=== PATIENT | female | born 1955 | race Caucasian/White ===

== ENCOUNTER 2019-07-31 08:35 | Outpatient (CLI) | payer MEDICARE, MEDICAID, SELFPAY ==
--- NOTE | 2019-07-31 08:45 | USCV_ITS ---
Génesis Titus Age: 64 Gender: F : 1955 Exam Date: 07/31/2019 08:44 Ordering Phys: Nessa Diaz MD ([email or web address]) Technologist: Wilner Mcgee Exam Location: [facility] Indication: LV FUNCT BP: 124 / 75 HR: 75 Rhythm: Sinus Technical Quality: Adequate MEASUREMENTS (Male / Female) Normal Values 2D ECHO LV Diastolic Diameter PLAX 4.3 cm 4.2 - 5.9 / 3.9 - 5.3 cm LV Systolic Diameter PLAX 2.5 cm IVS Diastolic Thickness 1.3 cm 0.6 - 1.0 / 0.6 - 0.9 cm IVS Systolic Thickness 1.2 cm LVPW Diastolic Thickness 1.1 cm 0.6 - 1.0 / 0.6 - 0.9 cm LVPW Systolic Thickness 1.4 cm LVOT Diameter 2.1 cm LV Ejection Fraction 2D Teich 73.6 % LV Ejection Fraction MOD 2C 71.7 % LV Ejection Fraction 2C AL 72.2 % LA Diameter 3.1 cm LA Width 3.4 cm LA Height 4.9 cm RA Width 3.3 cm RA Height 4.3 cm M-MODE LV Diastolic Diameter MM 5.5 cm 4.2 - 5.9 / 3.9 - 5.3 cm LV Systolic Diameter MM 3.3 cm LV Ejection Fraction MM Teich 70.7 % IVS Diastolic Thickness MM 1.0 cm 0.6 - 1.0 / 0.6 - 0.9 cm IVS Systolic Thickness MM 1.9 cm LVPW Diastolic Thickness MM 1.2 cm 0.6 - 1.0 / 0.6 - 0.9 cm LVPW Systolic Thickness MM 2.3 cm RV Diastolic Diameter MM 1.4 cm Aortic Annulus Diameter 3.5 cm LA Ao Ratio MM 0.9 MV E Point Septal Separation 1.1 cm DOPPLER AV Peak Velocity 160.0 cm/s LVOT Peak Velocity 137.0 cm/s AV Area Cont Eq vti 2.7 cm squared AV Area Cont Eq pk 3.0 cm squared MV Area PHT 4.3 cm squared Mitral E to A Ratio 0.7 MV E' Velocity 7.0 cm/s Mitral E to MV E' Ratio 2.2 Mitral E to LV E' Lateral Ratio 10.2 Mitral E to LV E' Septal Ratio 1.3 TR Peak Velocity 149.0 cm/s TR Peak Gradient 8.8 mmHg TV Peak E Velocity 59.0 cm/s Right Atrial Pressure 3.0 mmHg Pulmonary Artery Systolic Pressu 11.9 mmHg PV Peak Velocity 106.0 cm/s FINDINGS Left Ventricle Normal left ventricular cavity size. Normal left ventricular systolic function. No regional wall motion abnormalities. Left ventricular ejection fraction is estimated at 65 %. Grade I/IV diastolic dysfunction (abnormal relaxation filling pattern), normal to mildly elevated filling pressures. Right Ventricle The right ventricle is normal in size and function. Right Atrium The right atrium is normal in size. Left Atrium The left atrium is normal in size. Mitral Valve Mildly thickened mitral valve. No mitral valve stenosis. Trace mitral valve regurgitation. Aortic Valve Moderate aortic valve calcification. No aortic valve stenosis. Trace aortic valve regurgitation. Tricuspid Valve Structurally normal tricuspid valve without significant stenosis or regurgitation. Pulmonary artery systolic pressure is normal. Pulmonic Valve Structurally normal pulmonic valve without significant stenosis. There is no pulmonic regurgitation. Pericardium Normal pericardium without effusion. Aorta Normal ascending aorta dimension. CONCLUSIONS 1-Normal left ventricular cavity size. Normal left ventricular systolic function. No regional wall motion abnormalities. Left ventricular ejection fraction is estimated at 65 %. Grade I/IV diastolic dysfunction (abnormal relaxation filling pattern), normal to mildly elevated filling pressures. 2-Mildly thickened mitral valve. No mitral valve stenosis. Trace mitral valve regurgitation. 3-Moderate aortic valve calcification. No aortic valve stenosis. Trace aortic valve regurgitation. 4-There is no pericardial effusion. 5-Pulmonary artery systolic pressure is within normal limits. 6-Right atrial pressure is around 5 mm of mercury. 7-There are no prior echocardiogram studies to compare. Nessa Diaz MD (Electronically Signed) Final Date: 02 August 2019 11:16 S
== END 2019-07-31 08:36 | disposition home or self-care (01) ==
LOC: RAD 08:39
PROVIDERS: PCP Family Medicine; Visit Provider Internal Medicine Cardiovascular Disease
DX: I08.0 Rheumatic disorders of both mitral and aortic valves (principal); R06.02 Shortness of breath
CPT/HCPCS: 93306

== ENCOUNTER 2019-08-03 06:59 | Outpatient (CLI) | payer MEDICARE, MEDICAID, SELFPAY ==
--- NOTE | 2019-08-03 07:27 | ECG_ITS ---
NAME OF STUDY: LEXISCAN SESTAMIBI STRESS TEST INDICATION: Chest Pain, NOTE: Please note that this is the electrocardiogram portion of the Lexiscan/Sestamibi stress test. The perfusion scan will be documented separately. DATA: Baseline heart rate was 83 beats per minute. Baseline blood pressure was 143/91 millimeters of mercury. Target heart rate was 155. Maximum heart rate achieved was 99. which was 63 % of the predicted target heart rate. Maximum blood pressure was 171/91 millimeters of mercury. The reason for ending the test was completion of the protocol. The patient did not experience any symptoms. ELECTROCARDIOGRAM: BASELINE: Sinus rhythm. Normal axis. Possible old anterior wall myocardial infarction. Interventricular conduction delay EXERCISE: After Lexiscan injection, mild inferolateral ST-T changes suggestive of ischemic noted. No arrhythmia noted. CONCLUSION: Please note due to baseline abnormality of the EKG specificity and sensitivity of the EKG portion of LexiScan MIBI stress test will be low 1. EKG is suggestive of ischemia 2. Lexiscan injection unremarkable. 3. Perfusion scan will be documented separately. Electronically Signed On 08-04-2019 19:02:47 [employer] ARCHITECT by Nessa Diaz M.D. [email or web address]
[2019-08-03 07:28] VITALS: BMI 30.4
--- NOTE | 2019-08-03 07:28 | NMCV_ITS ---
NM deysi perf SPECT r/s* [id number] Génesis Titus Age: 64 Gender: F : 1955 Exam Date: 08/03/2019 08:22 Ordering Phys: Nessa Diaz MD ([email or web address]) Technologist: KENYON Marcos Exam Location: [facility] Indications: SHORTNESS OF BREATH STRESS TEST [facility] IMAGE PROTOCOL Rest/Stress 1 Lexiscan Day Radiopharmaceutical Dose (mCi) Administration Site Administered by Rest: Tc-99m 10.7 IV KENYON Swift Sestamibi Stress:Tc-99m 32.8 IV KENYON Swift Sestamibi Rest: 03-Aug-2019 60 Discovery 630 Stress: 03-Aug-2019 30 Discovery 630 0.4mg Lexiscan. Images obtained in supine and prone position. SPECT RESULTS Technical Quality: Excellent Raw Data Analysis: Breast attenuation Image Corrections: No attenuation or motion correction applied Summed Stress Score: 0 Summed Rest Score: 0 Summed Difference Score: 0 PERFUSION FINDINGS SPECT images demonstrate homogeneous tracer distribution throughout the myocardium. FUNCTIONAL RESULTS (calculated via Gated SPECT) Stress Image LV EF (%): 73 Stress EDV (mL):74 TID: 0.75 Stress ESV (mL):20 Rest Image LV EF (%): 73 FUNCTIONAL FINDINGS: There is normal left ventricular systolic function. IMPRESSIONS Myocardial perfusion imaging is normal and low probability for obstructive coronary disease. EKG segment will be documented separately. Nessa Diaz MD (Electronically Signed) Final Date: 03 August 2019 18:13 S
--- NOTE | 2019-08-03 09:08 | PC.NURSE ---
Unable to meet target Heart rate Pt unable to meet target heart rate on treadmill for stress test. Changed to chemical stress test per DR Joe torrez.
[2019-08-03] MEDS: regadenoson 0.4 Mg/5 ml Syringe IVP (09:10)
[2019-08-03 09:12] VITALS: BP 171/81; PULSE 96
== END 2019-08-03 07:00 | disposition home or self-care (01) ==
PROVIDERS: Family Provider Family Medicine; PCP Family Medicine; Visit Provider Internal Medicine Cardiovascular Disease
DX: R06.02 Shortness of breath (principal); R07.9 Chest pain, unspecified
CPT/HCPCS: 78452; 93017; A9500; J2785

== ENCOUNTER 2020-06-24 20:00 | Outpatient (CLI) | payer MEDICARE, MEDICAID, SELFPAY | END 2020-06-24 20:01 | disposition home or self-care (01) | LOC: SLEEP 06-25 09:07 | PROVIDERS: Family Provider Family Medicine; PCP Family Medicine; Visit Provider Family Medicine | DX: G47.33 Obstructive sleep apnea (adult) (pediatric) (principal) | CPT/HCPCS: 95810 ==

== ENCOUNTER → 2020-08-06 10:39 | Outpatient (BNVA) | payer MEDICARE, MEDICAID, SELFPAY | PROVIDERS: Family Provider Family Medicine; PCP Family Medicine; Referring Provider Family Medicine; Visit Provider Anesthesiology Pain Medicine | DX: M79.18 Myalgia, other site (principal); M47.812 Spondylosis without myelopathy or radiculopathy, cervical region; M54.12 Radiculopathy, cervical region; M47.814 Spondylosis without myelopathy or radiculopathy, thoracic region | CPT/HCPCS: 20553; 99205; J1030; J3490 ==

== ENCOUNTER → 2020-09-04 11:20 | Outpatient (BNVA) | payer MEDICARE, MEDICAID, SELFPAY | PROVIDERS: Family Provider Family Medicine; PCP Family Medicine; Visit Provider Anesthesiology Pain Medicine | DX: M79.18 Myalgia, other site (principal); M47.812 Spondylosis without myelopathy or radiculopathy, cervical region; M54.12 Radiculopathy, cervical region; M47.814 Spondylosis without myelopathy or radiculopathy, thoracic region; F17.210 Nicotine dependence, cigarettes, uncomplicated | CPT/HCPCS: 20553; 99214; J1030; J3490 ==

== ENCOUNTER → 2020-09-16 13:51 | Outpatient (BNVA) | payer MEDICARE, MEDICAID, SELFPAY | PROVIDERS: Family Provider Family Medicine; PCP Family Medicine; Visit Provider Anesthesiology Pain Medicine | DX: M47.812 Spondylosis without myelopathy or radiculopathy, cervical region (principal) | CPT/HCPCS: 64490; 64491; 64492; J3490 ==

== ENCOUNTER → 2020-10-01 09:37 | Outpatient (BNVA) | payer MEDICARE, MEDICAID, SELFPAY | PROVIDERS: Family Provider Family Medicine; PCP Family Medicine; Visit Provider Anesthesiology Pain Medicine | DX: M47.812 Spondylosis without myelopathy or radiculopathy, cervical region (principal); M54.12 Radiculopathy, cervical region; M47.814 Spondylosis without myelopathy or radiculopathy, thoracic region; M62.830 Muscle spasm of back; F17.210 Nicotine dependence, cigarettes, uncomplicated | CPT/HCPCS: 99214 ==

== ENCOUNTER → 2020-10-22 10:03 | Outpatient (BNVA) | payer MEDICARE, MEDICAID, SELFPAY | PROVIDERS: Family Provider Family Medicine; PCP Family Medicine; Visit Provider Anesthesiology Pain Medicine | DX: M47.812 Spondylosis without myelopathy or radiculopathy, cervical region (principal); M54.12 Radiculopathy, cervical region; M47.814 Spondylosis without myelopathy or radiculopathy, thoracic region; M47.816 Spondylosis without myelopathy or radiculopathy, lumbar region; M62.830 Muscle spasm of back; F17.210 Nicotine dependence, cigarettes, uncomplicated | CPT/HCPCS: 99214 ==

== ENCOUNTER 2020-10-31 20:00 | Outpatient (CLI) | payer MEDICARE, MEDICAID, SELFPAY | END 2020-10-31 20:01 | disposition home or self-care (01) | LOC: SLEEP 11-01 05:37 | PROVIDERS: Family Provider Family Medicine; PCP Family Medicine; Visit Provider Nurse Practitioner Family | DX: G47.33 Obstructive sleep apnea (adult) (pediatric) (principal) | CPT/HCPCS: 95811 ==

== ENCOUNTER → 2020-11-12 14:43 | Outpatient (BNVA) | payer MEDICARE, MEDICAID, SELFPAY | PROVIDERS: Family Provider Family Medicine; PCP Family Medicine; Visit Provider Anesthesiology Pain Medicine | DX: M47.816 Spondylosis without myelopathy or radiculopathy, lumbar region (principal); M54.9 Dorsalgia, unspecified; F17.210 Nicotine dependence, cigarettes, uncomplicated | CPT/HCPCS: 64493; 64494; 64495; J3490 ==

== ENCOUNTER → 2020-12-11 10:38 | Outpatient (BNVA) | payer MEDICARE, MEDICAID, SELFPAY | PROVIDERS: Family Provider Family Medicine; PCP Family Medicine; Visit Provider Anesthesiology Pain Medicine | DX: G89.29 Other chronic pain (principal); M47.812 Spondylosis without myelopathy or radiculopathy, cervical region; M54.12 Radiculopathy, cervical region; M47.814 Spondylosis without myelopathy or radiculopathy, thoracic region; M47.816 Spondylosis without myelopathy or radiculopathy, lumbar region; M62.830 Muscle spasm of back | CPT/HCPCS: 99214 ==

== ENCOUNTER → 2020-12-18 14:16 | Outpatient (BNVA) | payer MEDICARE, MEDICAID, SELFPAY | PROVIDERS: Family Provider Family Medicine; PCP Family Medicine; Visit Provider Anesthesiology Pain Medicine | DX: M47.812 Spondylosis without myelopathy or radiculopathy, cervical region (principal) | CPT/HCPCS: 64490; 64491; 64492; J3490 ==

== ENCOUNTER → 2021-01-17 13:03 | Outpatient (BNVA) | payer MEDICARE, MEDICAID, SELFPAY | PROVIDERS: Family Provider Family Medicine; PCP Family Medicine; Visit Provider Surgery | DX: Z20.822 Contact with and (suspected) exposure to COVID-19 (principal); Z86.010 Personal history of colon polyps | CPT/HCPCS: 87635 ==

== ENCOUNTER → 2021-03-21 09:40 | Outpatient (BNVA) | payer MEDICARE, MEDICAID, SELFPAY | PROVIDERS: Family Provider Family Medicine; PCP Family Medicine; Visit Provider Anesthesiology Pain Medicine | DX: M47.812 Spondylosis without myelopathy or radiculopathy, cervical region (principal); M54.12 Radiculopathy, cervical region; M47.814 Spondylosis without myelopathy or radiculopathy, thoracic region; M47.816 Spondylosis without myelopathy or radiculopathy, lumbar region; M62.830 Muscle spasm of back | CPT/HCPCS: 99214 ==

== ENCOUNTER → 2021-04-03 14:35 | Outpatient (BNVA) | payer MEDICARE, MEDICAID, SELFPAY | PROVIDERS: Family Provider Family Medicine; PCP Family Medicine; Visit Provider Anesthesiology Pain Medicine | DX: M47.812 Spondylosis without myelopathy or radiculopathy, cervical region (principal) | CPT/HCPCS: 64490; 64491; 64492; J3490 ==

== ENCOUNTER → 2021-04-17 09:38 | Outpatient (BNVA) | payer MEDICARE, MEDICAID, SELFPAY | PROVIDERS: Family Provider Family Medicine; PCP Family Medicine; Visit Provider Anesthesiology Pain Medicine | DX: M47.812 Spondylosis without myelopathy or radiculopathy, cervical region (principal); M54.12 Radiculopathy, cervical region; M47.814 Spondylosis without myelopathy or radiculopathy, thoracic region; M47.816 Spondylosis without myelopathy or radiculopathy, lumbar region; M62.830 Muscle spasm of back; G47.33 Obstructive sleep apnea (adult) (pediatric); M48.02 Spinal stenosis, cervical region; F41.1 Generalized anxiety disorder | CPT/HCPCS: 99214 ==

== ENCOUNTER → 2021-05-02 15:16 | Outpatient (BNVA) | payer MEDICARE, MEDICAID, SELFPAY | PROVIDERS: Family Provider Family Medicine; PCP Family Medicine; Visit Provider Allergy & Immunology | DX: Z01.812 Encounter for preprocedural laboratory examination (principal); Z20.822 Contact with and (suspected) exposure to COVID-19 | CPT/HCPCS: 87635 ==

== ENCOUNTER 2021-05-07 06:35 | Day surgery (SDC) | payer MEDICARE, MEDICAID, SELFPAY ==
[2021-05-05 09:37] VITALS: BMI 30.4
--- NOTE | 2021-05-07 06:38 | W.PM.OPSFHP ---
Same Day Surgery H&P Indication for Procedure/HPI DATE OF PROCEDURE: May 07, 2021 CHIEF COMPLAINT/INDICATIONFOR SURGICAL PROCEDURE: History of colon polyp PREOP DIAGNOSIS: History of colon polyps PLANNED PROCEDRUE: Operation Date: 05/07/21 07:30 Proposed Procedures p Colonoscopy 59310 Z86.010(Not Applicable) - Isreal Macedo MD 11/21/2020 This is a pleasant 65 years old female patient had history of colon polyps and had a colonoscopy about 6 years ago. Patient was tested positive and Cologuard and was [place] surveillance [place]. Denies any bleeding per rectum or history of colon cancer or nonintentional weight loss. 05/07/2021 Patient comes today for surveillance colonoscopy ROS All systems have been reviewed negative except as per the above or per problem list Medications/Allergies* Home Medications Medication Instructions Recorded Confirmed Type budesonide-formoterol HFA 160 2 puff INHALATION BID 07/10/19 05/05/21 History mcg-4.5 mcg/actuation aerosol inhaler ipratropium 20 mcg-albuterol 100 1 puff INHALATION Q4H 07/10/19 05/05/21 History mcg/actuation mist for inhalation ibuprofen 800 mg tablet 800 mg PO Q8H PRN 05/14/20 05/05/21 History levothyroxine 50 mcg capsule 75 mcg PO DAILY cap 05/14/20 05/05/21 History tizanidine 4 mg capsule 4 mg PO BID PRN 05/14/20 05/05/21 History metformin 500 mg tablet 500 mg PO DAILY 08/06/20 05/05/21 History atorvastatin 20 mg tablet 20 mg PO DAILY tab 10/22/20 05/05/21 History valsartan 160 mg tablet 320 mg PO DAILY tab 02/12/21 05/05/21 History bupropion HCl [Wellbutrin] 100 mg PO TID 05/06/21 05/06/21 History Allergies/Adverse Reactions Allergy/AdvReac Type Severity Reaction Status Date / Time Sulfa (Sulfonamide Allergy Unknown Unknown Verified 05/07/21 06:59 Antibiotics) naproxen AdvReac Severe breaks out Verified 05/07/21 06:59 in hives, lips and mouth start swelling Pertinent History/Comorbid Conditions* Medical History (Updated 02/13/21 @ 19:22 by Nessa Diaz MD) Bradycardia COPD (chronic obstructive pulmonary disease) HTN (hypertension) Hyperlipidemia Hypothyroidism Sleep apnea Surgical History (Updated 01/21/21 @ 15:45 by ILA Avila) S/P cholecystectomy S/P dilatation and curettage S/P oophorectomy Family History (Updated 11/21/20 @ 15:47 by MELBA Balderas) Alcoholism Father Heart disease Father Mother Sister Brother Cancer Father Hypertension Father Mother Sister Brother Denies family history of Anesthesia complication Bleeding disorder Social History History of recent travel: No Pertinent Exam Findings alert, oriented x 3, regular rate & rhythm and procedure specific exam findings (Abdominal examination nontender nondistended soft) Recommendations Surgery/Procedure today (Colonoscopy with possible biopsy and possible polypectomy) Coding Level of Care Code Acute 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
[2021-05-07 06:54] VITALS: BP 114/75; PULSE 73; RESP 18; TEMP 36.2; O2SAT 95
[2021-05-07] MEDS: sodium chloride 0.9% 1,000 ML 30 ML IV (07:11)
--- NOTE | 2021-05-07 07:25 | ANES.PREANE2 ---
Pre-Anesthetic Assessment Pre-Anesthetic Assessment: Height/Weight: Height 1.68 m Weight 85.729 kg Temp Pulse Resp BP Pulse Ox 97.2 F L 73 18 114/75 95 05/07/21 06:54 05/07/21 06:54 05/07/21 06:54 05/07/21 06:54 05/07/21 06:54 Preop Diagnosis: Colon polyps Proposed Procedure: Operation Date: 05/07/21 07:30 Proposed Procedures p Colonoscopy 84953 Z86.010(Not Applicable) - Isreal Macedo MD Last intake: Intake Last Liquid Date 05/06/21 Last Liquid Time 22:00 Last Solid Date 05/05/21 Social: Social History: Tobacco Exam: Pre-Anes Outpt Exam: alert, oriented x 3, clear to auscultation bilaterally and regular rate & rhythm Airway: Submandibular: WNL Cervical ROM: WNL MP: 2 Dentition: False History/ROS: No significant history except as noted and No significant complaints Pulmonary: Pulmonary: COPD, Cough, HERRING, Sleep apnea and SOB CV/HEM: CV/HEM: HTN : : None reported Hepatic: Hepatic: None reported GI: GI: None reported Metabolic: Metabolic: Thyroid Musc/skel: Musc/skel: OA/DJD Neuropsych: Neuropsych: None reported Anesthetic Plan: ASA status: 3 Anesthesia: Anesthesia Evaluation and MAC Risk of > 500 ml blood loss (7ml/kg in children): No Meds/Allergies Current Medications: Current Medications Generic Name Dose Route Start Last Admin Trade Name Freq PRN Reason Stop Dose Admin Sodium Chloride 1,000 mls @ 30 ml s/hr 05/07/21 06:45 05/07/21 07:11 Sodium Chloride 0.9% IV 30 mls/hr .Q24H IRENE Administration PFSH Anesthesia PFSH: Medical History Bradycardia COPD (chronic obstructive pulmonary disease) HTN (hypertension) Hyperlipidemia Hypothyroidism Sleep apnea Surgical History S/P cholecystectomy S/P dilatation and curettage S/P oophorectomy Family History Father Alcoholism Cancer Heart disease Hypertension Mother Heart disease Hypertension Sister Heart disease Hypertension Brother Heart disease Hypertension Denies family history of Anesthesia complication Bleeding disorder Social History History of recent travel: No Data Anesthesia Cardiac Studies: Cardiac Event Monitor 01/21/21
[2021-05-07 07:47] VITALS: BP 146/102; PULSE 77; RESP 22; O2SAT 96
[2021-05-07 08:02] VITALS: BP 139/75; PULSE 92; RESP 22; O2SAT 95
--- NOTE | 2021-05-07 08:34 | FL_ITS ---
WS: [id number] Barium enema, 05/07/2021 Clinical Data: incomplete colonoscopy Comparison: None. Fluoroscopy time: 2.5 minutes. Findings: The preliminary film showed a moderate amount of air in the colon. There are calcified lymph nodes in the left side of the abdomen. Vascular calcification was present. There are clips in the right upper quadrant from a cholecystectomy. The barium was introduced in a retrograde fashion to fill the entire colon. There is no obstruction. There are no masses or polyps. There were small diverticula of the sigmoid region. The haustral patte rn was normal. The ileocecal valve was identified. The post evacuation film was unremarkable. FL/FL barium enema [id number] Impression: Scattered sigmoid diverticula.
--- NOTE | 2021-05-07 14:58 | ANE.PACU2 ---
Inpatient post-anesthesia follow up: Airway intact: Yes Vital signs: Temperature 97.2 F Pulse Rate 92 Respiratory Rate 22 Blood Pressure 139/75 Pulse Oximetry 95 Oxygen Delivery Me thod Room Air Oxygen Flow Rate Fraction of Inspir ed Oxygen Hydration adequate: Yes Nausea and vomiting: No Pain level: 1 Mental status: Baseline
== END 2021-05-07 12:00 | disposition home or self-care (01) ==
PROVIDERS: PCP Family Medicine; Visit Provider Surgery
PROC: 0DJD8ZZ Inspection of Lower Intestinal Tract, Via Natural or Artificial Opening Endoscopic (ICD-10-PCS; CPT 45330; 2021-05-07 07:30)
DX: Z12.11 Encounter for screening for malignant neoplasm of colon (principal); Z86.010 Personal history of colon polyps; J44.9 Chronic obstructive pulmonary disease, unspecified; I10 Essential (primary) hypertension; E78.5 Hyperlipidemia, unspecified; E03.9 Hypothyroidism, unspecified; G47.30 Sleep apnea, unspecified; Z82.49 Family history of ischemic heart disease and other diseases of the circulatory system
CPT/HCPCS: 45330; 74270; 96360; J2704; J7030

== ENCOUNTER → 2021-05-12 10:51 | Outpatient (BNVA) | payer MEDICARE, MEDICAID, SELFPAY | PROVIDERS: PCP Family Medicine; Visit Provider Anesthesiology Pain Medicine | DX: M47.812 Spondylosis without myelopathy or radiculopathy, cervical region (principal); M54.12 Radiculopathy, cervical region; M47.814 Spondylosis without myelopathy or radiculopathy, thoracic region; M47.816 Spondylosis without myelopathy or radiculopathy, lumbar region; M62.830 Muscle spasm of back; F17.200 Nicotine dependence, unspecified, uncomplicated | CPT/HCPCS: 99214 ==

== ENCOUNTER → 2021-06-09 14:03 | Outpatient (BNVA) | payer MEDICARE, MEDICAID, SELFPAY | PROVIDERS: PCP Family Medicine; Visit Provider Anesthesiology Pain Medicine | DX: M79.18 Myalgia, other site (principal); M47.812 Spondylosis without myelopathy or radiculopathy, cervical region; M54.12 Radiculopathy, cervical region; M47.814 Spondylosis without myelopathy or radiculopathy, thoracic region; M47.816 Spondylosis without myelopathy or radiculopathy, lumbar region; F17.210 Nicotine dependence, cigarettes, uncomplicated | CPT/HCPCS: 20553; 99214; J1030; J3490 ==

== ENCOUNTER → 2021-07-08 10:12 | Outpatient (BNVA) | payer MEDICARE, MEDICAID, SELFPAY | PROVIDERS: PCP Family Medicine; Visit Provider Anesthesiology Pain Medicine | DX: M47.812 Spondylosis without myelopathy or radiculopathy, cervical region (principal); M54.12 Radiculopathy, cervical region; M47.814 Spondylosis without myelopathy or radiculopathy, thoracic region; M47.816 Spondylosis without myelopathy or radiculopathy, lumbar region; M62.830 Muscle spasm of back; F17.210 Nicotine dependence, cigarettes, uncomplicated | CPT/HCPCS: 99213; 99214 ==

== ENCOUNTER 2021-07-15 12:06 | Outpatient (CLI) | payer MEDICARE, MEDICAID, SELFPAY ==
--- NOTE | 2021-07-15 12:16 | XR_ITS ---
WS: [id number] CHEST 2 VIEWS HISTORY: Cough and COPD. COMPARISON: None available. Lungs: Mild pulmonary hyperinflation with flattening of the diaphragms. No pneumonia. No pleural effu ale or pneumothorax. Cardiac size: Normal. Mediastinum/Aorta: Mild atherosclerosis aorta. Bones: Normal. Surgical clips in the RIGHT upper quadrant. XR/XR chest 2V* [id number] IMPRESSION: Mild emphysema. No pneumonia.
== END 2021-07-15 12:07 | disposition home or self-care (01) ==
PROVIDERS: PCP Family Medicine; Visit Provider Nurse Practitioner Family
DX: J44.9 Chronic obstructive pulmonary disease, unspecified (principal)
CPT/HCPCS: 71046

== ENCOUNTER 2021-09-01 14:07 | Outpatient (CLI) | payer MEDICARE, MEDICAID, SELFPAY ==
--- NOTE | 2021-09-01 14:15 | CT_ITS ---
WS: [id number] CT ANGIOGRAPHY OF THE ABDOMINAL AORTA WITH RUNOFF TO THE ANKLES HISTORY: Diabetes and arterial circulation abnormalities. TECHNIQUE: Arterial injection is performed during imaging to evaluate the aorta and runoff vessels to the ankles. MIP and volume rendering imaging has also been performed. All images are reviewed. All C T scans at [facility] use at least one of these dose optimization techniques: automated exposu re control; mA and/or kV adjustment per patient size (includes targeted exams where dose is matched t o clinical indication); or iterative reconstruction. Contrast: Omnipaque 350; 95 mL IV. DLP: 1716.48 mGy.cm COMPARISON: None available. Lung bases are clear. Heart is normal size. No significant hiatal hernia. Abdominal aorta: Scattered calcified plaque and intimal thickening throughout the abdominal aorta to the bifurcation. No aneurysm. Lumen is mildly narrowed with the smallest diameter of 11 mm distally. There is calcification at the origins of the celiac axis and SMA. No high-grade stenosis or occlusion . ALFONSO is patent RIGHT lower extremity arterial system: Focal stenosis in the proximal common iliac artery is 60%. The re is additional calcified plaque throughout the remaining common iliac artery through the internal a nd external iliac arteries. Small caliber SFA. Deep profunda is patent. There are multiple areas of s tenosis approaching 40-50% throughout the SFA. Popliteal artery is intact. Three-vessel runoff to the ankle. The vessels are apparent to the distal tibia. The enhancement is less robust distally probabl y due to phase of injection. LEFT lower extremity arterial system: Moderate calcified plaque and intimal thickening in the LEFT co mmon iliac artery extending into the external and internal iliac arteries. There is scattered plaque with stenoses around 50%. Plaque continues into the SFA. Deep profundas intact. There is additional p laque extends into the distal SFA and popliteal artery. Three-vessel runoff to the ankle is noted. Th e vessels are small caliber. Distal tibial runoff is poorly visualized due to the lack of robust enha ncement. This is probably secondary to timing of injection. Marked low attenuation throughout the liver. Heterogeneous liver with changes of hepatic steatosis an d hepatomegaly. Prior cholecystectomy. Variable enhancement throughout the spleen related to early ph ase injection. Normal size pancreas. Pancreatic duct is top normal size. Normal common bile duct. No adrenal mass. Kidneys are mildly atrophic bilaterally with focal areas of cortical thinning and prior infarcts. No solid mass or obstruction. No adenopathy or ascites. No free air. No GI tract obstructi on. The appendix is not identified. CT/CT angio abd aorta runof [id number] IMPRESSION: 1. Moderate atherosclerotic plaque within the abdominal aorta with no aneurysm . 2. Proximal RIGHT iliac artery stenosis 60%. 3. Additional multi focal areas of calcified plaque and intimal thickening chepe aterally throughout the iliac arteries and SFAs. Additional stenoses 50% or les s. 4. Three-vessel runoff to the distal tibias is noted. Beyond the distal tibia is the enhancement is less robust was is probably due to timing of the injectio n. Arteries are small caliber below the knee. 5. Prior cholecystectomy. 6. Hepatic steatosis and hepatomegaly.
[2021-09-01] MEDS: iohexol 300 mg/mL 100 mL Btl IV (15:44)
[2021-09-01 15:52] LABS: Blood Urea Nitrogen 14 mg/dL (8-23); Glomerular Filtration Rate 55.3 mL/min (90-130)
== END 2021-09-01 14:08 | disposition home or self-care (01) ==
LOC: RAD 14:09
PROVIDERS: PCP Family Medicine; Visit Provider Nurse Practitioner Family
DX: R09.89 Other specified symptoms and signs involving the circulatory and respiratory systems (principal); I70.0 Atherosclerosis of aorta; I77.1 Stricture of artery; Z90.49 Acquired absence of other specified parts of digestive tract; K76.0 Fatty (change of) liver, not elsewhere classified; R16.0 Hepatomegaly, not elsewhere classified
CPT/HCPCS: 75635; 82565; 84520

== ENCOUNTER 2021-09-11 14:14 | Outpatient (CLI) | payer MEDICARE, MEDICAID, SELFPAY ==
--- NOTE | 2021-09-11 14:19 | XR_ITS ---
WS: [email or web address] SCREENING DEXA SCAN [employer] CLINICAL INFORMATION: ASYMPTOMATIC MENOPAUSAL STATE COMPARISON: None. FINDINGS: The L1-L4 bone mineral density measures 0.998 g/cm2. This corresponds to a T score score of -1.5 and Z score of -0.7. Left femoral neck bone mineral density measures 0.868 g/cm2. This corresponds to a T score of -1.1 an d Z score of -0.3. Right femoral neck bone mineral density measures 0.820 g/cm2. This corresponds to a T score -1.5of an d Z score of -0.7. Mean femoral neck bone mineral density measures 0.844 g/cm2. This corresponds to a T score of -1.3 an d Z score of -0.5. XR/XR DEXA axial skeleton* [id number] IMPRESSION: Osteopenia Patient's FRAX calculated 10 year probability for major osteoporotic fracture i s 18.8 % and osteoporotic hip fracture is 5.1%.
== END 2021-09-11 14:15 | disposition home or self-care (01) ==
PROVIDERS: PCP Family Medicine; Visit Provider Family Medicine
DX: Z78.0 Asymptomatic menopausal state (principal); M85.80 Other specified disorders of bone density and structure, unspecified site
CPT/HCPCS: 77080

== ENCOUNTER → 2021-09-30 15:40 | Outpatient (BNVA) | payer MEDICARE, MEDICAID, SELFPAY | PROVIDERS: PCP Family Medicine; Visit Provider Internal Medicine | DX: I73.9 Peripheral vascular disease, unspecified (principal); I10 Essential (primary) hypertension; E78.2 Mixed hyperlipidemia | CPT/HCPCS: 99214 ==

== ENCOUNTER 2021-10-14 12:28 | Outpatient (CLI) | payer MEDICARE, MEDICAID, SELFPAY ==
[2021-10-14 12:52] LABS: Basophils # 0.1 10^3/uL (0.0-0.1); Basophils % 1.1 %; Eosinophils # 0.2 10^3/uL (0.0-0.8); Eosinophils % 3.3 %; Hematocrit 44.2 % (37.0-47.0); Hemoglobin 14.4 g/dL (11.5-15.3); Lymphocytes # 1.9 10^3/uL (0.8-4.8); Lymphocytes % 34.3 %; Mean Corpuscular HGB Conc 32.6 g/dL (30.0-36.0); Mean Corpuscular Volume 95.1 fl (81-99); Mean Platelet Volume 11.4 fL (7.4-10.4); Monocytes # 0.5 10^3/uL (0.2-0.9); Neutrophils # 2.76 10^3/uL (1.8-7.7); Neutrophils % 51.1 %; Nucleated Red Blood Cells % 0 %; Platelet Count 223 10^3/cmm (130-400); Red Blood Count 4.65 10^6/uL (4.1-5.3); Red Cell Distribution Width 13.1 % (12.1-15.1); White Blood Count 5.4 10^3/uL (4.0-10.0)
[2021-10-14 13:10] LABS: INR 0.96 (0.83-1.21); Prothrombin Time (Patient) 13.1 Seconds (12.0-15.1)
[2021-10-14 13:14] LABS: Anion Gap 14.4 (5-19); Blood Urea Nitrogen 15 mg/dL (8-23); Calcium 8.9 mg/dL (8.5-10.5); Carbon Dioxide 29 mmol/L (22-29); Chloride 101 mmol/L (98-107); Glomerular Filtration Rate 55.3 mL/min (90-130); Glucose 105 mg/dL (65-115); Osmolality Calculated 291 mOsm/kg (285-295); Potassium 4.4 mmol/L (3.5-5.1); Sodium 140 mmol/L (136-145)
== END 2021-10-14 12:29 | disposition home or self-care (01) ==
LOC: LAB 12:32
PROVIDERS: PCP Family Medicine; Visit Provider Internal Medicine
DX: Z01.812 Encounter for preprocedural laboratory examination (principal); I10 Essential (primary) hypertension; E78.5 Hyperlipidemia, unspecified
CPT/HCPCS: 80048; 85025; 85610

== ENCOUNTER 2021-10-16 06:00 | Outpatient (CLI) | payer MEDICARE, MEDICAID, SELFPAY ==
[2021-10-16] VITALS (13 sets, daily range): BP systolic 92–134; BP diastolic 54–92; PULSE 63–74; RESP 16–28; TEMP 37; O2SAT 92–96; BMI 31.3
--- NOTE | 2021-10-16 06:00 | XACV_ITS ---
Ht: 168 cm Wt: 88 kg BSA: 2.05 m2 Gender: Female : 1955 Exam Type: Invasive Peripheral Vascular Procedure(s): Procedure Description: Peripheral Cath Diagnostic Procedure Procedure Description: Abdominal aortic angiography Procedure Description: Lower extremities' angiography Exam Priority: Routine Abdominal Diagnostic Findings Patent distal aorta. Lower Extremity Diagnostic Findings Right common iliac artery: Has ostial 30% stenosis. There is significant calcification. We crossed the stenotic segment with UF catheter and measured arterial pressure pre and post stenosis. There was no significant pressure gradient noted. Right external iliac artery: Patent Right internal iliac artery: Patent Right common femoral artery: Patent Right profunda artery: Patent Right SFA: Patent Right popliteal artery: Patent Below the knee patient has good three-vessel runoff. Left common iliac artery: Patent Left external iliac artery: Patent Left internal iliac artery: Patent Left common femoral artery: Patent Left profunda artery: Patent Left SFA: Patent Left popliteal artery: Patent Below the knee patient has good three-vessel runoff to the foot. Indication: Severe bilateral claudication. Conclusions Mild to moderate ostial right common iliac artery stenosis. Recommendations Aggressive risk factor modification. Outpatient cardiology follow-up in 4 weeks. Hemodynamic Data Phase:Rest AO : 122.0 / 68.0 ( 91.0 ) @ 8:47:00 AM 139.0 / 66.0 ( 96.0 ) @ 8:53:00 AM 133.0 / 64.0 ( 93.0 ) @ 8:53:00 AM Access Site Site: Right Femoral artery Sheath Size: 6 Fr Hemost... Method: Manual Compression Hemost... Success: Successful Procedure Details Findings Procedure Consent Obtained. Admit Source: Out Patient. Pre-Procedure Time Out. Identified patient by full name and date of as verbalized by the patient/guarantor. Does the consent match the physician's order: Yes. Accurate & Complete Informed Consent: Yes. Inpatient/Outpatient History & Physical on Chart: Yes. If H&P is completed, is and addenduem needed: N/A; If yes, is the addendum complete: N/A. Visualize and Verify Site with Patient/Guarantor: N/A. Relevant Radiology Images available: N/A. Pre-op teaching completed and patient verbalized understanding. The risks, benefits, and alternatives of sedation and/or procedure were discussed by physician. The patient agrees to continue. Procedure started. 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 Correct patient, site and procedure confirmed by cath team. Current diagnosis: PVD. PERRLA. Strong, equal hand make ready worker bilaterally. Lungs clear x 5 lobes. IV Site on Arrival: 20 gauge in the right anticubital. IV Fluids: 0.9% NaCl at KVO. 0 mL infused prior to cath lab radiological technologist. Pre Procedural Pulses: bilateral dorsalis pedis was 3+. Pre Procedural Pulses: right posterior tibial was 2+. Pre Procedural Pulses: left posterior tibial was Doppled. Oxygen started at 2liters/min via nasal canula. right groin was prepped with chloroprep then draped in the usual sterile fashion. left groin was prepped with chloroprep then draped in the usual sterile fashion. Physician notified. Baseline sample Acquired. HR: 64 BPM. Physician arrived. Physician scrubbed in. Time out performed with cath team. Lidocaine 1% infiltrated to the left groin. Arterial access obtained with micropuncture set. Wire and needle removed, manual pressure held. Arterial access obtained with micropuncture set. Abdominal aortogram performed in GARCÍA @ 10 mL/sec for a total of 30 mL. A 5FrFr UF catheter in over wire. Glidewire inserted. Glidewire removed. Right superficial femoral selected and arteriogram with runoff performed @ 10 mL/sec for a total of 30 mL. Sheath injected in Left common femoral artery and runoff performed. A Left femoral angiogram was performed to determine safe placement of closure device. Medication's Wasted: Heparin = 1000 u. Total IV fluids: 48 mL. A Manual Compression was successful obtaining hemostatsis at the Right Femoral artery insertion site. Post-op diagnosis: Moderate ostial right common iliac disease. Post Procedure: Pulses reassessed and unchanged. PERRLA. Strong, equal hand make ready worker bilaterally. No VTE prophylaxis required. Complications: none. Estimated blood loss: 5mL-10mL. Responsiveness - Normal response to verbal stimuli; alert and oriented, PERRLA. Airway - Unaffected, no intervention required; spontaneous ventilation. Circulation: W/N/L, pulses unchanged. Nausea/Vomiting: No. Procedure completed. Patient transferred by bed to CPRU. Vital chart was stopped. Procedure Medications Start: 7:31 AM Stop: 7:31 AM Medication: Versed Amount: 1 mg Route: I.V. Start: 7:31 AM Stop: 7:31 AM Medication: Fentanyl Amount: 50 mcg Route: I.V. Start: 7:41 AM Stop: 7:41 AM Medication: Versed Amount: 1 mg Route: I.V. Start: 7:31 AM Stop: 7:31 AM Medication: 0.9% Saline Amount: 75 ml/hr Route: I.V. drip Start: 7:51 AM Stop: 7:51 AM Medication: Versed Amount: 1 mg Route: I.V. I, the attending physician, have reviewed and verified all procedure medications. Yes, all medications given per verbal order History/Risk Factors Hypertension: Yes Dyslipidemia: Yes Peripheral Arterial Disease (PAD): Yes Obesity: Yes Renal Disease: No Tobacco Use: Current/Recent(w/in 1 year) Prior 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 PCI: No CABG: No Valve Surgery: No Report Signatures Finalized by Yariel Payan MD on 10/30/2021 08:47 PM
[2021-10-16] MEDS: diphenhydrAMINE 50 mg Capsule PO (06:18)
--- NOTE | 2021-10-16 07:25 | W.PM.OPSUD ---
Surgery/Procedure H&P Update DATE OF PROCEDURE: October 16, 2021 DATE H&P PERFORMED: 09/30/21 H&P UPDATE INFORMATION: I have reviewed H&P completed within last 30 days, I have examined patient prior to procedure and No changes to prior documentation PREOP DIAGNOSIS: Severe lifestyle limiting claudication PRIMARY INDICATION FOR PROCEDURE: Severe lifestyle limiting claudication PLANNED PROCEDURE: Operation Date: 10/16/21 07:00 Proposed Procedures p Peripheral Diagnostic(Bilateral) - Yariel Payan M.D Possible percutaneous intervention PATIENT REASSESSED PRIOR TO SEDATION, WITH NO CHANGE NOTED: Yes PHYSICAL EXAM: alert, oriented x 3, clear to auscultation bilaterally and regular rate & rhythm AIRWAY EVAL/ANESTHESIA PLAN: ASA III, Monitored Anesthesia, Local Anesthesia, Risks, benefits & alternatives of sedation and/or procedure discussed and Patient agrees to continue as planned
--- NOTE | 2021-10-16 08:15 | SUR.PHASEI ---
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 PATIENT DROWSY, AWAKENS TO VOICE EASILY. A & O X3. LIBRARY DIRECTOR PLACED AND VITAL SIGNS OBTAINED. DRESSING TO LEFT GROIN SITE DRY AND INTACT. GROIN SOFT WITH NO HEMATOMA NOTED. POST SHEATH REMOVAL ACTIVITY INSTRUCTIONS GIVEN TO THE PATIENT WITH HER UNDERSTANDING VERBALIZED. NO OTHER CHANGES FROM PRE CATH ASSESSMENT.
--- NOTE | 2021-10-16 09:00 | SUR.PHASEI ---
DR DUKE AT BEDSIDE TO UPDATE THE PATIENT AND HER BROTHER THELMA ABOUT THE PROCEDURE FINDINGS. THELMA WILL BE GOING HOME TO TAKE CARE OF THE PATIENTS ANIMALS AND BE BACK AT THE HOSPITAL ABOUT 1400. NO OTHER CHANGES AT THIS TIME.
--- NOTE | 2021-10-16 12:00 | SUR.PHASEI ---
PATIENT TRANSFERRED VIA BED TO [facility]
--- NOTE | 2021-10-16 14:57 | PC.NURSE ---
dc'd pts piv and monitor. reviewed discharge order, follow up, activity level, medications with patient. no further questions at this time. Left hospital via wheelchair to private vehicle with brother in law.
== END 2021-10-16 14:40 | disposition home or self-care (01) ==
LOC: CCL 06:03 → CSU 09:51
PROVIDERS: PCP Family Medicine; Visit Provider Internal Medicine
DX: I70.202 Unspecified atherosclerosis of native arteries of extremities, left leg (principal); I70.211 Atherosclerosis of native arteries of extremities with intermittent claudication, right leg; E78.2 Mixed hyperlipidemia; I10 Essential (primary) hypertension; J44.9 Chronic obstructive pulmonary disease, unspecified; E03.9 Hypothyroidism, unspecified; G47.30 Sleep apnea, unspecified; F17.210 Nicotine dependence, cigarettes, uncomplicated
CPT/HCPCS: 36415; 75625; 75716; 96360; 96361; 99152; 99153; C1769; C1887; C1894; J1644; J2250; J3010; J3490; J7030; Q0163; Q9967

== ENCOUNTER → 2021-10-22 10:50 | Outpatient (BNVA) | payer MEDICARE, MEDICAID, SELFPAY | PROVIDERS: PCP Family Medicine; Visit Provider Nurse Practitioner Family | DX: Z09 Encounter for follow-up examination after completed treatment for conditions other than malignant neoplasm (principal); I10 Essential (primary) hypertension; F17.210 Nicotine dependence, cigarettes, uncomplicated | CPT/HCPCS: 36415; 80048; 99213; 99214 ==

== ENCOUNTER → 2021-10-29 15:08 | Outpatient (BNVA) | payer MEDICARE, MEDICAID, SELFPAY | PROVIDERS: PCP Family Medicine; Visit Provider Internal Medicine | DX: R16.0 Hepatomegaly, not elsewhere classified (principal); I73.9 Peripheral vascular disease, unspecified; B35.1 Tinea unguium; K56.699 Other intestinal obstruction unspecified as to partial versus complete obstruction; R00.1 Bradycardia, unspecified; L60.3 Nail dystrophy | CPT/HCPCS: 80053; 80061; 82105; 85025; 86705; 86706; 86709; 86803; 87340; 87522 ==

== ENCOUNTER → 2021-11-27 14:34 | Outpatient (BNVA) | payer MEDICARE, MEDICAID, SELFPAY | PROVIDERS: PCP Family Medicine; Visit Provider Internal Medicine | DX: R16.0 Hepatomegaly, not elsewhere classified (principal); R76.8 Other specified abnormal immunological findings in serum; B19.20 Unspecified viral hepatitis C without hepatic coma | CPT/HCPCS: 86705; 86706; 86709; 86803; 87340; 87522 ==

== ENCOUNTER → 2021-12-05 10:24 | Outpatient (BNVA) | payer MEDICARE, MEDICAID, SELFPAY | PROVIDERS: PCP Family Medicine; Visit Provider Internal Medicine | DX: I73.9 Peripheral vascular disease, unspecified (principal); E78.2 Mixed hyperlipidemia; I10 Essential (primary) hypertension; R07.9 Chest pain, unspecified; F17.210 Nicotine dependence, cigarettes, uncomplicated | CPT/HCPCS: 99214 ==

== ENCOUNTER 2021-12-05 11:35 | Outpatient (CLI) | payer MEDICARE, MEDICAID, SELFPAY ==
--- NOTE | 2021-12-05 11:47 | XR_ITS ---
WS: [id number] XR knee RT 3V* [id number] REASON FOR EXAM: R KNEE PAIN FINDINGS: No fracture or focal bone lesion. Mild/moderate narrowing of the medial knee joint space with subchondral sclerosis and small marginal osteophytes. Mild/moderate narrowing of the lateral knee joint space with subchondral sclerosis and small marginal osteophytes. Mild narrowing of the patellofemoral joint space with subchondral sclerosis and small marginal osteop hytes. Possible small suprapatellar knee joint effusion. XR/XR knee RT 3V* [id number] IMPRESSION: No fracture. Possible small knee joint effusion. Mild to moderate osteoarthritis. Kellgren-Eric Classification:
== END 2021-12-05 11:36 | disposition home or self-care (01) ==
LOC: RAD 11:39
PROVIDERS: PCP Family Medicine; Visit Provider Family Medicine
DX: M25.561 Pain in right knee (principal); M17.11 Unilateral primary osteoarthritis, right knee
CPT/HCPCS: 73562

== ENCOUNTER 2021-12-17 10:29 | Outpatient (CLI) | payer MEDICARE, MEDICAID, SELFPAY ==
--- NOTE | 2021-12-17 10:44 | XR_ITS ---
WS: [id number] Lateral views of cervical spine in flexion and extension positions. 12/17/2021 Clinical Data: CERVICALGIA Comparison: None. Findings: There is no limitation of motion on flexion or extension. Minimal 0.2 cm subluxation of C4 on C5 on f lexion occurs. There is minimal disc space narrowing at C4-C5 and C5-C6. There is minimal osteoarthri tic spurring anteriorly at C5 and C6. No prevertebral soft tissue swelling is present. No compression fractures are noted. XR/XR cervical spine fl/ex [id number] Impression: 1. Minimal 0.2 subluxation of C4 on C5 on flexion. 2. Minimal disc space narrowing at C4-C5 and C5-C6.
== END 2021-12-17 10:30 | disposition home or self-care (01) ==
LOC: RAD 10:31
PROVIDERS: PCP Family Medicine; Visit Provider Nurse Practitioner
DX: M54.2 Cervicalgia (principal); M50.322 Other cervical disc degeneration at C5-C6 level; M50.321 Other cervical disc degeneration at C4-C5 level
CPT/HCPCS: 72040

== ENCOUNTER 2022-01-01 09:28 | Outpatient (CLI) | payer MEDICARE, MEDICAID, SELFPAY ==
--- NOTE | 2022-01-01 09:15 | USCV_ITS ---
Génesis Titus Age: 66 Gender: F : 1955 Exam Date: 01/01/2022 10:13 Ordering Phys: Yariel Payan M.D ([email or web address]) Technologist: Rena Huff [place] [facility] [place]: Chest Pain BP: 142 / 82 HR: 60 Rhythm: Sinus Technical Quality: Adequate MEASUREMENTS (Male / Female) Normal Values 2D ECHO LV Diastolic Diameter PLAX 4.4 cm 4.2 - 5.9 / 3.9 - 5.3 cm LV Systolic Diameter PLAX 2.3 cm LV Chamber Size 3.6 cm IVS Diastolic Thickness 1.3 cm 0.6 - 1.0 / 0.6 - 0.9 cm IVS Systolic Thickness 1.6 cm LVPW Diastolic Thickness 1.3 cm 0.6 - 1.0 / 0.6 - 0.9 cm LVPW Systolic Thickness 1.7 cm RV Chamber Size 1.9 cm LVOT Diameter 2.0 cm LV Ejection Fraction 2D Teich 80.2 % LV Ejection Fraction MOD 2C 67.9 % LV Ejection Fraction 2C AL 67.3 % LA Diameter 2.9 cm LA Width 2.8 cm LA Height 3.0 cm RA Width 2.3 cm RA Height 2.5 cm Aorta at Sinotubular Diameter 3.0 cm IVC Diameter 1.4 cm M-MODE Aortic Annulus Diameter 1.7 cm LA Ao Ratio MM 1.1 MV E Point Septal Separation 0.4 cm DOPPLER AV Peak Velocity 114.0 cm/s LVOT Peak Velocity 97.0 cm/s AV Area Cont Eq vti 3.0 cm squared AV Area Cont Eq pk 2.8 cm squared MV Area PHT 2.3 cm squared Mitral E to A Ratio 0.8 MV E' Velocity 36.0 cm/s Mitral E to MV E' Ratio 7.5 Mitral E to LV E' Lateral Ratio 8.3 Mitral E to LV E' Septal Ratio 6.8 TR Peak Velocity 113.1 cm/s TR Peak Gradient 5.1 mmHg TR Mean Velocity 80.6 cm/s TR Mean Gradient 3.0 mmHg TR Velocity Time Integral 28.9 cm TV Peak E Velocity 47.0 cm/s Right Atrial Pressure 3.0 mmHg Pulmonary Artery Systolic Pressu 8.1 mmHg PV Peak Velocity 38.0 cm/s RV Acceleration Time 0.1 s RV Ejection Time 0.3 s RV AcT/ET 0.4 FINDINGS Left Ventricle Normal left ventricular size. LV systolic function is normal with EF of 55-60%. No regional wall motion abnormalities. Grade 1 diastolic dysfunction Right Ventricle The right ventricle is normal in size and function. Right Atrium The right atrium is normal in size. Left Atrium The left atrium is normal in size. Mitral Valve Thickened mitral valve without significant stenosis or prolapse. There is trace mitral regurgitation. Aortic Valve Thickened aortic valve without significant stenosis. There is no aortic regurgitation. Tricuspid Valve Grossly normal. No significant stenosis or regurgitation. Pulmonic Valve Not well-visualized Pericardium Normal pericardium without effusion. Aorta Normal ascending aorta dimension. IVC CONCLUSIONS LV systolic function is normal with EF of 55 to 60%. Grade 1 diastolic dysfunction. Trace mitral regurgitation. Compared to prior echocardiogram from 07/31/2019, no significant changes are seen. Yariel Payan MD (Electronically Signed) Final Date: 13 January 2022 18:28 S
== END 2022-01-01 09:29 | disposition home or self-care (01) ==
PROVIDERS: PCP Family Medicine; Visit Provider Internal Medicine
DX: I34.0 Nonrheumatic mitral (valve) insufficiency (principal); R07.9 Chest pain, unspecified
CPT/HCPCS: 93306

== ENCOUNTER 2022-01-09 07:26 | Outpatient (CLI) | payer MEDICARE, MEDICAID, SELFPAY ==
--- NOTE | 2022-01-09 | ECG_ITS ---
[facility] Test Date: 2022-01-09 Pat Name: Génesis Titus Department: Room: Gender: Female Audio Visual Coordinator: : 1955 Requested By: Yariel Payan Order Number: [id number] Shaun MD: Yariel Payan M.D. Interpretive Statements NAME OF STUDY: LEXISCAN SESTAMIBI STRESS TEST INDICATION: [htn/cp] Procedure: At the baseline, the blood pressure was 147/90 mmHg with a heart rate of 60 bpm. The electrocardiogram showed normal sinus rhythm, normal axis with normal ST and T's. The Lexiscan was infused over a period of 20 seconds. A total of 0.4 mg of Lexiscan was infused. The stress phase was continued for a total of 5 minutes. Heart rate was at the end of stress phase was 74 bpm and a blood pressure of 124/74 mmHg. The EKG at the peak infusion revealed since normal sinus rhythm with no significant ST-T wave changes. Sestamibi was injected 20 seconds after the Lexiscan infusion. Blood pressure at the end of recovery phase was 141/73 mmHg with a heart rate of 74 bpm. Conclusion: 1. Normal EKG response to Lexiscan infusion 2. No Lexiscan induced chest pain or cardiac arrhythmia. 3. Normal blood pressure and heart rate response. 4. Sestamibi/sestamibi perfusion scan pending; see separate report. Electronically Signed On 01-26-2022 0:08:37 CDT by Yariel Payan M.D. [email or web address]
[2022-01-09 07:54] VITALS: BMI 29.7
--- NOTE | 2022-01-09 07:56 | NMCV_ITS ---
NM deysi perf SPECT r/s* [id number] Génesis Titus Age: 66 Gender: F : 1955 Exam Date: 01/09/2022 08:40 Ordering Phys: Yariel Payan M.D ([email or web address]) Technologist: KENYON Swift Exam Location: [facility] Indications: CP, SOB STRESS TEST Please see separate stress [facility] for full findings IMAGE PROTOCOL Rest/Stress 1 Lexiscan Day Radiopharmaceutical Dose (mCi) Administration Site Administered by Rest: Tc-99m 10.7 IV KENYON Swift Sestamibi Stress:Tc-99m 32.8 IV KENYON Swift Sestamibi Rest: 09-Jan-2022 60 Discovery 630 Stress: 09-Jan-2022 30 Discovery 630 0.4mg Lexiscan. Images obtained in supine and prone position. SPECT RESULTS Technical Quality: Good Raw Data Analysis: Breast attenuation Image Corrections: Patient motion artifact - motion correction applied Summed Stress Score: 1 Summed Rest Score: 0 Summed Difference Score: 1 PERFUSION FINDINGS SPECT images demonstrate homogeneous tracer distribution throughout the myocardium. FUNCTIONAL RESULTS (calculated via Gated SPECT) Stress Image LV EF (%): 75 Stress EDV (mL):68 TID: 0.78 Stress ESV (mL):17 FUNCTIONAL FINDINGS: There is normal left ventricular systolic function. IMPRESSIONS 1. Normal myocardial perfusion imaging with no evidence of ischemia 2. LV systolic function is normal Yariel Payan MD (Electronically Signed) Final Date: 13 January 2022 17:34 S
[2022-01-09] MEDS: regadenoson 0.4 Mg/5 ml Syringe IVP (09:39)
[2022-01-09 09:50] VITALS: BP 141/73; PULSE 73
== END 2022-01-09 07:27 | disposition home or self-care (01) ==
LOC: CDL 07:27
PROVIDERS: PCP Family Medicine; Visit Provider Internal Medicine
DX: R07.9 Chest pain, unspecified (principal); R06.02 Shortness of breath
CPT/HCPCS: 78452; 93017; A9500; J2785

== ENCOUNTER → 2022-01-13 10:53 | Outpatient (BNVA) | payer MEDICARE, MEDICAID, SELFPAY | PROVIDERS: PCP Family Medicine; Visit Provider Podiatrist Foot & Ankle Surgery | DX: L60.3 Nail dystrophy (principal) | CPT/HCPCS: 99213 ==

== ENCOUNTER 2022-01-20 15:02 | Outpatient (CLI) | payer MEDICARE, MEDICAID, SELFPAY ==
--- NOTE | 2022-01-20 15:00 | US_ITS ---
WS: [email or web address] ULTRASOUND THYROID TECHNIQUE: Ultrasound of the thyroid. CLINICAL INFORMATION: found on a c spine study 2 years ago at 16mm COMPARISON: None. FINDINGS: Thyroid: Right and left thyroid lobes are normal in size and echotexture. Solid RIGHT thyroid nodule measuring 1.2 x 1.3 x 1.5 cm. No suspicious left-sided nodules. Right thyroid lobe: 3.6 cm x 1.1 cm x 1.6 cm Left thyroid lobe: 2.0 cm x 0.7 cm x 0.9 cm. Isthmus: 0.4 mm. Cervical lymphadenopathy: A few slightly prominent cervical lymph nodes, no lymphadenopathy. US/US thyroid [id number] IMPRESSION: Solid RIGHT thyroid nodule measuring 1.2 x 1.3 x 1.5 cm. This can be further ev aluated with FNA.
== END 2022-01-20 15:03 | disposition home or self-care (01) ==
PROVIDERS: PCP Family Medicine; Visit Provider Internal Medicine
DX: E04.1 Nontoxic single thyroid nodule (principal)
CPT/HCPCS: 76536

== ENCOUNTER 2022-01-29 | Outpatient (CLI) | payer MEDICARE, MEDICAID, SELFPAY | END 2022-01-29 23:00 | disposition home or self-care (01) | LOC: SLEEP 04-07 01:25 | PROVIDERS: PCP Family Medicine; Visit Provider Anesthesiology Pain Medicine | DX: L60.3 Nail dystrophy (principal); B35.3 Tinea pedis; L60.0 Ingrowing nail | CPT/HCPCS: 11750; A6219; A6446 ==

== ENCOUNTER → 2022-02-16 09:30 | Outpatient (BNVA) | payer MEDICARE, MEDICAID, SELFPAY | PROVIDERS: PCP Family Medicine; Visit Provider Podiatrist Foot & Ankle Surgery | DX: L60.0 Ingrowing nail (principal); B35.3 Tinea pedis; L60.3 Nail dystrophy | CPT/HCPCS: 99213; 99214 ==

== ENCOUNTER → 2022-02-26 11:30 | Outpatient (BNVA) | payer MEDICARE, MEDICAID, SELFPAY | PROVIDERS: PCP Family Medicine; Visit Provider Podiatrist Foot & Ankle Surgery | DX: L60.0 Ingrowing nail (principal); L60.3 Nail dystrophy; B35.3 Tinea pedis | CPT/HCPCS: 99213 ==

== ENCOUNTER → 2022-02-28 15:37 | Outpatient (BNVA) | payer MEDICARE, MEDICAID, SELFPAY | PROVIDERS: PCP Family Medicine; Visit Provider Nurse Practitioner | DX: R50.9 Fever, unspecified (principal) | CPT/HCPCS: 87400; 87426 ==

== ENCOUNTER 2022-03-17 09:30 | Outpatient (CLI) | payer MEDICARE, MEDICAID, SELFPAY ==
--- NOTE | 2022-03-17 10:04 | XRR_ITS ---
PROCEDURE INFORMATION: Exam: XR Chest Exam date and time: 03/17/2022 10:19 AM Age: 66 years old Clinical indication: Prior surgery; Surgery type: Gb, hyster, bladder repair; Patient HX: Chronic cough, copd, laryngitis throat pain for 1 year; Additional info: Chronic laryngitis, pain in throat TECHNIQUE: Imaging protocol: Radiologic exam of the chest. Views: 2 views. PA and Lateral COMPARISON: CR XR chest 2V* [id number] 07/15/2021 12:21 PM FINDINGS: Lungs: There are normal lung volumes without interstitial or airspace opacities. Pleural spaces: There are no pleural effusions or pneumothorax. Heart/Mediastinum: The heart size is normal. The pulmonary vasculature is normal. There is a mildly tortuous thoracic aorta. The trachea is in the midline. Bones/joints: No acute abnormalities. Surgical clips are seen in the right upper quadrant of the abdomen, likely related to prior cholecystectomy. XR/XR chest 2V* [id number] IMPRESSION: No chest radiographic evidence of acute cardiopulmonary disease.
[2022-03-17 10:33] LABS: Blood Urea Nitrogen 12 mg/dL (8-23); Calcium 9.5 mg/dL (8.5-10.5); Carbon Dioxide 27 mmol/L (22-29); Chloride 102 mmol/L (98-107); Glomerular Filtration Rate 62.5 mL/min (90-130); Glucose 105 mg/dL (65-115); Osmolality Calculated 288 mOsm/kg (285-295); Sodium 139 mmol/L (136-145); Thyroid Stimulating Hormone 1.11 uIU/mL (0.27-4.20)
== END 2022-03-17 09:31 | disposition home or self-care (01) ==
LOC: LAB 09:40
PROVIDERS: PCP Family Medicine; Visit Provider Specialist
DX: R07.0 Pain in throat (principal); J37.0 Chronic laryngitis
CPT/HCPCS: 36415; 71046; 80048; 84439; 84443

== ENCOUNTER → 2022-03-20 13:12 | Outpatient (BNVA) | payer MEDICARE, MEDICAID, SELFPAY | PROVIDERS: PCP Family Medicine; Visit Provider Podiatrist Foot & Ankle Surgery | DX: L60.3 Nail dystrophy (principal); L60.0 Ingrowing nail; B35.3 Tinea pedis | CPT/HCPCS: 99213 ==

== ENCOUNTER 2022-03-24 12:22 | Outpatient (CLI) | payer MEDICARE, MEDICAID, SELFPAY ==
--- NOTE | 2022-03-24 13:00 | US_ITS ---
WS: [email or web address] ULTRASOUND-GUIDED RIGHT THYROID NODULE FNA HISTORY: Solitary thyroid nodule Procedure, risks, and complications were explained to the patient. Consent has been obtained. Prior imaging studies are reviewed. The skin is cleansed with ChloraPrep and anesthetized with 1% buffered lidocaine. FNA performed with 25 gauge needles. communications technologist is present to fix slides. US/US biopsy/FNA thyroid [id number] IMPRESSION: Uncomplicated FNA of a superior RIGHT thyroid nodule. Final pathology results p ending.
== END 2022-03-24 12:23 | disposition home or self-care (01) ==
LOC: RAD 12:23
PROVIDERS: PCP Family Medicine; Visit Provider Internal Medicine
DX: E04.1 Nontoxic single thyroid nodule (principal)
CPT/HCPCS: 10005; 88108

== ENCOUNTER 2022-04-02 08:47 | Outpatient (CLI) | payer MEDICARE, MEDICAID, SELFPAY | END 2022-04-02 08:48 | disposition home or self-care (01) | LOC: RT 08:53 | PROVIDERS: PCP Family Medicine; Visit Provider Specialist | DX: J37.0 Chronic laryngitis (principal); R07.0 Pain in throat | CPT/HCPCS: 94060; 94726; 94729; J7611 ==

== ENCOUNTER 2022-05-08 09:00 | Outpatient (CLI) | payer MEDICARE, MEDICAID, SELFPAY ==
--- NOTE | 2022-05-08 09:09 | FL_ITS ---
WS: [email or web address] FL barium swallow [id number] REASON FOR EXAM: CHRONIC LARYNGITIS/PAIN IN THROAT FLUOROSCOPY TIME: 1min [id number] # OF SPOT FILMS: 8 FINDINGS: Oral ingestion of barium was performed in the upright and prone GARCÍA positions. Fluoroscopy and multip le films were used to evaluate the GI tract from the oropharynx to the stomach. The upper esophagus was unremarkable. The mid and distal esophagus demonstrated fairly consistent moderate tertiary contractions with reten tion of barium in a mildly dilated esophagus proximal to the tertiary contractions. Additional swallo wing cleared the esophagus. There was a small sliding hiatal hernia with no significant narrowing of the distal esophagus. No sig nificant reflux was identified. FL/FL barium swallow [id number] IMPRESSION: Esophageal dysmotility as above with no other significant finding.
== END 2022-05-08 09:01 | disposition home or self-care (01) ==
LOC: RAD 09:02
PROVIDERS: PCP Family Medicine; Visit Provider Specialist
DX: J37.0 Chronic laryngitis (principal); R07.0 Pain in throat
CPT/HCPCS: 74220

== ENCOUNTER → 2022-06-18 14:40 | Outpatient (BNVA) | payer MEDICARE, MEDICAID, SELFPAY | PROVIDERS: PCP Family Medicine; Visit Provider Internal Medicine | DX: I10 Essential (primary) hypertension (principal); E78.2 Mixed hyperlipidemia; I73.9 Peripheral vascular disease, unspecified; R07.9 Chest pain, unspecified; F17.210 Nicotine dependence, cigarettes, uncomplicated | CPT/HCPCS: 99214 ==

== ENCOUNTER 2022-07-03 12:38 | Outpatient (CLI) | payer MEDICARE, MEDICAID, SELFPAY ==
--- NOTE | 2022-07-03 12:48 | MM_ITS ---
WS: [email or web address] BILATERAL 3D TOMOSYNTHESIS DIGITAL DIAGNOSTIC MAMMOGRAPHY WITH CAD CLINICAL INFORMATION: RT. BREAST MASS HISTORY: RIGHT breast lump. LEFT breast soreness. COMPARISON: Outside films have been requested. No films currently available. TECHNIQUE: Bilateral CC, MLO, and ML views. FINDINGS: Movement of the palpable marker RIGHT breast between the CC/ML and MLO imaging. Recommend R IGHT diagnostic mammography with placement of palpable marker. Scattered fibroglandular densities bilaterally. Palpable marker RIGHT breast. There is a 1.6 x 1.4 cm ovoid lobulated lesion lower outer RIGHT breast near the 7- 8:00 position. Re commend ultrasound RIGHT breast for further evaluation of the lobulated lesion. On some views the pal pable marker overlies this lesion Dense asymmetric tissue upper outer LEFT breast.A few incidental punctate calcifications. Punctate cl ustered calcifications LEFT breast. Vascular calcification. MM/[place] [id number] IMPRESSION: BI-RADS: 0-Incomplete: Need additional imaging evaluation FOLLOW UP: Need Additional Imaging Recommend RIGHT breast diagnostic mammography with palpable marker placement. Also, following mammography, recommend Ultrasound of the palpable area RIGHT br east as well as the above-described 1.6 x 1.4 cm ovoid lobulated lesion .
== END 2022-07-03 12:39 | disposition home or self-care (01) ==
LOC: RAD 12:38
PROVIDERS: PCP Family Medicine; Visit Provider Family Medicine
DX: N63.13 Unspecified lump in the right breast, lower outer quadrant (principal); R92.1 Mammographic calcification found on diagnostic imaging of breast
CPT/HCPCS: 77062; G0279

== ENCOUNTER → 2022-07-22 10:11 | Outpatient (BNVA) | payer MEDICARE, MEDICAID, SELFPAY | PROVIDERS: PCP Family Medicine; Visit Provider Podiatrist Foot & Ankle Surgery | DX: L60.3 Nail dystrophy (principal); L60.0 Ingrowing nail; B35.3 Tinea pedis | CPT/HCPCS: 99213 ==

== ENCOUNTER 2022-08-21 13:44 | Outpatient (CLI) | payer MEDICARE, MEDICAID, SELFPAY ==
--- NOTE | 2022-08-21 13:53 | MM_ITS ---
WS: [email or web address] RIGHT 3D TOMOSYNTHESIS DIGITAL MAMMOGRAPHY WITH CAD CLINICAL INFORMATION: ABNORMAL MAMMO HISTORY: Palpable abnormality RIGHT breast. Additional views. COMPARISON: July 03, 2022 TECHNIQUE: 3 views of the right breast were obtained. FINDINGS: Scattered fibroglandular densities of the right breast. Palpable marker central RIGHT breast. No unde rlying parenchymal abnormalities. Ultrasound is pending. Again seen is the lobulated 14 mm lesion lower outer RIGHT breast near the 7-8:00 position. This is u nchanged. Ultrasound is pending. ULTRASOUND BREAST RIGHT TECHNIQUE: Ultrasound right breast focused area of concern. CLINICAL INFORMATION: ABNORMAL MAMMO FINDINGS: Ultrasound RIGHT breast at the 7:00 position 2 cm from the nipple demonstrates a solid appearing lobu lated lesion corresponding to the mammographic findings. This measures approximately 1.9 x 1.3 x 0.5 CM. This is indeterminate and recommend further evaluation with ultrasound-guided biopsy. No suspicious parenchymal abnormalities in the area of palpable concern at the 12:00 position. Tiny i ncidental cyst in this area measuring 3 mm. Additional tiny cyst at the 6:00 position measuring 4 mm with a tiny septation. These cysts have a benign appearance. MM/[place] [id number] IMPRESSION: BI-RADS: 4-Suspicious Finding-Biopsy Should Be Considered FOLLOW UP: US Guided Biopsy Recommended Recommend ultrasound-guided biopsy of the solid RIGHT breast lesion at the 7:00 position.
== END 2022-08-21 13:45 | disposition home or self-care (01) ==
LOC: RAD 13:47
PROVIDERS: PCP Family Medicine; Visit Provider Family Medicine
DX: R92.8 Other abnormal and inconclusive findings on diagnostic imaging of breast (principal); N63.13 Unspecified lump in the right breast, lower outer quadrant
CPT/HCPCS: 76642

== ENCOUNTER 2022-09-11 11:50 | Outpatient (CLI) | payer MEDICARE, MEDICAID, SELFPAY ==
--- NOTE | 2022-09-11 11:59 | US_ITS ---
WS: [email or web address] ULTRASOUND-GUIDED RIGHT BREAST BIOPSY HISTORY: UNSPECIFIED LUMP IN RT BREAST COMPARISON: 08/21/2022 Procedure, risks and complications are explained to the patient. Medications are reviewed. Consent is obtained. The mass in the RIGHT breast is localized with ultrasound. Mass localizes to 7:00, 2 cm from the nipp le. Skin is cleansed with ChloraPrep and anesthetized with 1% buffered lidocaine. Small dermatome is made. Under sterile conditions mass is biopsied with a 14-gauge Achieve needle. Multiple core biopsie s are performed. Material placed in formalin and sent to pathology for review. No complications encou ntered. Breast tissue marker ([facility] ultrasound enhanced ribbon): Single. Clip is at the very edge of the mass or adjacent to the mass. Patient left the radiology suite with no complications. Patient is instructed to return to [facility] concerns. US/[place] [id number] IMPRESSION: 1. Uncomplicated core needle biopsy RIGHT breast mass at 7:00. PATHOLOGY: Benign breast tissue with stromal sclerosis and fibroadenomatoid kristian nges. No malignancy or atypia. RECOMMENDATION: Diagnostic RIGHT mammogram and possible ultrasound 6 months.
== END 2022-09-11 11:51 | disposition home or self-care (01) ==
LOC: RAD 11:54
PROVIDERS: PCP Family Medicine; Visit Provider Family Medicine
DX: N63.13 Unspecified lump in the right breast, lower outer quadrant (principal)
CPT/HCPCS: 19083; 88305

== ENCOUNTER → 2022-09-22 15:17 | Outpatient (BNVA) | payer MEDICARE, MEDICAID, SELFPAY | PROVIDERS: PCP Family Medicine; Visit Provider Nurse Practitioner Family | DX: R07.9 Chest pain, unspecified (principal); F17.210 Nicotine dependence, cigarettes, uncomplicated | CPT/HCPCS: 99214 ==

== ENCOUNTER → 2022-09-28 14:12 | Outpatient (BNVA) | payer MEDICARE, MEDICAID, SELFPAY | PROVIDERS: PCP Family Medicine; Visit Provider Family Medicine | DX: I10 Essential (primary) hypertension (principal); E78.5 Hyperlipidemia, unspecified; E11.9 Type 2 diabetes mellitus without complications | CPT/HCPCS: 80053; 80061; 83036 ==

== ENCOUNTER → 2022-10-01 14:38 | Outpatient (BNVA) | payer MEDICARE, MEDICAID, SELFPAY | PROVIDERS: PCP Family Medicine; Visit Provider Family Medicine | DX: E11.9 Type 2 diabetes mellitus without complications (principal); E78.5 Hyperlipidemia, unspecified; I10 Essential (primary) hypertension | CPT/HCPCS: 83036 ==

== ENCOUNTER 2022-10-05 06:43 | Outpatient (CLI) | payer MEDICARE, MEDICAID, SELFPAY ==
--- NOTE | 2022-10-05 | ECG_ITS ---
[facility] Test Date: 2022-10-05 Pat Name: Génesis Titus Department: Room: Gender: Female Per Diem Nurse: : 1955 Requested By: Sharon Bowden Order Number: [id number] Dunn MD: Yariel Payan M.D. Interpretive Statements NAME OF STUDY: LEXISCAN SESTAMIBI STRESS TEST INDICATION: [NECK AND CHEST PAIN ON EXERTION] Procedure: At the baseline, the blood pressure was 140/83 mmHg with a heart rate of 79 bpm. The electrocardiogram showed normal sinus rhythm, normal axis with normal ST and T's. The Lexiscan was infused over a period of 20 seconds. A total of 0.4 mg of Lexiscan was infused. The stress phase was continued for a total of 5 minutes. Heart rate was at the end of stress phase was 91 bpm and a blood pressure of 141/80 mmHg. The EKG at the peak infusion revealed normal sinus rhythm with no significant ST-T wave changes. Sestamibi was injected 20 seconds after the Lexiscan infusion. Blood pressure at the end of recovery phase was 132/80 mmHg with a heart rate of 92 bpm. Conclusion: 1. Normal EKG response to Lexiscan infusion 2. No Lexiscan induced chest pain or cardiac arrhythmia. 3. Normal blood pressure and heart rate response. 4. Sestamibi/sestamibi perfusion scan pending; see separate report. Electronically Signed On 10-24-2022 20:51:16 CDT by Yariel Payan M.D. [email or web address]
[2022-10-05 06:55] VITALS: BMI 28.4
--- NOTE | 2022-10-05 06:57 | NMCV_ITS ---
NM deysi perf SPECT r/s* [id number] Génesis Titus Age: 67 Gender: F : 1955 Exam Date: 10/05/2022 08:05 Ordering Phys: Sharon Bowden Technologist: KENYON Marcos Exam Location: [facility] Indications: CHEST PAIN STRESS TEST Please see separate stress test report in [facility] for full findings IMAGE PROTOCOL Rest/Stress 1 Lexiscan Day Radiopharmaceutical Dose (mCi) Administration Site Administered by Rest: Tc-99m 10.8 IV KENYON Swift Sestamibi Stress:Tc-99m 32.6 IV KENYON Swift Sestamibi Rest: 05-Oct-2022 60 Discovery 630 Stress: 05-Oct-2022 30 Discovery 630 0.4mg Lexiscan. Images obtained in supine and prone position. SPECT RESULTS Technical Quality: Excellent Raw Data Analysis: Normal Image Corrections: No attenuation or motion correction applied Summed Stress Score: 2 Summed Rest Score: 1 Summed Difference Score: 2 PERFUSION FINDINGS SPECT images demonstrate homogeneous tracer distribution throughout the myocardium. FUNCTIONAL RESULTS (calculated via Gated SPECT) Stress Image LV EF (%): 85 Stress EDV (mL):66 TID: 0.81 Stress ESV (mL):10 FUNCTIONAL FINDINGS: There is normal left ventricular systolic function. IMPRESSIONS 1. Normal myocardial perfusion imaging with no evidence of ischemia 2. LV systolic function is normal Yariel Payan MD (Electronically Signed) Final Date: 07 Oct 2022 16:45 S
--- NOTE | 2022-10-05 09:23 | SUR.PREOP ---
INTRA STRESS NOTE Patient unable to tolerate the physical demand of the treadmill. Maximal effort made but only reached 62%. Protocol aborted and changed to lexiscan per original order.
[2022-10-05] MEDS: regadenoson 0.4 Mg/5 ml Syringe IVP (09:31)
[2022-10-05 09:43] VITALS: BP 132/80; PULSE 82
== END 2022-10-05 06:44 | disposition home or self-care (01) ==
LOC: CDL 06:46
PROVIDERS: PCP Family Medicine; Visit Provider Nurse Practitioner Family
DX: R07.89 Other chest pain (principal); M54.2 Cervicalgia
CPT/HCPCS: 36415; 78452; 93017; 96374; A9500; J2785

== ENCOUNTER → 2022-12-21 13:42 | Outpatient (BNVA) | payer MEDICARE, MEDICAID, SELFPAY | PROVIDERS: PCP Family Medicine; Visit Provider Family Medicine | DX: E11.9 Type 2 diabetes mellitus without complications (principal); E89.0 Postprocedural hypothyroidism; L98.9 Disorder of the skin and subcutaneous tissue, unspecified | CPT/HCPCS: 83036; 84443; 88304 ==

== ENCOUNTER → 2022-12-28 14:35 | Outpatient (BNVA) | payer MEDICARE, MEDICAID, SELFPAY | PROVIDERS: PCP Family Medicine; Visit Provider Podiatrist Foot & Ankle Surgery | DX: L60.3 Nail dystrophy (principal); E11.42 Type 2 diabetes mellitus with diabetic polyneuropathy | CPT/HCPCS: 99213 ==

== ENCOUNTER → 2023-01-07 15:27 | Outpatient (BNVA) | payer MEDICARE, MEDICAID, SELFPAY | PROVIDERS: PCP Family Medicine; Visit Provider Podiatrist Foot & Ankle Surgery | DX: L60.3 Nail dystrophy (principal); E11.42 Type 2 diabetes mellitus with diabetic polyneuropathy | CPT/HCPCS: 11750 ==

== ENCOUNTER → 2023-01-21 11:22 | Outpatient (BNVA) | payer MEDICARE, MEDICAID, SELFPAY | PROVIDERS: PCP Family Medicine; Visit Provider Podiatrist Foot & Ankle Surgery | DX: L60.3 Nail dystrophy (principal); E11.42 Type 2 diabetes mellitus with diabetic polyneuropathy | CPT/HCPCS: 99213 ==

== ENCOUNTER 2023-03-15 00:20 | Observation (INO) | payer MEDICARE, MEDICAID, SELFPAY ==
[2023-03-14 23:37] VITALS: BMI 24.3
--- OUTSIDE RECORDS SUMMARY | 2023-03-14 23:37 | XMS_ITS | Patient Health Record ---
Author Name Unknown Organization [facility] Address [address] [place], [place] [id number] Care Team Providers Care Fruit Farmer Name Role Phone Jack CARNEY, Leila Primary Care Provider Unava julio Martino MD, Brent Unavailable [phone] Jb LOG SORTER, Anjali Unavailable Unavailable Nikolay LOG SORTER, Malathi Unavailable [phone] ALLERGIES Allergen (clinical drug ingredient) Drug/Non Drug Allergy documented on EMR Reaction Allergy Type Onset Date Status sulfa (uncoded) Unknown Allergy Acti ve fluoxetine PROzac homicical thoughts Drug Allergy Active naproxen hives Drug Allergy Active RESULTS Component Value Reference Range Notes Urine tox screen / MS if ind icated Reviewed date:02/23/2023 02:53:48 PM Interpretation:Consistent Performing Lab: Notes/Report: Consistent Urine tox screen / MS if ind icated Reviewed date:06/24/2022 01:03:20 PM Interpretation: Performing Lab: Notes/Report: REASON FOR REFERRAL No Information MEDICATIONS Medication SIG (Take, Route, Frequency, Duration) Notes Start Date End Date Status EPINEPHrine 0.3 mg as directed intramuscularly once Active valsartan 320 mg 1 tab orally once a day Active Farxiga 5 mg 1 tab(s) orally once a day for 30 day(s) Active Gentle Laxative 5 mg 1 tab(s) orally once a day Active acetaminophen-hydrocodone 325 mg-5 mg 1/2 - 1 tab orally Q4-6H prn pain (max 2/day; hold within 4H of planned sleep) Active ibuprofen 800 mg 1 tab po orally Q8H prn pain; take with food Active levothyroxine 100 mcg (0.1 mg) 1 tab orally once a day Acti ve Mucinex 600 mg 1 tab orally every 1 2 hours, as needed Active nitroglycerin 0.4 mg 1 tab sublingually as needed / directed Active gabapentin 300 mg 1 cap orally Q12H fo r 30 day(s) Active albuterol 90 mcg/inh 2 puffs inhaled linda ry 4 hours, as needed Active cyclobenzaprine 10 mg 1 tab orally Q12H prn spasm for 30 day(s) Active albuterol 2.5 mg/3 mL (0.083%) 3 mL by nebulizer 3 times a day Active buPROPion 150 mg/24 hours 1 tab orally e very 24 hours Active CoQ10 100 mg 1 cap orally once a day Active Ryde-3 Active Ozempic (0.25 mg or 0.5 mg dose) Active doxycycline hyclate 100 mg 1 cap orally 2 times a day Active rosuvastatin 40 mg 1 tab orally once a day Active SOCIAL HISTORY Tobacco Use: Social History Observation Description Date Details (start date - stop date) Current Smoker NA - NA Sex Assigned At : Social History Observation Description Sex Assigned At Unknown alcohol Question Answer Notes Did you have a drink containing alcohol in the p ast year? No Points 0 Interpretation Negative Tobacco use: Question Answer Notes : current smoker Are you interested in quitting? Ready to quit How many cigarettes a day do you smoke? 31 or mo re How often do you smoke cigarettes? every day How soon after you wake up do you smoke your fir st cigarette? within 5 min When did you start smoking? 1971 PROBLEMS Problem Type ICD Code Onset Dates Problem Status W/U Status Risk SNOMED Code Notes Problem custodial (current) use of opiate analgesic (Z79.891) Active confirmed High risk drug monitoring status (495468318) Problem Obstructive sleep apnea (adult) (pediatric) (G47.33) Active confirmed Obstructive sle ep apnea syndrome (33891985) Problem Other chronic pain (G89.29) Active confirmed Chronic pain (63480783) Problem Spondylolisthe sis, cervical region (M43.12) Active confirmed Acquired spondylolisthesis (252027225) Problem Spondylosis without myelopathy or radiculopathy, cervical region (M47.812) Active confirmed Cervical spondy losis without myelopathy (754649057) Problem Spinal stenosis, cervical region (M48.02) Active confirmed Spinal stenosis in cervical region (18115465) Problem Cervicalgia (M54.2) Active confirmed Cervicalgia (18788306) Problem Other usp (current) drug therapy (Z79.899) Active confirmed Long-term curre nt use of drug therapy (780788996) Problem Myalgia of auxiliary muscles, head and neck (M79.12) Active confirmed Myalgia (01742813) Problem Headache, unspecified (R51.9) Active confirmed Headache (28971684) Encounters Encounter Location Date Provider Diagnosis [facility] [address] [place], [place] [id number] 04/02/2022 Brent Martino Cervicalgia M54.2 ; Spinal stenosis, cervical region M48.02 ; Myalgia of auxiliary muscles, head and neck M79.12 ; Headache, unspecified R51.9 ; Spondylosis without myelopathy or radiculopathy, cervical region M47.812 ; Spondylolisthesis, cervical region M43.12 ; Obstructive sleep apnea (adult) (pediatric) G47.33 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 Z79.891 [facility] [address] [place] [id number] 04/08/2022 Brent Martino [facility], [address] [id number] 05/05/2022 Brent Martino Cervicalgia M54.2 ; Myalgia of auxiliary muscles, head and neck M79.12 ; Headache, unspecified R51.9 ; Spinal stenosis, cervical region M48.02 ; Spondylosis without myelopathy or radiculopathy, cervical region M47.812 ; Spondylolisthesis, cervical region M43.12 ; Obstructive sleep apnea (adult) (pediatric) G47.33 and custodial (current) use of opiate analgesic Z79.891 [facility] [address] [place], [place] [id number] 06/24/2022 Brent Martino Myalgia of auxiliary muscles, head and neck M79.12 ; Headache, unspecified R51.9 ; Cervicalgia M54.2 ; Spinal stenosis, cervical region M48.02 ; Spondylosis without myelopathy or radiculopathy, cervical region M47.812 ; Spondylolisthesis, cervical region M43.12 ; Obstructive sleep apnea (adult) (pediatric) G47.33 and custodial (current) use of opiate analgesic Z79.[address] [facility] [address] [id number] 10/20/2022 Brent Martino Cervicalgia M54.2 ; Other chronic pain G89.29 ; Myalgia of auxiliary muscles, head and neck M79.12 and Headache, unspecified R51.[address] [id number] 01/12/2023 Brent Martino Myalgia of auxiliary muscles, head and neck M79.12 ; Headache, unspecified R51.9 ; Other chronic pain G89.29 and Cervicalgia M54.[address] [facility] [address] [id number] 02/23/2023 Malathi Greens Other chronic pain G89.29 ; Cervicalgia M54.2 ; Myalgia of auxiliary muscles, head and neck M79.12 and custodial (current) use of opiate analgesic Z79.891 ASSESSMENTS Encounter Date Diagnosis Assessment Notes Treatment Notes Treatment Clinical Notes 04/02/2022 Spinal stenosis, cervical region (ICD-10 - M48.02) Had previously discussed MART with patient. Patient was not interested in this treatment option. If patient were to desire additional fluoroscope - guided minimally invasive interventional spine treatment, would recommend patient return to [facility] pain clinic or other facility offering the treatment (patient with history of such treatment via [facility] pain clinic). Could consider surgical referral if needed / desired by patient: patient has defered on this treatment option. Would be happy to initiate a referral if desired by patient 04/02/2022 Cervicalgia (ICD-10 - M54.2) Do not anticipate offering patient any fluoroscope - guided minimally invasive interventional spine treatment via this facility. Patient had a prior experience with this treatment via another provider without success. On-going low dose opioid trial: good benefit with minimal use thus far. 05/05/2022 Cervicalgia (ICD-10 - M54.2) Do not anticipate offering patient any fluoroscope - guided minimally invasive interventional spine treatment via this facility (a prior scope of practice change by this provider). Patient has reported of a prior experience with this treatment via another provider without success. On-going low dose opioid trial: good benefit thus far. 05/05/2022 Myalgia of auxiliary muscles, head and neck (ICD-10 - M79.12) Prior TPIs with history of benefit in regards to headache syndrome, below, as well as the upper neck pain. The lower muscle groups have not seemed to benefit much from the prior TPIs 06/24/2022 Myalgia of auxiliary muscles, head and neck (ICD-10 - M79.12) Prior TPIs with history of benefit. Also, patient has reported benefit in regards to headache syndrome, below, as well as the improvements in upper neck pain. The lower muscle groups did not seem to benefit much from prior TPIs. Plan TPIs at today's visit 06/24/2022 Headache, unspecified (ICD-10 - R51.9) Initial TPIs at 12/23/21 visit targeting bilateral upper neck with near immediate headache resolution. Maintained resolution of headaches from the initial TPIs noted for three weeks as per prior patient report. The headaches then returned. The same TPIs again performed at 01/27/22 visit, resulting in maintained headache resolution for ~ 3 1/2 months per patient report 10/20/2022 Other chronic pain (ICD-10 - G89.29) Patient reports significant improvement in her pain since last visit. Minimal opioid use noted. Plan to renew gabapentin 10/20/2022 Cervicalgia (ICD-10 - M54.2) 01/12/2023 Myalgia of auxiliary muscles, head and neck (ICD-10 - M79.12) Patient reports significant symptom improvement following prior TPIs. The benefits have now waned. Plan TPIs at today's visit 01/12/2023 Headache, unspecified (ICD-10 - R51.9) Patient reported significant improvement in headache symptoms following TPIs at a prior visit - 4 months of headache resolution was noted. The headaches have started again 02/23/2023 Other chronic pain (ICD-10 - G89.29) Patient reports minimal use of opioid; symptom improvement noted with gabapentin. Plan to continue 02/23/2023 Cervicalgia (ICD-10 - M54.2) Chronic cervical spine pain 02/23/2023 Myalgia of auxiliary muscles, head and neck (ICD-10 - M79.12) Patient reports significant symptom improvement following prior TPIs. Patient reports benefit with use of cyclobenzaprine for her spasms. Plan to continue 06/24/2022 Cervicalgia (ICD-10 - M54.2) Chronic axial cervical spine pain. Prior conservative treatment by patient as noted, below. Prior minimally invasive interventional spine treatment via another provider with history of no efficacy as noted, below. Prior TPIs by this provider with history of benefit for upper neck pain and headaches. Do not anticipate offering patient any fluoroscope - guided minimally invasive interventional spine treatment via this facility (prior scope of practice change by this provider). Would look to refer patient if patient were to desired additional such treatment. Prior neurosurgical evaluation has been reported by patient, however, it was just for low back pain at that time. Could consider another surgical referral, for cervical spine pain, as needed / desired by patient. Oral opioid medication use with history of benefit. Plan to continue medication management 01/12/2023 Other chronic pain (ICD-10 - G89.29) Patient reports increased neck pain. Minimal opioid use noted. Patient does not need anymore gabapentin at today's visit because patient found some prior bottles of the drug as prescribed via another provider. She reports that she has been taking gabapentin twice daily 10/20/2022 Myalgia of auxiliary muscles, head and neck (ICD-10 - M79.12) Patient reports significant symptom improvement following TPIs at last office visit 05/05/2022 Headache, unspecified (ICD-10 - R51.9) Initial TPIs at 12/23/21 visit targeting bilateral upper neck with near immediate headache resolution. Maintained resolution of headaches from the initial TPIs noted for three weeks as per prior patient report. The headaches then returned. The same TPIs again performed at 01/27/22 visit, resulting in maintained headache resolution as of 05/05/22 04/02/2022 Myalgia of auxiliary muscles, head and neck (ICD-10 - M79.12) TPIs with history of benefit in regards to headache syndrome, below, as well as neck pain. Varying lengths of benefits (versus no benefit) have been noted post prior TPI sessions 04/02/2022 Headache, unspecified (ICD-10 - R51.9) Initial TPIs at 12/23/21 visit targeting bilateral upper neck with near immediate headache resolution. Maintained resolution of headaches from the initial TPIs noted for three weeks as per prior patient report. The headaches then returned. The same TPIs again performed at 01/27/22 visit, resulting in maintained headache resolution as of 02/19/22 session 05/05/2022 Spinal stenosis, cervical region (ICD-10 - M48.02) Had previously discussed MART with patient. Patient was not interested in this treatment option. If patient were to desire additional fluoroscope - guided minimally invasive interventional spine treatment, would recommend patient return to [facility] pain clinic or other facility offering the treatment (patient with history of such treatment via [facility] pain clinic). Could consider surgical referral if needed / desired by patient: patient has defered on this treatment option. Would be happy to initiate a referral if desired by patient 10/20/2022 Headache, unspecified (ICD-10 - R51.9) Patient reports significant improvement in headache following TPIs at last office visit 06/24/2022 Spinal stenosis, cervical region (ICD-10 - M48.02) Had previously discussed MART with patient. Patient was not interested in this treatment option. If patient were to desire additional fluoroscope - guided minimally invasive interventional spine treatment, would recommend patient return to [facility] pain clinic or other facility offering the treatment (patient with history of such treatment via [facility] pain clinic). Could consider surgical referral if needed / desired by patient: patient has defered on this treatment option. Would be happy to initiate a referral if desired by patient 01/12/2023 Cervicalgia (ICD-10 - M54.2) 02/23/2023 custodial (current) use of opiate analgesic (ICD-10 - Z79.891) 2022 opioid (OUD) risk tool score = 3. This places the patient in the high risk category, warranting more frequent screening. Plan urine toxicology screen today to monitor for presence of any unprescribed or illicit drugs as well as prescribed hydrocodone 06/24/2022 Spondylosis without myelopathy or radiculopathy, cervical region (ICD-10 - M47.812) Patient has reported of cervical blocks via another provider. No efficacy was reported by patient following the RFA procedure 05/05/2022 Spondylosis without myelopathy or radiculopathy, cervical region (ICD-10 - M47.812) Patient has reported of cervical blocks via another provider. No efficacy was reported by patient 04/02/2022 Spondylosis without myelopathy or radiculopathy, cervical region (ICD-10 - M47.812) Patient has reported of cervical blocks via another provider. No efficacy was reported by patient 04/02/2022 Spondylolisthesis, cervical region (ICD-10 - M43.12) Minimal (0.2 cm) subluxation of C4 on C5 on flexion as per 12/17/21 flexion - extension radiology report 05/05/2022 Spondylolisthesis, cervical region (ICD-10 - M43.12) Minimal (0.2 cm) subluxation of C4 on C5 on flexion as per 12/17/21 flexion - extension radiology report 06/24/2022 Spondylolisthesis, cervical region (ICD-10 - M43.12) Minimal (0.2 cm) subluxation of C4 on C5 on flexion as per 12/17/21 flexion - extension radiology report 06/24/2022 Obstructive sleep apnea (adult) (pediatric) (ICD-10 - G47.33) Prior [facility] sleep study report has been reviewed. The report revealed severe REM related sleep apnea. Patient with history of inability to tolerate CPAP device use. Had recommended patient be evaluated for treatment by an ENT doctor (as patient may have been a candidate for the Inspire device). Referral to Dr. Pichardo completed: patient reported that her sleep study numbers were a couple of points off in order to be eligible for the Inspire device. Plan for an updated sleep study was denied by patient's insurer. Peer to peer review of the denial was completed on 01/29/22 at 1340 and the insurer's phlebotomy services representative was unable to kristyn the request for a repeat sleep study. Plan to restrict opioid usage in relation to sleep: patient has verbalized understanding to hold short-acting opioids within four hours of planned sleep. Patient has been counseled on the risks of sleep apnea, with or without opioid and / or other sedative usage, and the patient verbalized understanding and acceptance of the increased risk (worsened sleep apnea, respiratory depression, ) with opioid and / or sedative substance usage. Patient has been counseled that synergistic risk occurs with concomitant opioid and sedative usage. Patient has been counseled to hold opioid and / or sedative substances prior to planned sleep or dangerous activities and patient verbalized understanding that noncompliance would be at patient's increased risk 05/05/2022 Obstructive sleep apnea (adult) (pediatric) (ICD-10 - G47.33) Prior [facility] sleep study report has been reviewed. The report revealed severe REM related sleep apnea. Patient with history of inability to tolerate CPAP device use. Had recommended patient be evaluated for treatment by an ENT doctor (as patient may have been a candidate for the Inspire device). Referral to Dr. Pichardo completed: patient reported that her sleep study numbers were a couple of points off in order to be eligible for the Inspire device. Plan for an updated sleep study was denied by patient's insurer. Peer to peer review of the denial was completed on 01/29/22 at 1340 and the insurer's phlebotomy services representative was unable to kristyn the request for a repeat sleep study. Plan to restrict opioid usage in relation to sleep: patient has verbalized understanding to hold short-acting opioids within four hours of planned sleep. Patient has been counseled on the risks of sleep apnea, with or without opioid and / or other sedative usage, and the patient verbalized understanding and acceptance of the increased risk (worsened sleep apnea, respiratory depression, ) with opioid and / or sedative substance usage. Patient has been counseled that synergistic risk occurs with concomitant opioid and sedative usage. Patient has been counseled to hold opioid and / or sedative substances prior to planned sleep or dangerous activities and patient verbalized understanding that noncompliance would be at patient's increased risk 04/02/2022 Obstructive sleep apnea (adult) (pediatric) (ICD-10 - G47.33) Prior [facility] sleep study report has been reviewed. The report revealed severe REM related sleep apnea. Patient with history of inability to tolerate CPAP device use. Had recommended patient be evaluated for treatment by an ENT doctor (as patient may have been a candidate for the Inspire device). Referral to Dr. Pichardo completed: patient reported that her sleep study numbers were a couple of points off in order to be eligible for the Inspire device. Plan for an updated sleep study was denied by patient's insurer. Peer to peer review of the denial was completed on 01/29/22 at 1340 and the insurer's phlebotomy services representative was unable to kristyn the request for a repeat sleep study. Plan to restrict opioid usage in relation to sleep: patient has verbalized understanding to hold short-acting opioids within four hours of planned sleep. Patient has been counseled on the risks of sleep apnea, with or without opioid and / or other sedative usage, and the patient verbalized understanding and acceptance of the increased risk (worsened sleep apnea, respiratory depression, ) with opioid and / or sedative substance usage. Patient has been counseled that synergistic risk occurs with concomitant opioid and sedative usage. Patient has been counseled to hold opioid and / or sedative substances prior to planned sleep or dangerous activities and patient verbalized understanding that noncompliance would be at patient's increased risk 04/02/2022 custodial (current) use of opiate analgesic (ICD-10 - Z79.891) Patient has a total daily MED of <10. This places the patient in the [facility] low risk category for total daily opioid usage (not to be confused with the separate potential significant risk in regards to diagnosed sleep apnea, above). Patient has received the Opioid Analgesic REMS Patient Counseling Guide. Patient has had opportunity to read the Guide and ask questions pertaining to the Guide. Patient has been advised on 12/23/21 that due to the [employer] concerns and actions, any suspected patient misuse, abuse, or diversion of controlled substances (i.e. opioids/narcotics/ramo n killers) WILL result in dissolution of treatment from this clinic. Patients adhering to the concepts contained within the patient's Treatment Agreement will be protected from such termination of care. Patient was given a copy of the Treatment Agreement, signed by patient on 12/16/21. Patient signed an opioid consent form on 12/23/21. Patient has refused offer of a Narcan nasal spray prescription. Opioid Risk Tool score 3 - low risk 05/05/2022 custodial (current) use of opiate analgesic (ICD-10 - Z79.891) Patient has a total daily MED of <10. This places the patient in the [facility] low risk category for total daily opioid usage (not to be confused with the separate potential significant risk in regards to diagnosed sleep apnea, above). Patient has received the Opioid Analgesic REMS Patient Counseling Guide. Patient has had opportunity to read the Guide and ask questions pertaining to the Guide. Patient has been advised on 12/23/21 that due to the [employer] concerns and actions, any suspected patient misuse, abuse, or diversion of controlled substances (i.e. opioids/narcotics/ramo n killers) WILL result in dissolution of treatment from this clinic. Patients adhering to the concepts contained within the patient's Treatment Agreement will be protected from such termination of care. Patient was given a copy of the Treatment Agreement, signed by patient on 12/16/21. Patient signed an opioid consent form on 12/23/21. Patient has refused offer of a Narcan nasal spray prescription. Opioid Risk Tool score 3 - low risk 06/24/2022 custodial (current) use of opiate analgesic (ICD-10 - Z79.891) Patient has a total daily MED of <10. This places the patient in the [facility] low risk category for total daily opioid usage (not to be confused with the separate potential significant risk in regards to diagnosed sleep apnea, above). Patient has received the Opioid Analgesic REMS Patient Counseling Guide. Patient has had opportunity to read the Guide and ask questions pertaining to the Guide. Patient has been advised on 12/23/21 that due to the [facility] Government concerns and actions, any suspected patient misuse, abuse, or diversion of controlled substances (i.e. opioids/narcotics/ramo n killers) WILL result in dissolution of treatment from this clinic. Patients adhering to the concepts contained within the patient's Treatment Agreement will be protected from such termination of care. Patient was given a copy of the Treatment Agreement, signed by patient on 12/16/21. Patient signed an opioid consent form on 12/23/21. Patient has refused offer of a Narcan nasal spray prescription. Opioid Risk Tool score 3 - low risk. Urine Tox screen today; random screens per protocol 04/02/2022 Other 10/20/2022 Other 02/23/2023 Other 06/24/2022 Other Have authorized patient to take 1 gabapentin every A.M. and 2 at bedtime in hope of improving sleep (and patient often forgets to take mid - day medications) 05/05/2022 Other 01/12/2023 Other Consider decrea se of gabapentin to twice daily dosing at next prescription visit (patient reports that twice a day is the most doses she can remember to take in a day) PLAN OF TREATMENT Next Appt Details Provider Name:Brent Felix son, 08/18/2023 01:10:00 PM, [address], [place], [id number], Insurance Providers Payer Name Payer Address Payer Phone Subscriber Number Group Number Insured Name Patient Relationship to Insured Coverage Start Date Coverage End Date [employer] [address] [place] [address] [id number] 0 Tacho JodieGénesis Self - patient is the insured [place] [address] [place] [address] [id number] Jodie Titusley Self - patient is the insured MEDICAL (GENERAL) HISTORY Medical History History ICD Code Chronic pain Neck pain Cervical spondylosis and spinal stenosis Headaches Low back pain Lyme disease Hypothyroidism Vitamin D deficiency Hyperlipidemia Mixed anxiety and depressive disorder Tobacco dependence syndrome Restless legs Hypertensive disorder Chronic obstructive pulmonary disease Prediabetes Fatty liver Coronary artery diease (history of NTG R x and angioplasty) Tobacco use, COPD Obesity, mild Sleep apnea ADHD Surgical History Surgery Date(Month/Year) Dilation and curettage Oophorectomy Cholecystectomy, performed in [facility] [place], 1970 Bladder procedure, 1990 Hysterectomy, performed in [place], [place], 200 3 Angioplasty, performed at [facility] by Dr. Caio garcia, 10/2021 Thyroidectomy, partial, performed at [facility] by Dr. Patricia Pichardo, 10/11/22 Removal of cataracts, bilateral, perform ed at [facility] by Dr. Gunn, 01/2023
[2023-03-14 23:46] VITALS: BP 161/87; PULSE 65; RESP 17; TEMP 36.8; O2SAT 95
[2023-03-15] VITALS (11 sets, daily range): BP systolic 115–140; BP diastolic 68–85; PULSE 64–83; RESP 16–20; TEMP 36.6–36.9; O2SAT 90–97
--- NOTE | 2023-03-15 00:22 | USCV_ITS ---
Génesis Titus Age: 67 Gender: F : 1955 Exam Date: 03/15/2023 06:26 Ordering Phys: Evangelista Antonio MD Technologist: Wilner Mcgee [place] [facility] [place]: cva BP: 121 / 71 HR: 83 Rhythm: Sinus Technical Quality: Poor because of body habitus MEASUREMENTS (Male / Female) Normal Values 2D ECHO LV Diastolic Diameter PLAX 3.9 cm 4.2 - 5.9 / 3.9 - 5.3 cm LV Systolic Diameter PLAX 2.3 cm IVS Diastolic Thickness 1.2 cm 0.6 - 1.0 / 0.6 - 0.9 cm IVS Systolic Thickness 1.7 cm LVPW Diastolic Thickness 1.2 cm 0.6 - 1.0 / 0.6 - 0.9 cm LVPW Systolic Thickness 1.5 cm LVOT Diameter 2.1 cm LV Ejection Fraction 2D Teich 71.1 % LV Ejection Fraction MOD 2C 72.6 % LV Ejection Fraction 2C AL 71.9 % LA Diameter 3.3 cm LA Width 3.9 cm IVC Diameter 1.5 cm M-MODE Aortic Annulus Diameter 3.2 cm LA Ao Ratio MM 1.1 DOPPLER AV Peak Velocity 127.0 cm/s LVOT Peak Velocity 96.0 cm/s AV Area Cont Eq vti 2.8 cm squared AV Area Cont Eq pk 2.6 cm squared MV Area PHT 2.7 cm squared Mitral E to A Ratio 0.7 MV E' Velocity 30.5 cm/s Mitral E to MV E' Ratio 7.9 Mitral E to LV E' Lateral Ratio 7.5 Mitral E to LV E' Septal Ratio 8.2 TR Peak Velocity 119.0 cm/s TR Peak Gradient 5.7 mmHg TV Peak E Velocity 80.0 cm/s Right Atrial Pressure 3.0 mmHg Pulmonary Artery Systolic Pressu 8.7 mmHg FINDINGS Left Ventricle Technically limited quality echocardiogram because of poor ultrasonic windows. LV systolic function is normal with EF of 60 to 65%. No regional wall motion abnormalities are seen. Grade 1 diastolic dysfunction. Right Ventricle Normal in size and function Right Atrium Not well visualized Left Atrium Normal in size Mitral Valve Grossly normal Aortic Valve Not well-visualized Tricuspid Valve Not well-visualized Pulmonic Valve Not well-visualized Pericardium Normal Aorta Normal in size IVC Not well visualized CONCLUSIONS Technically limited quality echocardiogram because of poor ultrasonic windows. LV systolic function is normal with EF of 60 to 65%. No regional wall motion abnormalities are seen. Grade 1 diastolic dysfunction. Valve structures are not well-visualized Compared to prior echocardiogram from 2021, no significant changes are seen Yariel Payan MD (Electronically Signed) Final Date: 15 March 2023 19:31 S
--- NOTE | 2023-03-15 00:23 | ECG_ITS ---
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 Measurements Intervals [place] Rate: 64 P: 57 PA: 151 QRS: 3 QRSD: 97 T: 60 QT: 378 QTc: 391 Interpretive Statements SINUS RHYTHM NONSPECIFIC T-WAVE ABNORMALITY No previous ECG available for comparison Electronically Signed On 03-15-2023 8:24:06 CDT by Yariel Payan M.D. [id number]
--- NOTE | 2023-03-15 00:25 | P.HP_ITS ---
Providers/Chief Complaint Admitting Physician: Evangelista Antonio MD Primary Care Provider: Mercy Garcia MD Chief Complaint: possible CVA History of Present Illness Génesis Titus is a 67 year old female with a past medical history of bradycardia, COPD, hypertension, hyperlipidemia, sleep apnea, who presents to [facility] for a transfer from [facility] concerns for CVA. Patient tells me that yesterday, she had episodes of visual hallucinations, she visualized in the afternoon that there was spiders coming out of her faucet, there was a striped color fish in the toilet, her visual hallucinations were transient, she really did not have any other significant neurologic symptoms. She tells me that this morning she woke up, and when she got out of bed, she was very unsteady on her feet, and felt like she was drunk, no facial droop no slurring of her words, no focal weakness, but she felt very unsteady, so she went back to bed, she had to feed her dogs so she got up again, later on, and went out to feed her dogs when her brother saw her, he thought she was drunk but in fact she was not, he also noticed that she was slurring her words, no facial droop reported, however she delayed coming to the emergency room, and eventually her brother was able to convince her to come to the emergency room at the emergency room, her CT of the head showed old left occipital lobe infarct, 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 She also reports about a week history of feeling nauseous, no abdominal pain, no diarrhea, but she has had intermittent episodes of nausea, she is not exactly sure why Review of Systems Const: Denies: fever(s) Eyes: Denies: change in vision ENMT: Denies: throat pain Card: Denies: chest pain Resp: Denies: dyspnea GI: Denies: abdominal pain : Denies: flank pain Musc: Denies: neck pain Skin/Breast: Denies: rash Neuro: Reports: lack of coordination, difficulty walking and dizziness; Denies: headache(s), numbness in extremities, weakness in extremities or confusion Psych: Denies: anxiety Endo: Denies: polyuria [place]/Lymph: Denies: easy bruising Medications/Allergies Home Medications Medication Instructions Recorded Confirmed Last Taken Type cyclobenzaprine 10 mg tablet 10 mg PO TID PRN muscle spasm #60 06/09/21 03/12/23 10/15/21 Rx tabs rosuvastatin 40 mg tablet 40 mg PO QPM 07/08/21 03/12/23 10/15/21 History valsartan 320 mg tablet 320 mg PO DAILY 07/08/21 03/12/23 10/15/21 History bupropion HCl 100 mg tablet 300 mg PO DAILY 09/30/21 03/12/23 10/15/21 History gabapentin 300 mg capsule 300 mg PO TID pain 10/15/21 03/12/23 10/15/21 History levothyroxine 100 mcg capsule 100 mcg PO DAILY 10/15/21 03/12/23 10/15/21 History alendronate 70 mg tablet (Fosamax) 70 mg PO .once a week #12 tabs 09/28/22 03/12/23 Unknown Rx ropinirole 0.25 mg tablet 0.25 mg PO DAILY 09/28/22 03/12/23 Unknown History docusate sodium 100 mg capsule 100 mg PO BID #60 caps 10/26/22 03/12/23 Unknown Rx polyethylene glycol 3350 17 gram 17 g PO BID #100 ea 10/26/22 03/12/23 Unknown Rx oral powder packet (Miralax) albuterol sulfate 90 mcg/actuation 2 puff inhalation Q6H PRN 11/16/22 03/12/23 Unknown Rx aerosol inhaler shortness of breath or wheezing #8.5 grams epinephrine 0.3 mg/0.3 mL 0.3 mg (0.3 mL) IM Q4H PRN 12/21/22 03/12/23 Unknown Rx injection, auto-injector (EpiPen anaphylaxis #2 ea 2-Isacc) dapagliflozin propanediol 5 mg tab PO 01/07/23 03/12/23 Unknown History tablet (Farxiga) mupirocin 2 % topical ointment 1 applic topical BID 2 weeks #22 01/07/23 03/12/23 Unknown Rx grams semaglutide 0.25 mg or 0.5 mg (2 ml SUBCUT 01/07/23 03/12/23 Unknown History mg/3 mL) subcutaneous pen injector (Ozempic) cpap supplies #1 ea 01/15/23 03/12/23 Unknown Rx lactulose 10 gram/15 mL oral 10 g (15 mL) PO DAILY PRN 02/04/23 03/12/23 Unknown Rx solution constipation #473 mL omeprazole 40 mg capsule,delayed 40 mg PO DAILY #14 caps 03/12/23 03/12/23 Unknown Rx release ondansetron 4 mg disintegrating 4 mg PO Q8H PRN nausea and 03/12/23 03/12/23 Unknown Rx tablet vomiting #10 tabs Allergies Allergy/AdvReac Type Severity Reaction Status Date / Time Sulfa (Sulfonamide Allergy Unknown hives, Verified 01/21/23 11:35 Antibiotics) lips swelling naproxen AdvReac Severe breaks out Verified 03/12/23 12:44 in hives, lips and mouth start swelling PFSH Acute PFSH: Medical History Bradycardia Constipation COPD (chronic obstructive pulmonary disease) Diabetes mellitus High risk for hip fracture HTN (hypertension) Hyperlipidemia Hypothyroidism Hypothyroidism, postsurgical Osteopenia Sleep apnea Surgical History History of cholecystectomy History of dilatation and curettage History of total hysterectomy with bilateral salpingo-oophorectomy (BSO) benign pathology Family History Father Alcoholism Cancer lung Heart disease Hypertension Mother Hypertension Sister Heart disease Hypertension Brother Heart disease Hypertension CAD (coronary artery disease) Diabetes Denies family history of Anesthesia complication Bleeding disorder Social History Smoking and tobacco status: current every day smoker cigarettes Packs smoked per day: 1 Years cigarettes smoked: 54 Quit status (tobacco): has tried quititng Alcohol intake: never Substance/Drug Use: former Date of last use: 35 years ago, cocaine, no hx iv drugs Adopted: Yes Household members: family Marital status: Number of children: 3 Number of grandchildren: 5 Current occupational status: retired 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 Agree to transfusion: Yes Vitals/I&O/Wt Last Vital Signs Temp 98.3 F 03/14/23 23:46 Pulse 65 03/14/23 23:46 Resp 17 03/14/23 23:46 BP 161/87 03/14/23 23:46 Pulse Ox 95 03/14/23 23:46 O2 Del Method Room Air 03/14/23 23:37 Weight last 48 hrs Weight 68.266 kg Physical Exam Const: COMMON NORMALS: no acute distress and patient oriented x3 HENMT: COMMON NORMALS: normocephalic HEAD & SCALP: normocephalic Eye: COMMON NORMALS: Equal, round and reactive pupils present and EOMs intact bilaterally Neck/C-Spine: COMMON NORMALS: full ROM and no lymphadenopathy Lymph: LYMPHATIC: no lymphadenopathy noted Resp: COMMON NORMALS: normal respiratory effort, No retractions, No use of accessory muscles and clear to auscultation bilaterally AUSCULTATION: clear to auscultation bilaterally Cardio: COMMON NORMALS: regular rate, regular rhythm, S1 normal heart sound present and S2 normal heart sound present RATE: regular rate RHYTHM: regular rhythm HEART SOUNDS: S1 normal heart sound present and S2 normal heart sound present GI: COMMON NORMALS: Normal to inspection, nondistended, normoactive bowel sounds present, Soft to palpation and non-tender : COMMON NORMALS: Yes no CVA tenderness Extremity: COMMON NORMALS: no pedal edema Neuro: COMMON NORMALS: patient oriented x3, CN's II-XII intact bilaterally, moves all extremities and no focal motor deficits OTHER: Lwkl-le-larj abnormal bilaterally Psych: COMMON NORMALS: mental status grossly normal A&P Assessment and plan (1) Acute CVA (cerebrovascular accident): (2) Diabetes mellitus: (3) Hyperlipidemia: Qualifiers: Hyperlipidemia type: moderate mixed hyperlipidemia not requiring statin therapy Qualified Code(s): E78.2 - Mixed hyperlipidemia (4) HTN (hypertension): Qualifiers: Hypertension type: essential hypertension Qualified Code(s): I10 - Essential (primary) hypertension (5) Anterior communicating artery aneurysm: Plan Acute CVA -NIH stroke scale 1, out of tPA window -Slurred speech has resolved, continues to have unsteadiness on her speech, abnormal [id number]-pgms -CT of the head shows left occipital lobe infarct, chronic -Has anterior communicating our aneurysm, measuring 4 mm, will need to follow-up with neurosurgery -[facility] -Neurochecks, aspiration precautions, NIH stroke scale, speech therapy eval, dysphagia bedside swallow eval, PT OT -Has received aspirin, Plavix, Crestor at [facility] -Continue aspirin, Plavix -Allow for permissive hypertension -IV fluids -Cardiac echo -We will consider MRI based on clinical progress -Full code -Lovenox for DVT prophylaxis Attestations Medical Necessity Statement*: Patient requires hospitalization, outpatient with observation, for acute CVA Diagnoses Acute CVA (cerebrovascular accident) I63.9 Diabetes mellitus E11.9 Hyperlipidemia E78.2 Hyperlipidemia type: moderate mixed hyperlipidemia not requiring statin therapy HTN (hypertension) I10 Hypertension type: essential hypertension Anterior communicating artery aneurysm I67.1
[2023-03-15 01:14] LABS: Troponin(5th) Baseline 8 ng/L (0-10)
[2023-03-15] MEDS: pantoprazole 40 mg SDV IVP (01:34)
[2023-03-15] MEDS: enoxaparin 40 mg/0.4 mL Syringe SUBCUT (01:34)
[2023-03-15] MEDS: sodium chloride 0.9% 1,000 ML 75 ML IV ×2 (01:34→14:44)
[2023-03-15 03:00] LABS: Estmated Average Glucose 111; Hemoglobin A1C 5.5 % (4.0-6.0)
[2023-03-15 03:08] LABS: Troponin 5 2HR 8.16 ng/L (0-10); Troponin 5 2HR Delta 0.16 ABS# (0-10)
[2023-03-15 03:12] LABS: Chol HDL Ratio 2.76 mg/dL (0.0-4.40); Cholesterol 124 mg/dL (0-200); HDL Cholesterol 45 mg/dL (60-100); LDL Cholesterol Calculated 57 mg/dL (50-129); LDL HDL Ratio 1.27 RATIO (0.00-3.22); Thyroid Stimulating Hormone 0.49 uIU/mL (0.27-4.20); Triglycerides 108 mg/dL (0-150)
--- NOTE | 2023-03-15 04:23 | ECG_ITS ---
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 Measurements Intervals [place] Rate: 63 P: 64 CT: 123 QRS: 5 QRSD: 100 T: 39 QT: 424 QTc: 437 Interpretive Statements SINUS RHYTHM Compared to ECG 03/15/2023 01:10:34 T-wave abnormality no longer present Electronically Signed On 03-15-2023 10:00:41 CDT by Camryn Byrne M.D. [email or web address] [email or web address] hospitalAileron Therapeutics/store/[id number]
[2023-03-15 06:50] LABS: Glucose Point of Care 91 mg/dL (70-110)
[2023-03-15 07:09] LABS: Troponin 5 6HR 9 ng/L (0-10); Troponin 5 6HR Delta 1 ng/L (0-12)
--- NOTE | 2023-03-15 07:23 | ECG_ITS ---
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 Measurements Intervals [place] Rate: 64 P: 71 LA: 153 QRS: 24 QRSD: 96 T: 57 QT: 422 QTc: 439 Interpretive Statements SINUS RHYTHM Compared to ECG 03/15/2023 04:50:37 No significant changes Electronically Signed On 03-15-2023 8:24:31 CDT by Yariel Payan M.D. [email or web address] [email or web address] systemHeavenly Foodsmer[facility].[employer]/store/[id number]
[2023-03-15] MEDS: aspirin 81 mg EC Tablet PO (08:38)
[2023-03-15] MEDS: clopidogrel 75 mg Tablet PO (08:38)
[2023-03-15] MEDS: ropinirole 0.25 mg Tablet PO (08:38)
[2023-03-15] MEDS: buPROPion SR (12 HR) 100 mg Tablet 200 MG PO (08:39)
[2023-03-15] MEDS: levothyroxine 100 mcg Tablet PO (08:39)
--- NOTE | 2023-03-15 10:40 | MR_ITS ---
WS: [id number] MRI HEAD WITHOUT CONTRAST TECHNIQUE: Sagittal T1, T2 axial, T2 axial FLAIR, axial and coronal T1 images, axial susceptibility w eighted imaging, axial diffusion weighted images, and coronal T2 images were obtained. CLINICAL INFORMATION: poss cva COMPARISON: None. FINDINGS: No evidence of restricted diffusion to suggest acute ischemia. Ventricular system and basal cisterns are patent. Advanced small vessel changes with moderate parenchymal volume loss.Chronic inf arct in the parasagittal LEFT posterior temporal lobe with encephalomalacia and gliosis. Normal posterior fossa. Normal vascular flow voids at the skull base. No extra-axial fluid collectio ns. No evidence of mass or mass effect. Paranasal sinuses are well aerated. Normal posterior nasopharynx and parapharyngeal fat. Mucosal thickening in the LEFT greater than RIGH T mastoid air cells. No hemosiderin on the susceptibility weighted images. IMPRESSION: 1. No evidence of restricted diffusion to suggest acute ischemia. 2. Advanced small vessel changes. Moderate parenchymal volume loss. 3. Chronic infarct in the parasagittal LEFT posterior temporal lobe with encephalomalacia and gliosi s. 4. Mild mucosal thickening in the LEFT mastoid air cells. 5. No hemosiderin on the susceptibility weighted images.
[2023-03-15 11:08] LABS: Glucose Point of Care 120 mg/dL (70-110)
[2023-03-15 16:44] LABS: Glucose Point of Care 132 mg/dL (70-110)
[2023-03-15] MEDS: buPROPion SR (12 HR) 100 mg Tablet PO (17:37)
--- NOTE | 2023-03-15 19:44 | P.PN_ITS ---
Subjective Subjective: she is still feeling somewhat dizzy, somewhat nauseated. Feels that the objects in the room are moving. Vitals/I&O/Wt Last Vital Signs Temp 98.2 F 03/15/23 15:47 Pulse 66 03/15/23 19:40 Resp 18 03/15/23 19:40 BP 128/76 03/15/23 15:47 Pulse Ox 93 03/15/23 19:40 O2 Del Method Room Air 03/15/23 19:40 FiO2 21 03/15/23 01:14 03/15/23 03/15/23 03/15/23 06:59 14:59 22:59 Intake Total 1407.5 / 1407.5 240 / 1647.5 Balance 1407.5 / 1407.5 240 / 1647.5 Weight last 48 hrs Weight 68.266 kg Physical Exam Const: COMMON NORMALS: patient oriented x3 and alert GENERAL APPEARANCE: cooperative ORIENTATION/CONSCIOUSNESS: Yes awake HENMT: COMMON NORMALS: oropharynx normal Neck/C-Spine: COMMON NORMALS: no JVD Resp: COMMON NORMALS: normal respiratory effort and clear to auscultation bilaterally AUSCULTATION: clear to auscultation bilaterally Cardio: COMMON NORMALS: no JVD, regular rhythm, S1 normal heart sound present, S2 normal heart sound present and No murmurs present (Cardio) RHYTHM: regular rhythm HEART SOUNDS: S1 normal heart sound present and S2 normal heart sound present GI: COMMON NORMALS: Normal to inspection, nondistended, normoactive bowel sounds present, Soft to palpation and non-tender PALPATION: Yes Soft to pal pation Extremity: COMMON NORMALS: no joint enlargement and no pedal edema Neuro: COMMON NORMALS: patient oriented x3 and moves all extremities SENSORIUM/ORIENTATION: Yes alert OTHER: She is awake, alert, following directions. I do not appreciate facial droop. Visual méndez full to confrontation. No visual extinction No difficulty with FNF. No upper or lower extremity drift. Sensation symmetrical, no sensory extinction. Skin: COMMON NORMALS: no rashes or lesions noted GENERAL SKIN EXAM: no rashes or lesions noted A&P Assessment and plan (1) Acute CVA (cerebrovascular accident): (2) Diabetes mellitus: (3) Hyperlipidemia: Qualifiers: Hyperlipidemia type: moderate mixed hyperlipidemia not requiring statin therapy Qualified Code(s): E78.2 - Mixed hyperlipidemia (4) HTN (hypertension): Qualifiers: Hypertension type: essential hypertension Qualified Code(s): I10 - Essential (primary) hypertension (5) Anterior communicating artery aneurysm: Plan Acute CVA Possible CVA, noted to chronic CVA, concern for possible posterior circulation recurrent CVA with persistent mild vertigo, nausea, but overall did well on neurological exam. Discussed with her assessment by MRI. Requested. Reviewed echocardiogram result. Noted normal EF, no RWMA. Grade 1 diastolic dysfunction. Reviewed PT, OT documentation. Noted recommendation for home exercise program. Discussed with case management. Continue gentle IV hydration for now, noted soft blood pressure. reviewed A1c. Noted 5.5. Reviewed cholesterol profile. Continue aspirin, statin. Currently also on Plavix. -Full code -Lovenox for DVT prophylaxis Attestations Medical Necessity Statement*: Continue hospitalization for assessment management following suspected CVA. Diagnoses Acute CVA (cerebrovascular accident) I63.9 Diabetes mellitus E11.9 Hyperlipidemia E78.2 Hyperlipidemia type: moderate mixed hyperlipidemia not requiring statin therapy HTN (hypertension) I10 Hypertension type: essential hypertension Anterior communicating artery aneurysm I67.1
[2023-03-15] MEDS: atorvastatin 40 mg Tablet PO (20:12)
[2023-03-15] MEDS: acetaminophen 325 mg Tablet 650 MG PO (20:12)
[2023-03-15 20:53] LABS: Glucose Point of Care 161 mg/dL (70-110)
[2023-03-15] MEDS: nicotine 21 mg Patch 1 PATCH TRANSDERMA (23:07)
[2023-03-16] VITALS (7 sets, daily range): BP systolic 133–147; BP diastolic 82–83; PULSE 63–76; RESP 16–20; TEMP 36.1–36.7; O2SAT 93–94
[2023-03-16] MEDS: enoxaparin 40 mg/0.4 mL Syringe SUBCUT (00:14)
[2023-03-16] MEDS: pantoprazole 40 mg SDV IVP (01:07)
[2023-03-16] MEDS: sodium chloride 0.9% 1,000 ML 75 ML IV (03:47)
[2023-03-16 05:30] LABS: Basophils % 0.8 %; Eosinophils # 0.2 10^3/uL (0.0-0.8); Eosinophils % 3.1 %; Hematocrit 42.3 % (36-47); Lymphocytes # 1.7 10^3/uL (0.8-4.8); Lymphocytes % 34.1 %; Mean Corpuscular HGB Conc 31.9 g/dL (30-55); Mean Corpuscular Hemoglobin 30.5 pg (27-33); Mean Corpuscular Volume 95.5 fl (85-98); Mean Platelet Volume 10.9 fL (7.4-10.4); Monocytes # 0.4 10^3/uL (0.2-0.9); Monocytes % 7.3 %; Neutrophils # 2.77 10^3/uL (1.8-7.7); Neutrophils % 54.5 %; Nucleated Red Blood Cells % 0 %; Platelet Count 195 10^3/cmm (157-399); Red Blood Count 4.43 10^6/uL (3.85-5.65); Red Cell Distribution Width 12.6 % (12.1-15.1); White Blood Count 5.08 10^3/uL (3.29-11.43)
[2023-03-16 05:53] LABS: Blood Urea Nitrogen 13 mg/dL (8-23); Calcium 8.9 mg/dL (8.5-10.5); Carbon Dioxide 28 mmol/L (22-29); Chloride 108 mmol/L (98-107); Glomerular Filtration Rate 49.4 mL/min (90-130); Glucose 92 mg/dL (65-115); Osmolality Calculated 294 mOsm/kg (285-295); Sodium 142 mmol/L (136-145)
[2023-03-16 06:25] LABS: Glucose Point of Care 95 mg/dL (70-110)
--- NOTE | 2023-03-16 09:29 | PC.CHAP ---
Pastoral Care Encounter/Spiritual Assessment Type of Contact [] Declined psychology physician visit [] Patient/Family/Request visit [] Outpatient visit [] Follow-up visit [] Physician referral [] Code/Alert [x] Routine visit [] Staff referral [] Actively dying [] Patient sleeping [] Family support [] [] Out of room [] Palliative care [] [] Receiving care in room [] Pre-surgical visit [] Trauma [] Long length of stay [] ICU visit [] Other: Relational/Emotional Strength [x] Patient feels connected with others/family/visitors/staff [] Distress [] Loneliness/isolation [] Abandonment Spirituality of Patient [x] Person of Amy [] Attends Roman Catholic of their Amy [x] Believes in Prayer [] Reads Bible or Restorationism materials [] There are Spiritual issues to be addressed 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 [x] Prayer [x] Active listening [] Non-anxious presence [x] Spiritual/emotional support [] Crisis/trauma care [] Spiritual counseling [] Bereavement support [] Provided bereavement packet [] Provided Bible/devotional materials [] Provided toy/stuffed animal, coloring book to patient or family member [] Provided Communion [] Anointing/[place] [] Salvation [x] Completed spiritual assessment [] Other: Impact on Illness or Injury [] Angry [] Fearful [] Anxious [] Often cries [] Exhaustion [] Unable to work [] Unable to attend anabaptism [] Unable to walk/stand [] Unable to read [] Unable to drive [] Unable to eat/drink [] Unable to sleep [] Unable to be with family [] Patient intubated [] Other: Summary Time spent with patient 5 min
[2023-03-16] MEDS: aspirin 81 mg EC Tablet PO (09:55)
[2023-03-16] MEDS: buPROPion SR (12 HR) 100 mg Tablet 200 MG PO (09:55)
[2023-03-16] MEDS: clopidogrel 75 mg Tablet PO (09:55)
[2023-03-16] MEDS: nicotine 21 mg Patch 1 PATCH TRANSDERMA (09:56)
[2023-03-16] MEDS: levothyroxine 100 mcg Tablet PO (09:56)
[2023-03-16] MEDS: ropinirole 0.25 mg Tablet PO (09:57)
[2023-03-16 11:10] LABS: Glucose Point of Care 101 mg/dL (70-110)
--- NOTE | 2023-03-16 11:24 | PM.DCS ---
Discharge Providers Date of Admission: 03/15/23 00:20 Date of Discharge: March 16, 2023 Attending Provider at Admission: Evangelista Antonio MD Attending Provider at Discharge: Eddie Polk Primary Care Provider: Mercy Garcia MD Diagnoses at Discharge Discharge Diagnosis (1) Acute CVA (cerebrovascular accident): Status: Acute (2) Diabetes mellitus: Status: Chronic (3) Hyperlipidemia: Status: Chronic Qualifiers: Hyperlipidemia type: moderate mixed hyperlipidemia not requiring statin therapy Qualified Code(s): E78.2 - Mixed hyperlipidemia (4) HTN (hypertension): Status: Chronic Qualifiers: Hypertension type: essential hypertension Qualified Code(s): I10 - Essential (primary) hypertension (5) Anterior communicating artery aneurysm: Status: Acute Reason for Visit Reason for Visit: possible CVA Hospital Course Hospital Course Pleasant 67-year-old lady presented to outside facility with slurred speech, steady gait, abnormal [id number] on exam, but also was having symptoms of hallucinations. With concern for CVA was transferred here. She was not a candidate for tPA. At outside facility and incidentally noted to have 4 mm anterior communicating artery aneurysm. She was admitted for additional assessment management, started on aspirin, statin. A1c noted 5.5. As she had some persistent symptoms of vertigo MRI of the brain was obtained, this showed advanced small vessel changes, moderate parenchymal volume loss. Chronic infarct in the parasagittal left posterior temporal lobe with encephalomalacia and gliosis. Mild mucosal thickening in the left mastoid air cells. No hemosiderin on susceptibility weighted images. No atrial fibrillation noted on EKG. Echocardiogram with normal ejection fraction, grade 1 diastolic dysfunction. Blood pressures with some fluctuation between 100 teens up into higher 140s. Her symptoms today are resolved. She was assessed by PT, OT, and found to do well with home exercise program. Continue to optimize cardiovascular risk factors. She is also referred for follow-up with neurology. She does feel like she may have too many medications, she tried to stop gabapentin, but started feeling unwell, please help her with de-escalating some of the medications. Discussed with her at some medications may risk withdrawal and have to be Gradually. She understands to follow-up with primary provider to discuss medications before discontinuation. Physical Exam Narrative: Accompanied by her brother. Const: COMMON NORMALS: patient oriented x3 and alert GENERAL APPEARANCE: cooperative ORIENTATION/CONSCIOUSNESS: Yes awake HENMT: COMMON NORMALS: oropharynx normal Neck/C-Spine: COMMON NORMALS: no JVD Resp: COMMON NORMALS: normal respiratory effort and clear to auscultation bilaterally AUSCULTATION: clear to auscultation bilaterally Cardio: COMMON NORMALS: no JVD, regular rhythm, S1 normal heart sound present, S2 normal heart sound present and No murmurs present (Cardio) RHYTHM: regular rhythm HEART SOUNDS: S1 normal heart sound present and S2 normal heart sound present GI: COMMON NORMALS: Normal to inspection, nondistended, normoactive bowel sounds present, Soft to palpation and non-tender PALPATION: Yes Soft to palpation Extremity: COMMON NORMALS: no joint enlargement and no pedal edema Neuro: COMMON NORMALS: patient oriented x3 and moves all extremities SENSORIUM/ORIENTATION: Yes alert OTHER: She is awake, alert, following directions. I do not appreciate facial droop. Visual méndez full to confrontation. No visual extinction No difficulty with FNF. No upper or lower extremity drift. Sensation symmetrical, no sensory extinction. Skin: COMMON NORMALS: no rashes or lesions noted GENERAL SKIN EXAM: no rashes or lesions noted Discharge Data Studies Completed and Pending Completed Studies During Hospitalization Category Date Time Status MR head wo con* [id number] Routine MRI 03/15/23 10:40 Completed CV. echo complete* [id number] Routine Ultrasound 03/15/23 00:22 Completed Laboratory Results WBC 5.08 10^3/uL (3.29-11.43) 03/16/23 05:04 RBC 4.43 10^6/uL (3.85-5.65) 03/16/23 05:04 Hgb 13.50 g/dL (11.27-16.99) 03/16/23 05:04 Hct 42.3 % (36-47) 03/16/23 05:04 MCV 95.5 fl (85-98) 03/16/23 05:04 MCH 30.5 pg (27-33) 03/16/23 05:04 MCHC 31.9 g/dL (30-55) 03/16/23 05:04 RDW 12.6 % (12.1-15.1) 03/16/23 05:04 Plt Count 195 10^3/cmm (157-399) 03/16/23 05:04 MPV 10.9 fL (7.4-10.4) H 03/16/23 05:04 Neut % (Auto) 54.5 % 03/16/23 05:04 Lymph % (Auto) 34.1 % 03/16/23 05:04 [place] % (Auto) 7.3 % 03/16/23 05:04 Eos % (Auto) 3.1 % 03/16/23 05:04 Baso % (Auto) 0.8 % 03/16/23 05:04 Neut # (Auto) 2.77 10^3/uL (1.8-7.7) 03/16/23 05:04 Lymph # (Auto) 1.7 10^3/uL (0.8-4.8) 03/16/23 05:04 [place] # (Auto) 0.4 10^3/uL (0.2-0.9) 03/16/23 05:04 Eos # (Auto) 0.2 10^3/uL (0.0-0.8) 03/16/23 05:04 Baso # (Auto) 0.0 10^3/uL (0.0-0.1) 03/16/23 05:04 Nucleated RBC % (auto) 0 % 03/16/23 05:04 Nucleated RBCs # 0.0 /100WBC 03/16/23 05:04 Sodium 142 mmol/L (136-145) 03/16/23 05:04 Potassium 4.0 mmol/L (3.5-5.1) 03/16/23 05:04 Chloride 108 mmol/L (98-107) H 03/16/23 05:04 Carbon Dioxide 28 mmol/L (22-29) 03/16/23 05:04 Anion Gap 10.0 (5-19) 03/16/23 05:04 BUN 13 mg/dL (8-23) 03/16/23 05:04 Creatinine 1.1 mg/dL (0.5-0.9) H 03/16/23 05:04 GFR Calculation 49.4 mL/min (90-130) L 03/16/23 05:04 Glucose 92 mg/dL (65-115) 03/16/23 05:04 POC Glucose 101 mg/dL (70-110) 03/16/23 11:07 Estimat Average Glucose 111 03/15/23 02:20 Hemoglobin A1c 5.5 % (4.0-6.0) 03/15/23 02:20 Calculated Osmolality 294 mOsm/kg (285-295) 03/16/23 05:04 Calcium 8.9 mg/dL (8.5-10.5) 03/16/23 05:04 Troponin T Baseline 8 ng/L (0-10) 03/15/23 00:40 Troponin T 120 Minute 8.16 ng/L (0-10) 03/15/23 02:20 Delta Troponin T 0.16 ABS# (0-10) 03/15/23 02:20 Troponin T Hi Sens 6Hr 9 ng/L (0-10) 03/15/23 06:28 Troponin T Hi Sens 6Hr Delta 1 ng/L (0-12) 03/15/23 06:28 Triglycerides 108 mg/dL (0-150) 03/15/23 02:20 Cholesterol 124 mg/dL (0-200) 03/15/23 02:20 LDL Cholesterol, Calc 57 mg/dL (50-129) 03/15/23 02:20 HDL Cholesterol 45 mg/dL (60-100) L 03/15/23 02:20 LDL/HDL Ratio 1.27 RATIO (0.00-3.22) 03/15/23 02:20 Cholesterol/HDL Ratio 2.76 mg/dL (0.0-4.40) 03/15/23 02:20 TSH 0.49 uIU/mL (0.27-4.20) 03/15/23 02:20 Vitals Last Vital Signs Temp 97.3 F L 03/16/23 08:00 Pulse 67 03/16/23 08:00 Resp 16 03/16/23 08:00 BP 135/82 03/16/23 08:00 Pulse Ox 94 03/16/23 08:00 O2 Del Method Room Air 03/16/23 08:00 FiO2 21 03/15/23 01:14 Discharge Plan Discharge Patient Disposition: Home Condition: Stable Prescriptions: New aspirin 81 mg Tablet,Delayed Release (Dr/Ec) 81 mg PO DAILY Qty: 90 0RF Continued cyclobenzaprine 10 mg tablet 10 mg PO TID PRN (Reason: muscle spasm) Qty: 60 0RF gabapentin 300 mg capsule 300 mg PO TID rosuvastatin 40 mg tablet 40 mg PO QPM valsartan 320 mg tablet 320 mg PO QAM epinephrine [EpiPen 2-Isacc] 0.3 mg/0.3 mL auto-injector 0.3 mg IM Q4H PRN (Reason: anaphylaxis) Qty: 2 0RF albuterol sulfate 90 mcg/actuation HFA aerosol inhaler 2 puff inhalation Q6H PRN (Reason: shortness of breath or wheezing) Qty: 8.5 0RF levothyroxine 100 mcg capsule 100 mcg PO QAM ropinirole 0.25 mg tablet 0.25 mg PO DAILY PRN (Reason: restless legs) Ozempic 0.25 mg or 0.5 mg (2 mg/3 mL) pen injector 0.25 mg SUBCUT Q7D omeprazole 40 mg capsule,delayed release(DR/EC) 40 mg PO DAILY Qty: 14 0RF ondansetron 4 mg tablet,disintegrating 4 mg PO Q8H PRN (Reason: nausea and vomiting) Qty: 10 0RF (DME) cpap supplies See Rx Instructions .Route .MEDSUPPLY Qty: 1 0RF Rx Instructions: As directed bupropion HCl 150 mg tablet sustained-release 12 hr See Rx Instructions .ROUTE .COMPLEX Rx Instructions: Take 2 tablets in the morning and 1 tablet in the evening Discharge Orders: Discharge Order (Routine); Ordered 03/16/23 Ordered By: Eddie Polk Other Ambulatory Orders: DME: Walker (Order) Location: None Selected Ordered By: Eddie Polk Referrals: [facility] PROVID[facility] [Provider Group] - 7-10 days (Prior CVA We have notified your physician's clinic of the need for a follow-up appointment to be scheduled. If you have not heard from them within the next 2 business days, please call them directly. You may also reach out to our finance and administration manager at [phone] and she can assist you.) Karen [Outside] (Call Karen to order your CPAP Supplies) Mercy Garcia MD [Primary Care Provider] - 4-7 days (We have notified your physician's clinic of the need for a follow-up appointment to be scheduled. If you have not heard from them within the next 2 business days, please call them directly. You may also reach out to our finance and administration manager at [phone] and she can assist you.) Discharge Diet: Cardiac and Diabetic Discharge Activity: As per PT/OT instructions Patient Instructions: Aspirin (By mouth), Atorvastatin (By mouth), Ischemic Stroke (GEN), Prevent Cardiovascular Disease (GEN), Stroke Stoplight Activity Restrictions/Additional Instructions: Monitor blood pressure 2-3 times daily and write down values or bring your blood pressure cuff for follow up appointment. Target blood pressure 120/80. Follow up with your primary provider and neurology regarding prior stroke and the incidentally found 4mm anterior communicating artery brain aneurysm as per imaging at the other hospital. Continue to optimize cardiovascular risk factors. Seek medical attention immediately in case of any worsening or new concerning symptoms as discussed. Discharge Attestations Time Spent in Discharge Care*: greater than 30 min Quality Metrics Clinical Quality Measures [ Cerebrovascular Accident { Contraindication to Antithrombotic: None; antithrombotic prescribed; Contraindication to Anticoagulation: Overlap treatment not indicated; Contraindication to Statin: None; Statin prescribed;}] Coding Level of Care Code 71749 Total time (in minutes) for Discharge: 45 Diagnoses Acute CVA (cerebrovascular accident) I63.9 Diabetes mellitus E11.9 Hyperlipidemia E78.2 Hyperlipidemia type: moderate mixed hyperlipidemia not requiring statin therapy HTN (hypertension) I10 Hypertension type: essential hypertension Anterior communicating artery aneurysm I67.1
--- NOTE | 2023-03-16 12:29 | PC.NURSE ---
Discussed discharge instructions, new medications, follow up appointments and instructed per Dr. Polk not to fill the Lipitor. He could not cancel from discharge and patient already taking one. Verbalized understanding.
--- NOTE | 2023-03-16 12:35 | PC.OT ---
OT TREATMENT ATTEMPTED. PATIENT REPORTS SHE IS BEING D/C TODAY. STATES SHE HAS NO CONCERNS ABOUT ADLs AT HOME.
== END 2023-03-16 13:31 | disposition home or self-care (01) ==
PROVIDERS: Admitting Provider Family Medicine; PCP Family Medicine; Visit Provider Internal Medicine
DX: I63.9 Cerebral infarction, unspecified (principal); R29.701 NIHSS score 1; E11.9 Type 2 diabetes mellitus without complications; E78.2 Mixed hyperlipidemia; I10 Essential (primary) hypertension; I67.1 Cerebral aneurysm, nonruptured; J44.9 Chronic obstructive pulmonary disease, unspecified; G47.30 Sleep apnea, unspecified; E03.9 Hypothyroidism, unspecified; F17.210 Nicotine dependence, cigarettes, uncomplicated
CPT/HCPCS: 36415; 36416; 70551; 80048; 80061; 82962; 83036; 84443; 84484; 85025; 92523; 92610; 93005; 93306; 94664; 96372; 97110; 97161; 97165; 97530; C9113; G0378; G0379; J1650; J7030

== ENCOUNTER 2023-03-23 10:11 | Outpatient (CLI) | payer MEDICARE, MEDICAID, SELFPAY ==
--- NOTE | 2023-03-23 10:19 | MM_ITS ---
WS: [id number] DIAGNOSTIC RIGHT DIGITAL TOMOSYNTHESIS MAMMOGRAPHY WITH CAD. HISTORY: POST BX FU COMPARISON: 08/21/2022, 07/03/2022 Technique: CC, MLO and ML views. Spot compression RIGHT CC and MLO. Breast composition: There are scattered areas of fibroglandular density. Lobulated soft tissue mass i n the anterior RIGHT breast near 7:00 is reidentified. There is a biopsy clip in the central mass. Ma ss measures 12 x 11 mm with no increase in size. IMPRESSION: MM/[place] [id number] BI-RADS: 3-Probably Benign FOLLOW UP: 6 Month Follow-up Patient to return to annual screening mammography. Screening mammogram should b e in June 2023.
== END 2023-03-23 10:12 | disposition home or self-care (01) ==
LOC: RAD 10:11
PROVIDERS: PCP Family Medicine; Visit Provider Family Medicine
DX: R92.8 Other abnormal and inconclusive findings on diagnostic imaging of breast (principal); N63.13 Unspecified lump in the right breast, lower outer quadrant; Z98.890 Other specified postprocedural states
CPT/HCPCS: 77061; G0279

== ENCOUNTER 2023-03-26 14:43 | Outpatient (CLI) | payer MEDICARE, MEDICAID, SELFPAY ==
--- NOTE | 2023-03-26 14:51 | MR_ITS ---
WS: [id number] MRI BRAIN WITHOUT CONTRAST HISTORY: OTHER ABNORMALITIES OF GAIT MOBILITY COMPARISON: 03/15/2023 TECHNIQUE: Diffusion imaging, multiplanar T1, T2 and FLAIR imaging obtained. Diffusion imaging is normal. No acute infarct. Advanced small vessel ischemic changes with moderate parenchymal volume loss is reidentified. The ext ent of the white matter disease is more advanced than expected for patient of this age. There is a ch ronic appearing infarct in the LEFT parasagittal LEFT posterior temporal lobe with encephalomalacia a nd surrounding gliosis. Very similar to the prior study. Mild prominence of the ventricles and extra-axial spaces due to atrophy. No inferior displacement of cerebellar tonsils. The sella turcica and pituitary gland are unremarkabl e. Dural venous sinuses and [place] demonstrate no abnormality on this unenhanced studies. Paranasal sinuses: Clear. Mastoid air cells: Small amount of fluid in the LEFT mastoid air cells. Calvarium and scalp: Intact. IMPRESSION: 1. No acute infarct. 2. Advanced small vessel disease with moderate volume loss. Small vessel disease is much more advanc ed than expected for patient of this age. 3. Chronic infarct in the LEFT parasagittal posterior temporal lobe with encephalomalacia and gliosi s is reidentified. 4. No ventriculomegaly.
--- NOTE | 2023-03-26 14:58 | MR_ITS ---
WS: [id number] MRA ANGIOGRAPHY [place] HISTORY: BALANCE PROBLEM COMPARISON: None available. TECHNIQUE: 3-D MR angiography is performed of the pilot [place] of [place]. All images are reviewed including source images. Distal vertebral and basilar arteries are intact with no significant stenosis or plaque. Posterior ce rebral arteries are normal course and caliber. Dominant LEFT posterior communicating artery. The RIGH T posterior communicating artery is not identified. Normal sized posterior cerebral arteries. Intracranial carotid arteries patent. There is a very lobulated appearance of the intracranial caroti d arteries but this is probably due to tortuosity and elongation. Very minimal atherosclerotic plaque . No stenosis and no aneurysm. Hypoplastic but patent RIGHT A1 segment. Dominant LEFT A1 segment. The re is an anterior communicating artery aneurysm suspected to the RIGHT of midline measuring 4.6 mm. A 2 segments are normal. Normal appearance of the middle cerebral arteries. IMPRESSION: 1. Suspected RIGHT anterior communicating artery aneurysm at 4.6 mm. Recommend follow-up CT angiogram of the [place] to confirm. 2. No additional aneurysms. There is mild tortuosity and elongation of the intracranial carotid arter ies. Additional evaluation by CT angiogram can also be performed to exclude additional aneurysms. 3. Hypoplastic but patent RIGHT A1 segment. 4. Hypoplastic or absent RIGHT posterior communicating artery.
== END 2023-03-26 14:44 | disposition home or self-care (01) ==
LOC: RAD 14:44
PROVIDERS: PCP Family Medicine; Visit Provider Family Medicine
DX: R26.89 Other abnormalities of gait and mobility (principal)
CPT/HCPCS: 70544; 70551

== ENCOUNTER → 2023-03-30 14:34 | Outpatient (BNVA) | payer MEDICARE, MEDICAID, SELFPAY | PROVIDERS: PCP Family Medicine; Visit Provider Psychiatry & Neurology Neurology | DX: I63.9 Cerebral infarction, unspecified (principal); I10 Essential (primary) hypertension; Z09 Encounter for follow-up examination after completed treatment for conditions other than malignant neoplasm | CPT/HCPCS: 36415; 83090; 85210; 85300; 85303; 85306; 85613; 85730; 86146; 86147; 99203 ==

== ENCOUNTER → 2023-04-06 13:23 | Outpatient (BNVA) | payer MEDICARE, MEDICAID, SELFPAY | PROVIDERS: PCP Family Medicine; Visit Provider Family Medicine | DX: M85.80 Other specified disorders of bone density and structure, unspecified site (principal); R79.89 Other specified abnormal findings of blood chemistry | CPT/HCPCS: 82306 ==

== ENCOUNTER → 2023-04-13 08:31 | Outpatient (BNVA) | payer MEDICARE, MEDICAID, SELFPAY | PROVIDERS: PCP Family Medicine; Referring Provider Family Medicine; Visit Provider Surgery | DX: R11.2 Nausea with vomiting, unspecified (principal); K59.09 Other constipation | CPT/HCPCS: 99214 ==

== ENCOUNTER 2023-04-14 13:00 | Outpatient (CLI) | payer MEDICARE, MEDICAID, SELFPAY ==
--- NOTE | 2023-04-14 13:09 | CT_ITS ---
WS: [id number] LDCT LUNG CANCER SCREENING HISTORY: HX OF TOBACCO USE/NICOTINE DEPENDENCE, CIGARETTES TECHNIQUE: Axial imaging performed from the apices to 1 cm below the costophrenic angles. Coronal and sagittal reformats are submitted with axial MIP series. All CT scans at [facility] use at least one of these dose optimization techniques: automated exposure control; mA and/or kV adjustment per patient size (includes targeted exams where dose is matched to clinical indication); or iterativ e reconstruction. DLP: 75.41 mGy.cm DIvol: Mean CTDIvol: 1.60 (mGy) COMPARISON: None available. Diagnostic quality: Satisfactory Lungs: No pulmonary mass or nodule. No pneumonia. No endobronchial lesions. Heart: Normal size heart with no pericardial effusion.. Other findings: Mild atherosclerosis aorta. Normal sized pulmonary artery. There is significant calci fication in the coronary arteries. Heavy calcification in all 3 main coronary arteries. Prior cholecy stectomy. IMPRESSION: CT/CT lung screening [id number] LUNG-RADS: 1S-Negative with Significant Findings FOLLOW UP: 12 Month: Continue annual screening with LDCT OTHER FINDINGS (S MODIFIER): Extensive coronary artery calcifications. Consider evaluation by cardiology if this has not been performed recently.
== END 2023-04-14 13:01 | disposition home or self-care (01) ==
PROVIDERS: PCP Family Medicine; Visit Provider Family Medicine
DX: Z12.2 Encounter for screening for malignant neoplasm of respiratory organs (principal); Z87.891 Personal history of nicotine dependence
CPT/HCPCS: 71271

== ENCOUNTER → 2023-04-21 13:32 | Outpatient (BNVA) | payer MEDICARE, MEDICAID, SELFPAY | PROVIDERS: PCP Family Medicine; Visit Provider Psychiatry & Neurology Neurology | DX: I63.9 Cerebral infarction, unspecified (principal); F17.210 Nicotine dependence, cigarettes, uncomplicated; I10 Essential (primary) hypertension | CPT/HCPCS: 99212 ==

== ENCOUNTER 2023-04-25 11:14 | Emergency (ER) | payer MEDICARE, MEDICAID, SELFPAY ==
[2023-04-25 11:48] VITALS: BP 141/93; PULSE 83; RESP 16; TEMP 36.8; O2SAT 99; BMI 26.3
[2023-04-25 11:55] VITALS: BP 141/93; PULSE 77; O2SAT 97
--- NOTE | 2023-04-25 12:10 | XRR_ITS ---
PROCEDURE INFORMATION: Exam: XR Right Shoulder Exam date and time: 04/25/2023 12:18 PM Age: 67 years old Clinical indication: Injury or trauma; Fall; Blunt trauma (contusions or hematomas); Shoulder; Right; Additional info: Shoulder pain TECHNIQUE: Imaging protocol: Radiologic exam of the right shoulder. Views: 2 or more views. COMPARISON: CT lung screening [id number] 04/14/2023 1:17 PM FINDINGS: Bones/joints: No fracture or dislocation. Mild degenerative changes. Soft tissues: No acute findings. Soft tissue calcifications adjacent to the humeral head. XR/XR shoulder RT min 2V* [id number] IMPRESSION: Mild osteoarthritic degenerative changes without acute findings. Findings of calcific tendinosis.
--- NOTE | 2023-04-25 12:10 | W.ED.EXTPRO ---
HPI - Extremity Problem General: Chief complaint: Extremity Injury, Upper Stated complaint: Fell, hurt right shoulder Time Seen by Provider: 04/25/23 11:17 History of Present Illness: 67-year-old female presents to the emergency department with complaints of right shoulder pain. She states she tripped over her dog 2 days ago while at her house and fell on her right outstretched arm. She denies loss of consciousness. She states that since that time the shoulder has become more painful and tender to touch to the anterior portion and superior lateral portion. She has increased pain with Abduction. She denies numbness or tingling to the extremity. She denies decrease in muscle strength. She states her current pain if she is not moving is a 1 out of 10 but if she attempts to move or touches the shoulder it becomes a 8 out of 10. Review of Systems General: Reports: 10 or more systems reviewed and unremarkable except in HPI and below Musc: Reports: extremity pain and joint pain PFSH ED PFSH: Medical History Bradycardia Constipation COPD (chronic obstructive pulmonary disease) Diabetes mellitus High risk for hip fracture HTN (hypertension) Hyperlipidemia Hypothyroidism Hypothyroidism, postsurgical Osteopenia Sleep apnea Surgical History History of cholecystectomy History of dilatation and curettage History of total hysterectomy with bilateral salpingo-oophorectomy (BSO) benign pathology Family History Father Alcoholism Cancer lung Heart disease Hypertension Mother Hypertension Sister Heart disease Hypertension Brother Heart disease Hypertension CAD (coronary artery disease) Diabetes Denies family history of Anesthesia complication Bleeding disorder Social History Smoking and tobacco/nicotine status: current every day tobacco/nicotine user cigarettes Packs smoked per day: 1 Years cigarettes smoked: 54 Quit status (tobacco/nicotine): has tried quititng Alcohol intake: never Substance/Drug Use: former Date of last use: 35 years ago, cocaine, no hx iv drugs Adopted: Yes Household members: family Marital status: Number of children: 3 Number of grandchildren: 5 Current occupational status: retired 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 Vital signs reviewed as documented. HENMT: Normocephalic, atraumatic. External ears with normal appearance without drainage. Nose without drainage, normal appearance. Mucus membranes moist. Neck is supple, No jugular venous distension, trachea is midline, no appreciable carotid bruits. No lymphadenopathy. No meningeal signs. Flexion, extension and lateral rotation is without pain. Eyes: Pupils are equal, round, reactive to light and accommodation. No scleral icterus. Extra-ocular movement are intact. Thorax is symmetrical and with equal rise and fall with respirations. Resp: Lungs are clear to auscultation. No wheezes, rales, crackles or ronchi at present. Cardio: Regular rate and rhythm. Positive S1, S2. No appreciable murmurs, rubs or gallops. GI: Abdominal exam reveals normal bowel sounds to all quadrants. No organomegaly. No obvious palpable masses noted. No hepatomegally appreciated. Soft, nontender to palpation. Extremity: Extremities are non-edematous and both femoral and pedal pulses are 2+ and equal bilaterally. Pain with abduction and abduction of the right upper extremity. Tender to palpation to the superior lateral and anterior aspect of the right humerus. The remainder of the extremities she moves well, sensation in all extremities. Neuro: Alert and oriented x4, person, place, time and situation. Cranial nerves II through XII are grossly intact, there is no focal neurological deficits that I can appreciate at present. Motor strength in the upper and lower extremities are equal and bilateral 5/5. Psych: Cooperative, calm, normal thought process, appropriate judgment. Skin: No lesions, rashes. No gross abnormalities noted. Back: Symmetrical, no obvious deformity, No CVA tenderness Course Vital Signs: Vital signs: Vital Signs Temperature 98.2 F 04/25/23 11:48 Pulse Rate 83 04/25/23 12:27 Respiratory Rate 16 04/25/23 11:48 Blood Pressure 137/92 04/25/23 12:27 Pulse Oximetry 96 04/25/23 12:27 Oxygen Delivery Me thod Room Air 04/25/23 12:27 MDM - Extremity (Nontraumatic) Medical Decision Making Physical exam completed and documented, I will obtain a radiograph examination of the right shoulder I suspect most likely she is injured her rotator cuff or has a labrum tear. We will evaluate for bony abnormality. I will provide her with pain medication at the time of discharge and have her follow-up with her primary care physician or orthopedic physician. We will provide her a sling to improve her comfort and provide her discharge instructions as well as pain medication prescription. Medical Records I reviewed the patient's medical records. Lab Data Radiology Impressions Shoulder X-Ray 04/25/23 12:10 IMPRESSION: Mild osteoarthritic degenerative changes without acute findings. Findings of calcific tendinosis. All radiology interpretation(s) finalized by discharge Discharge Plan Discharge Patient Disposition: Home Clinical Impression: Muscle strain of right shoulder, Accidental fall, Acute pain of right shoulder, Osteoarthritis of acromioclavicular joint Condition: Stable Prescriptions: New tramadol 50 mg tablet 50 mg PO Q12H PRN (Reason: pain) Qty: 14 0RF No Action epinephrine [EpiPen 2-Isacc] 0.3 mg/0.3 mL auto-injector 0.3 mg IM Q4H PRN (Reason: anaphylaxis) Qty: 2 0RF bupropion HCl 150 mg tablet sustained-release 12 hr 150 mg PO DAILY Qty: 90 0RF levothyroxine 100 mcg capsule 100 mcg PO QAM Qty: 90 0RF ondansetron 4 mg tablet,disintegrating 4 mg PO Q8H PRN (Reason: nausea and vomiting) Qty: 10 0RF valsartan 320 mg tablet 160 mg PO QAM rosuvastatin 40 mg tablet 40 mg PO QPM Qty: 90 0RF albuterol sulfate 90 mcg/actuation HFA aerosol inhaler 2 puff inhalation Q6H PRN (Reason: shortness of breath or wheezing) Qty: 8.5 11RF RSVPreF3 antigen-AS01E (PF) 120 mcg/0.5 mL suspension for reconstitution 120 mcg IM ONCE Qty: 1 0RF ropinirole 0.25 mg tablet 0.25 mg PO DAILY PRN (Reason: restless legs) Ozempic 0.25 mg or 0.5 mg (2 mg/3 mL) pen injector 0.25 mg SUBCUT Q7D Hold Instructions: Doctor's Order (DME) cpap supplies See Rx Instructions .Route .MEDSUPPLY Qty: 1 0RF Rx Instructions: As directed nicotine 21 mg/24 hr patch 24 hour 1 patch transdermal DAILY Qty: 28 0RF aspirin 81 mg Tablet,Delayed Release (Dr/Ec) 81 mg PO DAILY Qty: 90 0RF Discharge Orders: Discharge ED (Routine); Ordered 04/25/23 Ordered By: Bj Oscar Referrals: Mercy Garcia MD [Primary Care Provider] - Discharge Diet: Advance as tolerated Discharge Activity: Resume usual activity Patient Instructions: Opioid Safety, Pain Management Activity Restrictions/Additional Instructions: Activity Restrictions/Additional Instructions: Thank you for choosing [facility] for your healthcare needs today. Please realize that you were seen in the Emergency Department and that we are providing you with an emergency medical screening exam and this may not be complete and all inclusive of all the testing and or medical work-up that you may need to determine your ailment or severity of your illness. It is very important that you follow-up as instructed with your Primary care provider or Specialist for additional evaluation and to discuss your medical treatment plan. You may return to the Emergency Department should you have concerns or if your condition changes or worsens in any way. Coding Level of Care Code ED Carton Inspector for Anibal Guzman
[2023-04-25 12:27] VITALS: BP 137/92; PULSE 83; O2SAT 96
[2023-04-25 13:34] VITALS: BP 134/90; PULSE 84; RESP 17; O2SAT 97
== END 2023-04-25 13:35 | disposition home or self-care (01) ==
PROVIDERS: Emergency Provider Internal Medicine; PCP Family Medicine
DX: S46.911A Strain of unspecified muscle, fascia and tendon at shoulder and upper arm level, right arm, initial encounter (principal); M19.011 Primary osteoarthritis, right shoulder; Z79.82 Long term (current) use of aspirin; F17.210 Nicotine dependence, cigarettes, uncomplicated; J44.9 Chronic obstructive pulmonary disease, unspecified; E11.9 Type 2 diabetes mellitus without complications; I10 Essential (primary) hypertension; E78.5 Hyperlipidemia, unspecified; W01.0XXA Fall on same level from slipping, tripping and stumbling without subsequent striking against object, initial encounter
CPT/HCPCS: 73030; 99283

== ENCOUNTER 2023-05-14 09:28 | Day surgery (SDC) | payer MEDICARE, MEDICAID, SELFPAY ==
[2023-05-14 09:50] VITALS: BP 147/102; PULSE 71; RESP 18; TEMP 36.9; O2SAT 91
[2023-05-14] MEDS: sodium chloride 0.9% 1,000 ML 30 ML IV (10:10)
[2023-05-14 10:13] LABS: Glucose Point of Care 120 mg/dL (70-110)
--- NOTE | 2023-05-14 10:18 | ANES.PREANE2 ---
Pre-Anesthetic Assessment Height/Weight: Height 1.68 m Weight 73.936 kg Temp Pulse Resp BP Pulse Ox O2 Del Method 98.4 F 71 18 147/102 91 Room Air 05/14/23 09:50 05/14/23 09:50 05/14/23 09:50 05/14/23 09:50 05/14/23 09:50 05/14/23 09:50 Preop Diagnosis: N&V Operation Date: 05/14/23 10:30 Proposed Procedures p 11163 colon G0121 screen colon A risk R11.2,K59.09,Z12.11 EGD 35471(Not Applicable) - Kelton Strong DO s EGD(Not Applicable) - Kelton Strong DO Familial anesthetic complications: none Was Beta Yanick taken within 24 hours: N/A Was Clonidine taken within 24 hours: N/A Last intake: Intake Last Liquid Date 05/13/23 Last Liquid Time 22:30 Last Solid Date 05/12/23 Last Solid Time 18:00 Social Tobacco and No alcohol 1 pack(s) per day 54 pack years Exam alert, oriented x 3, clear to auscultation bilaterally and regular rate & rhythm Airway Submandibular: within normal limits Cervical ROM: within normal limits Mallampati: Class I Dentition: false Pulmonary Chronic Obstructive Pulmonary Disease, Cough and Sleep Apnea CV/HEM Hypertension None reported Hepatic None reported GI None reported Metabolic Diabetes Mellitus (II), Hyperlipidemia and Thyroid Disease Musc/skel Lower Back Pain and Osteoarthritis/DJD Neuropsych Anxiety, Depression and Transient Ischemic Attack Anesthetic Plan ASA status: 3 Anesthesia: MAC Risk of > 500 ml blood loss (7ml/kg in children): No Medications/Allergies Home Medications Medication Instructions Recorded Confirmed Last Taken Type ropinirole 0.25 mg tablet 0.25 mg PO DAILY PRN restless legs 09/28/22 05/12/23 05/12/23 History epinephrine 0.3 mg/0.3 mL 0.3 mg (0.3 mL) IM Q4H PRN 12/21/22 05/12/23 05/12/23 Rx injection, auto-injector (EpiPen anaphylaxis #2 ea 2-Isacc) semaglutide 0.25 mg or 0.5 mg (2 0.25 mg SUBCUT Q7D 01/07/23 05/12/23 05/12/23 History mg/3 mL) subcutaneous pen injector (Ozempic) cpap supplies #1 ea 01/15/23 05/12/23 05/12/23 Rx aspirin 81 mg tablet,delayed 81 mg PO DAILY #90 tabs 03/16/23 05/12/23 05/12/23 Rx release nicotine 21 mg/24 hr daily 1 patch transdermal DAILY #28 ea 03/19/23 05/12/23 05/12/23 Rx transdermal patch albuterol sulfate 90 mcg/actuation 2 puff inhalation Q6H PRN 04/06/23 05/12/23 05/12/23 Rx aerosol inhaler shortness of breath or wheezing #8.5 grams bupropion HCl 150 mg tablet,12 hr 150 mg PO DAILY #90 tabs 04/06/23 05/12/23 05/12/23 Rx sustained-release levothyroxine 100 mcg capsule 100 mcg PO QAM #90 caps 04/06/23 05/12/23 05/12/23 Rx ondansetron 4 mg disintegrating 4 mg PO Q8H PRN nausea and 04/06/23 05/12/23 05/12/23 Rx tablet vomiting #10 tabs rosuvastatin 40 mg tablet 40 mg PO QPM #90 tabs 04/06/23 05/12/23 05/12/23 Rx valsartan 320 mg tablet 160 mg PO QAM 04/06/23 05/12/23 05/12/23 History tramadol 50 mg tablet 50 mg PO Q12H PRN pain #14 tabs 04/25/23 05/12/23 05/12/23 Rx Allergies Allergy/AdvReac Type Severity Reaction Status Date / Time Sulfa (Sulfonamide Allergy Unknown hives, Verified 04/25/23 11:53 Antibiotics) lips swelling naproxen AdvReac Severe breaks out Verified 04/25/23 11:53 in hives, lips and mouth start swelling Current Medications Generic Name Dose Route Start Last Admin Trade Name Freq PRN Reason Stop Dose Admin Sodium Chloride 1,000 mls @ 30 mls/hr 05/14/23 09:45 05/14/23 10:10 Sodium Chloride 0.9% IV 05/15/23 09:44 30 mls/hr .Q24H IRENE Administration PFSH Anesthesia Medical History Bradycardia Constipation COPD (chronic obstructive pulmonary disease) Diabetes mellitus High risk for hip fracture HTN (hypertension) Hyperlipidemia Hypothyroidism Hypothyroidism, postsurgical Osteopenia Sleep apnea Surgical History History of cholecystectomy History of dilatation and curettage History of total hysterectomy with bilateral salpingo-oophorectomy (BSO) benign pathology Family History Father Alcoholism Cancer lung Heart disease Hypertension Mother Hypertension Sister Heart disease Hypertension Brother Heart disease Hypertension CAD (coronary artery disease) Diabetes Denies family history of Anesthesia complication Bleeding disorder Social History Smoking and tobacco/nicotine status: current every day tobacco/nicotine user cigarettes Packs smoked per day: 1 Years cigarettes smoked: 54 Quit status (tobacco/nicotine): has tried quititng Alcohol intake: never Substance/Drug Use: former Date of last use: 35 years ago, cocaine, no hx iv drugs Adopted: Yes Household members: family Marital status: Number of children: 3 Number of grandchildren: 5 Current occupational status: 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
--- NOTE | 2023-05-14 11:05 | PM.HP ---
Providers/Chief Complaint Primary Care Provider: Mercy Garcia MD Chief Complaint: R11.2, K59.09, Z12.11 History of Present Illness Génesis Titus is a 67 year old female Review of Systems General: Reports: 10 or more systems reviewed and unremarkable except in HPI and below Medications/Allergies Home Medications Medication Instructions Recorded Confirmed Last Taken Type ropinirole 0.25 mg tablet 0.25 mg PO DAILY PRN restless legs 09/28/22 05/12/23 05/12/23 History epinephrine 0.3 mg/0.3 mL 0.3 mg (0.3 mL) IM Q4H PRN 12/21/22 05/12/23 05/12/23 Rx injection, auto-injector (EpiPen anaphylaxis #2 ea 2-Isacc) semaglutide 0.25 mg or 0.5 mg (2 0.25 mg SUBCUT Q7D 01/07/23 05/12/23 05/12/23 History mg/3 mL) subcutaneous pen injector (Ozempic) cpap supplies #1 ea 01/15/23 05/12/23 05/12/23 Rx aspirin 81 mg tablet,delayed 81 mg PO DAILY #90 tabs 03/16/23 05/12/23 05/12/23 Rx release nicotine 21 mg/24 hr daily 1 patch transdermal DAILY #28 ea 03/19/23 05/12/23 05/12/23 Rx transdermal patch albuterol sulfate 90 mcg/actuation 2 puff inhalation Q6H PRN 04/06/23 05/12/23 05/12/23 Rx aerosol inhaler shortness of breath or wheezing #8.5 grams bupropion HCl 150 mg tablet,12 hr 150 mg PO DAILY #90 tabs 04/06/23 05/12/23 05/12/23 Rx sustained-release levothyroxine 100 mcg capsule 100 mcg PO QAM #90 caps 04/06/23 05/12/23 05/12/23 Rx ondansetron 4 mg disintegrating 4 mg PO Q8H PRN nausea and 04/06/23 05/12/23 05/12/23 Rx tablet vomiting #10 tabs rosuvastatin 40 mg tablet 40 mg PO QPM #90 tabs 04/06/23 05/12/23 05/12/23 Rx valsartan 320 mg tablet 160 mg PO QAM 04/06/23 05/12/23 05/12/23 History tramadol 50 mg tablet 50 mg PO Q12H PRN pain #14 tabs 04/25/23 05/12/23 05/12/23 Rx Allergies Allergy/AdvReac Type Severity Reaction Status Date / Time Sulfa (Sulfonamide Allergy Unknown hives, Verified 04/25/23 11:53 Antibiotics) lips swelling naproxen AdvReac Severe breaks out Verified 04/25/23 11:53 in hives, lips and mouth start swelling PFSH Acute PFSH: Medical History Bradycardia Constipation COPD (chronic obstructive pulmonary disease) Diabetes mellitus High risk for hip fracture HTN (hypertension) Hyperlipidemia Hypothyroidism Hypothyroidism, postsurgical Osteopenia Sleep apnea Surgical History History of cholecystectomy History of dilatation and curettage History of total hysterectomy with bilateral salpingo-oophorectomy (BSO) benign pathology Family History Father Alcoholism Cancer lung Heart disease Hypertension Mother Hypertension Sister Heart disease Hypertension Brother Heart disease Hypertension CAD (coronary artery disease) Diabetes Denies family history of Anesthesia complication Bleeding disorder Social History Smoking and tobacco/nicotine status: current every day tobacco/nicotine user cigarettes Packs smoked per day: 1 Years cigarettes smoked: 54 Quit status (tobacco/nicotine): has tried quititng Alcohol intake: never Substance/Drug Use: former Date of last use: 35 years ago, cocaine, no hx iv drugs Adopted: Yes Household members: family Marital status: Number of children: 3 Number of grandchildren: 5 Current occupational status: retired 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
[2023-05-14 12:00] VITALS: BP 147/102; PULSE 61; RESP 18; TEMP 36.9; O2SAT 97
[2023-05-14 12:14] VITALS: BP 128/98; PULSE 63; RESP 18; O2SAT 96
[2023-05-14 12:29] VITALS: BP 125/77; PULSE 62; RESP 18; O2SAT 99
--- NOTE | 2023-05-14 14:48 | ANE.PACU2 ---
Inpatient post-anesthesia follow up: Airway intact: Yes Vital signs: Temperature 98.4 F Pulse Rate 62 Respiratory Rate 18 Blood Pressure 125/77 Pulse Oximetry 99 Oxygen Delivery Me thod Room Air Oxygen Flow Rate 3 Fraction of Inspir ed Oxygen Hydration adequate: Yes Nausea and vomiting: No Pain level: 2 Mental status: Baseline
== END 2023-05-14 12:40 | disposition home or self-care (01) ==
PROVIDERS: PCP Family Medicine; Visit Provider Surgery
PROC: 0DJD8ZZ Inspection of Lower Intestinal Tract, Via Natural or Artificial Opening Endoscopic (ICD-10-PCS; CPT 45378; principal; 2023-05-14 10:30)
PROC: 0DJ08ZZ Inspection of Upper Intestinal Tract, Via Natural or Artificial Opening Endoscopic (ICD-10-PCS; CPT 43235; 2023-05-14 10:30)
DX: K59.09 Other constipation (principal); R11.2 Nausea with vomiting, unspecified; D12.5 Benign neoplasm of sigmoid colon; K29.50 Unspecified chronic gastritis without bleeding; K57.30 Diverticulosis of large intestine without perforation or abscess without bleeding; J44.9 Chronic obstructive pulmonary disease, unspecified; E78.5 Hyperlipidemia, unspecified; Z86.73 Personal history of transient ischemic attack (TIA), and cerebral infarction without residual deficits; E11.9 Type 2 diabetes mellitus without complications; E03.9 Hypothyroidism, unspecified; G47.30 Sleep apnea, unspecified; F17.210 Nicotine dependence, cigarettes, uncomplicated
CPT/HCPCS: 36416; 43239; 45385; 82962; 88305; 88342; J2704; J7030

== ENCOUNTER → 2023-06-08 10:27 | Outpatient (BNVA) | payer MEDICARE, MEDICAID, SELFPAY | PROVIDERS: PCP Family Medicine; Visit Provider Surgery | DX: Z09 Encounter for follow-up examination after completed treatment for conditions other than malignant neoplasm (principal) | CPT/HCPCS: 99213 ==

== ENCOUNTER 2023-07-12 15:57 | Outpatient (CLI) | payer MEDICARE, MEDICAID, SELFPAY ==
--- NOTE | 2023-07-12 16:00 | USR_ITS ---
PROCEDURE INFORMATION: Exam: US Duplex Left Lower Extremity Veins, Limited Exam date and time: 07/12/2023 4:31 PM Age: 68 years old Clinical indication: Pain; Leg, lower; Left; Additional info: Acute left calf pain TECHNIQUE: Imaging protocol: Real-time duplex ultrasound of the left extremity with 2-D varela scale, color Doppler flow and spectral waveform analysis including responses to compression and other maneuvers (when performed) with image documentation. Limited exam focused on the left lower extremity veins. COMPARISON: No relevant prior studies available. FINDINGS: Left deep veins: Unremarkable. The common femoral, femoral, proximal profunda femoral and popliteal veins as well as the visualized deep veins of the lower leg are patent without thrombus. There is segmental dilation of a peroneal vein. Normal Doppler waveforms. Normal compressibility and/or augmentation response. Superficial veins: Unremarkable. Saphenofemoral junction is patent without thrombus. Soft tissues: Unremarkable. US/CV venous duplex [facility] [id number] IMPRESSION: No evidence of deep vein thrombosis.
== END 2023-07-12 15:58 | disposition home or self-care (01) ==
LOC: RAD 15:57
PROVIDERS: PCP Family Medicine; Visit Provider Family Medicine
DX: M79.662 Pain in left lower leg (principal)
CPT/HCPCS: 93971

== ENCOUNTER 2023-08-11 13:09 | Outpatient (CLI) | payer MEDICARE, MEDICAID, SELFPAY ==
--- NOTE | 2023-08-11 13:16 | XRR_ITS ---
PROCEDURE INFORMATION: Exam: XR Left Tibia and Fibula Exam date and time: 08/11/2023 1:25 PM Age: 68 years old Clinical indication: Pain; Lower leg; Left; Additional info: Left leg pain TECHNIQUE: Imaging protocol: Radiologic exam of the left tibia and fibula. Views: 2 views. COMPARISON: [place] [id number] 07/12/2023 4:31 PM FINDINGS: Bones/joints: Knee alignment is normal. The tibia and fibula are intact. Ankle alignment is normal. No knee or ankle joint effusion. Soft tissues: Visible soft tissues are unremarkable. Vasculature: Vascular calcification is present. XR/XR tibia fibula LT 2V [id number] IMPRESSION: No acute findings.
--- NOTE | 2023-08-11 13:16 | XRR_ITS ---
PROCEDURE INFORMATION: Exam: XR Left Femur Exam date and time: 08/11/2023 1:25 PM Age: 68 years old Clinical indication: Pain; Thigh; Left; Additional info: Left leg pain TECHNIQUE: Imaging protocol: Radiologic exam of the left femur. Views: 2 views. COMPARISON: [place] [id number] 07/12/2023 4:31 PM FINDINGS: Bones/joints: Femoroacetabular alignment is normal. Joint space is preserved. The visible portion of the pelvis is intact. The femur is intact. The knee is unremarkable. The visible portions of the proximal tibia and fibula are intact. No acute fracture. No knee effusion. Soft tissues: Visible soft tissues are unremarkable. Vasculature: Vascular calcification is present. XR/XR femur LT min 2V* [id number] IMPRESSION: No acute findings.
== END 2023-08-11 13:10 | disposition home or self-care (01) ==
LOC: RAD 13:12
PROVIDERS: PCP Family Medicine; Visit Provider Family Medicine
DX: M79.605 Pain in left leg (principal)
CPT/HCPCS: 73552; 73590

== ENCOUNTER → 2023-08-16 13:03 | Outpatient (BNVA) | payer MEDICARE, MEDICAID, SELFPAY | PROVIDERS: PCP Family Medicine; Visit Provider Family Medicine | DX: M79.605 Pain in left leg (principal); L60.3 Nail dystrophy; E78.2 Mixed hyperlipidemia; I10 Essential (primary) hypertension; Z79.899 Other long term (current) drug therapy | CPT/HCPCS: 80053; 82306; 82607; 83735; 84443; 85025 ==

== ENCOUNTER 2023-09-08 13:10 | Outpatient (CLI) | payer MEDICARE, MEDICAID, SELFPAY ==
--- NOTE | 2023-09-08 13:30 | MM_ITS ---
WS: [id number] BILATERAL 3D TOMOSYNTHESIS DIGITAL SCREENING MAMMOGRAPHY WITH CAD CLINICAL INFORMATION: breast cancer screening HISTORY: Screening mammogram. No current complaints. COMPARISON: 2022 TECHNIQUE: Bilateral CC and MLO views. FINDINGS: Scattered fibroglandular densities bilaterally. No suspicious focal mass, asymmetry, calcifications, or architectural distortion. No evidence of malignancy. Stable lobulated soft tissue nodule anterior RIGHT breast with biopsy clip. This is stable in appearance. Incidental punctate calcifications. Vasc ular calcifications. Stable cluster calcifications LEFT breast. IMPRESSION: MM/[place] [id number] BI-RADS: 2-Benign FOLLOW UP: 1 Year Follow-up Recommend return to annual screening mammography.
== END 2023-09-08 13:11 | disposition home or self-care (01) ==
LOC: RAD 13:10
PROVIDERS: PCP Family Medicine; Visit Provider Family Medicine
DX: Z12.31 Encounter for screening mammogram for malignant neoplasm of breast (principal)
CPT/HCPCS: 77063; 77067

== ENCOUNTER → 2023-10-21 08:28 | Outpatient (BNVA) | payer MEDICARE, MEDICAID, SELFPAY | PROVIDERS: PCP Family Medicine; Visit Provider Podiatrist Foot & Ankle Surgery | DX: L60.0 Ingrowing nail (principal); L60.3 Nail dystrophy; E11.42 Type 2 diabetes mellitus with diabetic polyneuropathy | CPT/HCPCS: 11750 ==

== ENCOUNTER → 2023-10-26 15:38 | Outpatient (BNVA) | payer MEDICARE, MEDICAID, SELFPAY | PROVIDERS: PCP Family Medicine; Visit Provider Internal Medicine | DX: E78.2 Mixed hyperlipidemia (principal); I73.9 Peripheral vascular disease, unspecified; I10 Essential (primary) hypertension; R07.9 Chest pain, unspecified; F17.210 Nicotine dependence, cigarettes, uncomplicated | CPT/HCPCS: 99214 ==

== ENCOUNTER → 2023-11-04 10:25 | Outpatient (BNVA) | payer MEDICARE, MEDICAID, SELFPAY | PROVIDERS: PCP Family Medicine; Visit Provider Podiatrist Foot & Ankle Surgery | DX: L60.0 Ingrowing nail (principal); Z98.890 Other specified postprocedural states | CPT/HCPCS: 99213 ==

== ENCOUNTER 2023-11-10 13:05 | Outpatient (CLI) | payer MEDICARE, MEDICAID, SELFPAY ==
--- NOTE | 2023-11-10 13:00 | USCV_ITS ---
Génesis Titus Age: 68 Gender: F : 1955 Exam Date: 11/10/2023 13:11 Ordering Phys: Yariel Payan M.D ([email or web address]) Technologist: Exam Location: [facility] [place] Indication: pad ulcer on toe Risk Factors: Previous Vascular Surgery: RIGHT LEFT BP: 120.0 / 65.00 BP: 125.0/ 70.00 0 0 Waveform Velocity (cm/s) Velocity (cm/s) Waveform Triphasic 117.0 Iliac Prox 117.0 Triphasic Triphasic 90.0 Iliac Mid 111.0 Triphasic Triphasic 74.0 Iliac Distal 99.0 Triphasic Triphasic 74.0 POWDERED SUGAR SUPERVISOR 95.0 Triphasic Triphasic 49.0 SFA Prox 77.0 Triphasic Triphasic 80.0 SFA Mid 54.0 Triphasic Triphasic 60.0 SFA Dist 68.0 Triphasic Triphasic 51.0 POP 52.0 Triphasic Monophasic 67.0 BRANCH ACCOUNT MANAGER 61.0 Monophasic Monophasic 62.0 DPA 95.0 Monophasic 0.9 LILLI 1.0 FINDINGS Mild to moderate diffuse plaques in the iliac, femoral and popliteal arteries on the right side. Monophasic and continuous Doppler waveforms in the infrapopliteal vessels on the right side. Mild to moderate diffuse plaque in the iliac, femoral and popliteal arteries on the left side. Monophasic and continuous waveforms in the infrapopliteal vessels Resting LILLI 1.0 on the left and 0.9 on the left CONCLUSIONS 1. Minimally diminished resting LILLI on the right side, suggesting mild peripheral artery disease. 2. Normal resting LILLI on the left side, suggesting no significant arterial obstruction. 3. Abnormal arterial Doppler waveforms in the infrapopliteal vessels, suggesting collateral filling of these results. Clinical correlation recommended. Consider a CTA with runoff to better evaluate the peripheral arteries. Dr Millicent Garg MD [facility] (Electronically Signed) Final Date: 11 November 2023 12:18 S
== END 2023-11-10 13:06 | disposition home or self-care (01) ==
LOC: RAD 13:05
PROVIDERS: PCP Family Medicine; Visit Provider Internal Medicine
DX: I73.9 Peripheral vascular disease, unspecified (principal); R93.6 Abnormal findings on diagnostic imaging of limbs
CPT/HCPCS: 93925

== ENCOUNTER → 2023-11-11 09:28 | Outpatient (BNVA) | payer MEDICARE, MEDICAID, SELFPAY | PROVIDERS: PCP Family Medicine; Visit Provider Podiatrist Foot & Ankle Surgery | DX: Z98.890 Other specified postprocedural states (principal) | CPT/HCPCS: 99213 ==

== ENCOUNTER → 2023-11-23 14:19 | Outpatient (BNVA) | payer MEDICARE, MEDICAID, SELFPAY | PROVIDERS: PCP Family Medicine; Visit Provider Nurse Practitioner Family | DX: L57.0 Actinic keratosis (principal); B07.8 Other viral warts; D17.1 Benign lipomatous neoplasm of skin and subcutaneous tissue of trunk; L82.1 Other seborrheic keratosis; S90.922A Unspecified superficial injury of left foot, initial encounter; X58.XXXA Exposure to other specified factors, initial encounter; D22.5 Melanocytic nevi of trunk; L81.4 Other melanin hyperpigmentation; Z85.820 Personal history of malignant melanoma of skin | CPT/HCPCS: 17000; 17110; 99203 ==

== ENCOUNTER → 2023-11-24 10:00 | Outpatient (BNVA) | payer MEDICARE, MEDICAID, SELFPAY | PROVIDERS: PCP Family Medicine; Visit Provider Podiatrist Foot & Ankle Surgery | DX: Z98.890 Other specified postprocedural states (principal) | CPT/HCPCS: 99213 ==

== ENCOUNTER → 2023-11-30 10:30 | Outpatient (BNVA) | payer MEDICARE, MEDICAID, SELFPAY | PROVIDERS: PCP Family Medicine; Visit Provider Podiatrist Foot & Ankle Surgery | DX: Z98.890 Other specified postprocedural states (principal); L97.522 Non-pressure chronic ulcer of other part of left foot with fat layer exposed | CPT/HCPCS: 99213 ==

== ENCOUNTER → 2023-12-08 10:18 | Outpatient (BNVA) | payer MEDICARE, MEDICAID, SELFPAY | PROVIDERS: PCP Family Medicine; Visit Provider Podiatrist Foot & Ankle Surgery | DX: M79.672 Pain in left foot (principal); Z98.890 Other specified postprocedural states | CPT/HCPCS: 73630 ==

== ENCOUNTER → 2023-12-14 09:45 | Outpatient (BNVA) | payer MEDICARE, MEDICAID, SELFPAY | PROVIDERS: PCP Family Medicine; Visit Provider Podiatrist Foot & Ankle Surgery | DX: L97.522 Non-pressure chronic ulcer of other part of left foot with fat layer exposed (principal); Z98.890 Other specified postprocedural states | CPT/HCPCS: 99213 ==

== ENCOUNTER → 2023-12-15 13:27 | Outpatient (BNVA) | payer MEDICARE, MEDICAID, SELFPAY | PROVIDERS: PCP Family Medicine; Visit Provider Dermatology | DX: D48.5 Neoplasm of uncertain behavior of skin (principal) | CPT/HCPCS: 11406; 12034 ==

== ENCOUNTER → 2023-12-29 10:29 | Outpatient (BNVA) | payer MEDICARE, MEDICAID, SELFPAY | PROVIDERS: PCP Family Medicine; Visit Provider Podiatrist Foot & Ankle Surgery | DX: L97.522 Non-pressure chronic ulcer of other part of left foot with fat layer exposed (principal); Z98.890 Other specified postprocedural states | CPT/HCPCS: 99213 ==

== ENCOUNTER → 2024-01-14 13:06 | Outpatient (BNVA) | payer MEDICARE, MEDICAID, SELFPAY | PROVIDERS: PCP Family Medicine; Visit Provider Family Medicine | DX: Z01.818 Encounter for other preprocedural examination (principal); E89.0 Postprocedural hypothyroidism; M25.50 Pain in unspecified joint | CPT/HCPCS: 80053; 81015; 84443; 86618; 86666; 86757 ==

== ENCOUNTER 2024-01-20 15:14 | Outpatient (CLI) | payer MEDICARE, MEDICAID, SELFPAY ==
--- NOTE | 2024-01-20 15:22 | XR_ITS ---
WS: [id number] SCREENING DEXA SCAN [employer] CLINICAL INFORMATION: AYSMPTOMATIC MENOPAUSAL STATE COMPARISON: 2021 FINDINGS: The L1-L4 bone mineral density measures 1.139 g/cm2. This corresponds to a T score score of -0.3 and Z score of 0.5. Left femoral neck bone mineral density measures 0.780 g/cm2. This corresponds to a T score of -1.8 an d Z score of -0.9. Right femoral neck bone mineral density measures 0.785 g/cm2. This corresponds to a T score -1.8of an d Z score of -0.9. Mean femoral neck bone mineral density measures 0.783 g/cm2. This corresponds to a T score of -1.8 an d Z score of -0.9. XR/XR DEXA axial skeleton* [id number] IMPRESSION: Normal bone mineralization lumbar spine. Osteopenia femoral necks. Patient's FRAX calculated 10 year probability for major osteoporotic fracture i s 24.4% and osteoporotic hip fracture is 9.3%. Bone mineral density lumbar spine increased 14.1% Bone mineral density femoral necks decreased -7.2%
== END 2024-01-20 15:15 | disposition home or self-care (01) ==
LOC: RAD 15:15
PROVIDERS: PCP Family Medicine; Visit Provider Nurse Practitioner Family
DX: Z78.0 Asymptomatic menopausal state (principal); M85.88 Other specified disorders of bone density and structure, other site
CPT/HCPCS: 77080

== ENCOUNTER → 2024-02-22 10:33 | Outpatient (BNVA) | payer MEDICARE, MEDICAID, SELFPAY | PROVIDERS: PCP Family Medicine; Visit Provider Nurse Practitioner Family | DX: S90.122A Contusion of left lesser toe(s) without damage to nail, initial encounter (principal); X58.XXXA Exposure to other specified factors, initial encounter; L81.4 Other melanin hyperpigmentation; D22.9 Melanocytic nevi, unspecified; Z85.820 Personal history of malignant melanoma of skin | CPT/HCPCS: 99213 ==

== ENCOUNTER 2024-04-29 14:39 | Emergency (ER) | payer MEDICARE, MEDICAID, SELFPAY ==
[2024-04-29 15:17] VITALS: BP 92/65; PULSE 84; RESP 22; TEMP 36.5; O2SAT 95; BMI 24.7
--- NOTE | 2024-04-29 15:51 | ED_ITS ---
HPI - Abdominal Pain 2 General: Chief Complaint: Abdominal Pain Stated Complaint: abd pain Time Seen by Provider: 04/29/24 15:41 History of Present Illness: 68-year-old female who presents emergenc y room with right-sided abdominal pain. Has been present for about 4 days. She gone to her doctor told her to go to the ER but the pain had gotten better until this morning when she ate again and then it started hurting again. She has had some nausea but no vomiting. She has had her gallbladder out in the past. No dysuria. No hematuria. Says the pain is on the right lower abdomen and into her right back. No known fevers. Related Data Home Medications Medication Instructions Recorded Confirmed ropinirole 0.25 mg tablet 0.25 mg PO DAILY PRN restless legs 09/28/22 02/15/24 clopidogrel 75 mg tablet 75 mg PO DAILY 08/11/23 02/15/24 aripiprazole 2 mg tablet 2 mg PO DAILY 10/12/23 02/15/24 Previous Rx's Medication Instructions Recorded epinephrine 0.3 mg/0.3 mL 0.3 mg (0.3 mL) IM Q4H PRN 12/21/22 injection, auto-injector (EpiPen anaphylaxis #2 ea 2-Isacc) cpap supplies #1 ea 01/15/23 aspirin 81 mg tablet,delayed 81 mg PO DAILY #90 tabs 03/16/23 release albuterol sulfate 90 mcg/actuation 2 puff inhalation Q6H PRN 04/06/23 aerosol inhaler shortness of breath or wheezing #8.5 grams ondansetron 4 mg disintegrating 4 mg PO Q8H PRN nausea and 04/06/23 tablet vomiting #10 tabs tramadol 50 mg tablet 50 mg PO Q12H PRN pain #14 tabs 04/25/23 rosuvastatin 40 mg tablet 40 mg PO QPM #90 tabs 05/20/23 triamcinolone acetonide 0.1 % 1 applic topical DAILY #60 mL 05/20/23 lotion bupropion HCl 150 mg tablet,12 hr See Rx Instructions .Route 08/10/23 sustained-release .COMPLEX #90 tabs valsartan 80 mg tablet See Rx Instructions .Route 10/11/23 .COMPLEX #30 tabs mupirocin 2 % topical ointment 1 applic topical BID 2 weeks #22 10/21/23 grams semaglutide 0.25 mg or 0.5 mg (2 See Rx Instructions .Route 12/20/23 mg/3 mL) subcutaneous pen injector .COMPLEX #3 mL (Ozempic) levothyroxine 88 mcg capsule 88 mcg PO QAM #60 caps 02/21/24 Allergies Allergy/AdvReac Type Severity Reaction Status Date / Time Sulfa (Sulfonamide Allergy Unknown hives, Verified 04/29/24 15:24 Antibiotics) lips swelling naproxen AdvReac Severe breaks out Verified 04/29/24 15:24 in hives, lips and mouth start swelling Review of Systems 2 Narrative: Constitutional symptoms: Negative except as documented in HPI. Skin symptoms: Negative except as documented in HPI. Eye symptoms: Negative except as documented in HPI. ENMT symptoms: Negative except as documented in HPI. Respiratory symptoms: Negative except as documented in HPI. Cardiovascular symptoms: Negative except as documented in HPI. Gastrointestinal symptoms: Negative except as documented in HPI. Genitourinary symptoms: Negative except as documented in HPI. Musculoskeletal symptoms: Negative except as documented in HPI. Neurologic symptoms: Negative except as documented in HPI. Psychiatric symptoms: Negative except as documented in HPI. Endocrine symptoms: Negative except as documented in HPI. PFSH ED 2 PFSH: Medical History Diverticula of colon Hypothyroidism, postsurgical Constipation Osteopenia High risk for hip fracture Diabetes mellitus Bradycardia Hypothyroidism Sleep apnea COPD (chronic obstructive pulmonary disease) Hyperlipidemia HTN (hypertension) Surgical History History of total hysterectomy with bilateral salpingo-oophorectomy (BSO) benign pathology History of dilatation and curettage History of cholecystectomy Family History Father Alcoholism Cancer lung Heart disease Hypertension Mother Hypertension Sister Heart disease Hypertension Brother Heart disease Hypertension CAD (coronary artery disease) Diabetes Denies family history of Anesthesia complication Bleeding disorder Social History Smoking and tobacco/nicotine status: current every day tobacco/nicotine user cigarettes Packs smoked per day: 1 Years cigarettes smoked: 54 Quit status (tobacco/nicotine): has tried quititng Alcohol intake: never Substance/Drug Use: former Date of last use: 35 years ago, cocaine, no hx iv drugs Adopted: Yes Household members: family Marital status: Number of children: 3 Number of grandchildren: 5 Current occupational status: retired 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 Skin: Warm, dry. Head: Normocephalic, atraumatic. Neck: Supple, trachea midline. Eye: Extraocular movements are intact. Ears, nose, mouth and throat: mucosa moist. Cardiovascular: Regular, Normal peripheral perfusion. Respiratory: Lungs are clear to auscultation, respirations are non-labored, breath sounds are equal, Symmetrical chest wall expansion. Gastrointestinal: Soft, Nontender, Non distended Musculoskeletal: Normal ROM, no deformity. Neurological: Alert and oriented, No focal neurological deficit observed. Psychiatric: Cooperative, appropriate mood & affect. Course 2 Vital Signs: Vital signs: Vital Signs Temperature 97.7 F 04/29/24 15:17 Pulse Rate 78 04/29/24 17:29 Respiratory Rate 17 04/29/24 17:29 Blood Pressure 105/89 04/29/24 17:29 Pulse Oximetry 95 04/29/24 17:29 Oxygen Delivery Me thod Room Air 04/29/24 17:29 MDM - Abdominal Pain Medical Decision Making Medical decision making: Differential diagnosis for this patient with right lower quadrant abdominal pain including but not limited to and based on the above HPI, review of systems and physical exam: Ureterolithiasis. Urinary tract infection. Appendicitis. colitis. small bowel obstruction. Crohn's flare. Pancreatitis. Cholelithiasis or cholecystitis. Hepatitis. Diverticulitis. Constipation. ovarian cyst. ovarian torsion Workup: Orders were placed to evaluate differential diagnosis based on the above differential, HPI and exam: Lab Review: Laboratory results were reviewed and interpreted by myself the emergency room physician. No leukocytosis. No anemia. Mild stable renal insufficiency with a BUN and creatinine of 14 and 1.3. She did receive contrast so I gave her some fluids afterwards with her chronic renal insufficiency. CT of the abdomen pelvis shows no acute processes. This was reviewed and interpreted by myself the emergency room physician. I also reviewed the radiology report. I reviewed the patient's medical record Reexamination: Patient remained stable. No increased work of breathing. No altered mental status. No focal motor deficits. Patient says pain has resolved. Discussed this may have been a small passed kidney stone as there was a small amount of blood in her urine. Assessment and plan: Abdominal pain - Discharged home - Discussed findings and plan with patient. Answered any questions. - All laboratory values were reviewed and interpreted personally by myself, the ER physician - All imaging was reviewed and interpreted personally by myself, the ER physician. - Evaluation and treatment of this problem were appropriate in the emergency setting Lab Data 04/29/24 16:20 04/29/24 16:20 Labs/Radiology: Radiology Impressions Abdomen/Pelvis CT 04/29/24 17:09 IMPRESSION: No acute intra-abdominal or intrapelvic process. Incidental/chronic findings as above. Laboratory Results WBC 7.31 10^3/uL (3.29-11.43) 04/29/24 16:20 RBC 5.09 10^6/uL (3.85-5.65) 04/29/24 16:20 Hgb 15.00 g/dL (11.27-16.99) 04/29/24 16:20 Hct 46.6 % (36-47) 04/29/24 16:20 MCV 91.6 fl (85-98) 04/29/24 16:20 MCH 29.5 pg (27-33) 04/29/24 16:20 MCHC 32.2 g/dL (30-55) 04/29/24 16:20 RDW 14.3 % (12.1-15.1) 04/29/24 16:20 Plt Count 288 10^3/cmm (157-399) 04/29/24 16:20 MPV 10.9 fL (7.4-10.4) H 04/29/24 16:20 Neut % (Auto) 58.0 % 04/29/24 16:20 Lymph % (Auto) 30.2 % 04/29/24 16:20 Sharp % (Auto) 8.6 % 04/29/24 16:20 Eos % (Auto) 2.2 % 04/29/24 16:20 Baso % (Auto) 0.7 % 04/29/24 16:20 Neut # (Auto) 4.24 10^3/uL (1.8-7.7) 04/29/24 16:20 Lymph # (Auto) 2.2 10^3/uL (0.8-4.8) 04/29/24 16:20 Sharp # (Auto) 0.6 10^3/uL (0.2-0.9) 04/29/24 16:20 Eos # (Auto) 0.2 10^3/uL (0.0-0.8) 04/29/24 16:20 Baso # (Auto) 0.1 10^3/uL (0.0-0.1) 04/29/24 16:20 Nucleated RBC % (auto) 0 % 04/29/24 16:20 Nucleated RBCs # 0.0 /100WBC 04/29/24 16:20 Sodium 138 mmol/L (136-145) 04/29/24 16:20 Potassium 3.9 mmol/L (3.5-5.1) 04/29/24 16:20 Chloride 100 mmol/L (98-107) 04/29/24 16:20 Carbon Dioxide 25 mmol/L (22-29) 04/29/24 16:20 Anion Gap 16.9 (5-19) 04/29/24 16:20 BUN 14 mg/dL (8-23) 04/29/24 16:20 Creatinine 1.3 mg/dL (0.5-0.9) H 04/29/24 16:20 GFR Calculation 40.6 mL/min (90-130) L 04/29/24 16:20 Glucose 95 mg/dL (65-115) 04/29/24 16:20 Calculated Osmolality 286 mOsm/kg (285-295) 04/29/24 16:20 Lactic Acid 2.5 mmol/L (0.5-2.2) H 04/29/24 16:20 Lactic Acid (Sepsis) 1.9 mmol/L (0.5-2.2) 04/29/24 18:23 Calcium 9.8 mg/dL (8.5-10.5) 04/29/24 16:20 Total Bilirubin 0.3 mg/dL (0.15-1.2) 04/29/24 16:20 AST 24 U/L (0-32) 04/29/24 16:20 ALT 42 U/L (0-33) H 04/29/24 16:20 Alkaline Phosphatase 74 U/L (35-105) 04/29/24 16:20 Total Protein 7.2 g/dL (6.6-8.7) 04/29/24 16:20 Albumin 4.3 g/dL (3.5-5.2) 04/29/24 16:20 Globulin 2.9 g/dL (1.3-4.6) 04/29/24 16:20 Lipase 59 U/L (13-60) 04/29/24 16:20 Urine Color Dark yellow (Yellow) A 04/29/24 16:10 Urine Appearance Cloudy (CLEAR) A 04/29/24 16:10 Urine pH 5.0 (5-7) 04/29/24 16:10 Ur Specific [place] 1.024 (1.005-1.030) 04/29/24 16:10 Urine Protein 2+ (Negative) A 04/29/24 16:10 Urine Glucose (UA) Negative (Normal) 04/29/24 16:10 Urine Ketones Trace (Negative) 04/29/24 16:10 Urine Blood 1+ (Negative) A 04/29/24 16:10 Urine Nitrate Negative (Negative) 04/29/24 16:10 Urine Bilirubin 1+ (Negative) H 04/29/24 16:10 Urine Urobilinogen 1.0 mg/dL (Negative) 04/29/24 16:10 Ur Leukocyte Esterase Trace (Negative) A 04/29/24 16:10 Urine RBC 6-10 /hpf (0-2) 04/29/24 16:10 Urine WBC 0-5 /hpf (0-5) 04/29/24 16:10 Ur Squamous Epith Cells 21-50 /hpf (0-5) 04/29/24 16:10 Amorphous Sediment Not Reportable 04/29/24 16:10 Urine Bacteria 1+ /hpf (NONE) H 04/29/24 16:10 Hyaline Casts 59.56 /lpf 04/29/24 16:10 Coarse Granular Casts 0-4 /lpf H 04/29/24 16:10 All radiology interpretation(s) finalized by discharge Discharge Plan Discharge Patient Disposition: Home Clinical Impression: Abdominal pain Condition: Stable Prescriptions: No Action epinephrine [EpiPen 2-Isacc] 0.3 mg/0.3 mL auto-injector 0.3 mg IM Q4H PRN (Reason: anaphylaxis) Qty: 2 0RF ondansetron 4 mg tablet,disintegrating 4 mg PO Q8H PRN (Reason: nausea and vomiting) Qty: 10 0RF albuterol sulfate 90 mcg/actuation HFA aerosol inhaler 2 puff inhalation Q6H PRN (Reason: shortness of breath or wheezing) Qty: 8.5 11RF triamcinolone acetonide 0.1 % lotion 1 applic topical DAILY Qty: 60 0RF rosuvastatin 40 mg tablet 40 mg PO QPM Qty: 90 0RF mupirocin 2 % ointment 1 applic topical BID 14 Days Qty: 22 1RF ropinirole 0.25 mg tablet 0.25 mg PO DAILY PRN (Reason: restless legs) clopidogrel 75 mg tablet 75 mg PO DAILY aripiprazole 2 mg tablet 2 mg PO DAILY (DME) cpap supplies See Rx Instructions .Route .MEDSUPPLY Qty: 1 0RF Rx Instructions: As directed bupropion HCl 150 mg tablet sustained-release 12 hr See Rx Instructions .ROUTE .COMPLEX Qty: 90 0RF Dose Instruction: TAKE ONE TABLET BY MOUTH DAILY Rx Instructions: TAKE ONE TABLET BY MOUTH DAILY valsartan 80 mg tablet See Rx Instructions .ROUTE .COMPLEX Qty: 30 0RF Dose Instruction: take 1 tablet by mouth once daily Rx Instructions: take 1 tablet by mouth once daily Ozempic 0.25 mg or 0.5 mg (2 mg/3 mL) pen injector See Rx Instructions .ROUTE .COMPLEX Qty: 3 1RF Hold Instructions: Doctor's Order Dose Instruction: inject 0.25mg under the skin ONCE EVERY SEVEN DAYS Rx Instructions: inject 0.25mg under the skin ONCE EVERY SEVEN DAYS levothyroxine 88 mcg capsule 88 mcg PO QAM Qty: 60 0RF aspirin 81 mg Tablet,Delayed Release (Dr/Ec) 81 mg PO DAILY Qty: 90 0RF tramadol 50 mg tablet 50 mg PO Q12H PRN (Reason: pain) Qty: 14 0RF Discharge Orders: Discharge ED (Routine); Ordered 04/29/24 Ordered By: Miya Aldana Referrals: Leila Santiago MD [Primary Care Provider] - Discharge Diet: Usual diet Discharge Activity: Increase activity as tolerated Patient Instructions: Abdominal Pain (ED), Opioid Safety, Pain Management Activity Restrictions/Additional Instructions: Thank you for choosing [facility] for your healthcare needs today. Please realize this is an emergency room and that we are providing you with a medical screening exam and this may not be complete and all inclusive of all the testing and or work up that you may need to determine your ailment or severity of your illness. You have been screened and evaluated and felt safe for discharge. Health conditions do change or evolve sometimes and as such it is important that you follow up with your Primary Doctor to be re checked, 3-5 days is a general good time frame for follow up. You are always welcome to return to the ED for re assessment if your symptoms are worsening or you have new concerns Coding Level of Care Code ED Regulation Supervisor for Anibal Guzman
[2024-04-29 16:10] VITALS: BP 121/85; PULSE 79; RESP 21; O2SAT 97
[2024-04-29 16:16] LABS: Bilirubin Urine 1+ (Negative); Blood Urine 1+ (Negative); Glucose Urine UA Negative (Normal); Ketones Urine Trace (Negative); Leukocyte Esterase Urine Trace (Negative); Nitrate Urine Negative (Negative); Protein Urine 2+ (Negative); Specific Gravity, Urine 1.024 (1.005-1.030); Urine Appearance Cloudy (CLEAR); Urine Color Dark Yellow (Yellow)
[2024-04-29 16:21] LABS: Hyaline Casts Urine 59.56 /lpf; Squamous Epithelial Cell Urine 21-50 /hpf (0-5); WBC Urine 0-5 /hpf (0-5)
[2024-04-29 16:32] LABS: Bacteria Urine 1+ /hpf
[2024-04-29 16:33] LABS: Coarse Granular Casts Urine 0-4 /lpf
[2024-04-29 16:38] LABS: Basophils # 0.1 10^3/uL (0.0-0.1); Basophils % 0.7 %; Eosinophils # 0.2 10^3/uL (0.0-0.8); Eosinophils % 2.2 %; Hematocrit 46.6 % (36-47); Lymphocytes # 2.2 10^3/uL (0.8-4.8); Lymphocytes % 30.2 %; Mean Corpuscular HGB Conc 32.2 g/dL (30-55); Mean Corpuscular Hemoglobin 29.5 pg (27-33); Mean Corpuscular Volume 91.6 fl (85-98); Mean Platelet Volume 10.9 fL (7.4-10.4); Monocytes # 0.6 10^3/uL (0.2-0.9); Monocytes % 8.6 %; Neutrophils # 4.24 10^3/uL (1.8-7.7); Nucleated Red Blood Cells % 0 %; Platelet Count 288 10^3/cmm (157-399); Red Blood Count 5.09 10^6/uL (3.85-5.65); Red Cell Distribution Width 14.3 % (12.1-15.1); White Blood Count 7.31 10^3/uL (3.29-11.43)
[2024-04-29 16:41] LABS: Lactic Sepsis W/Reflex 2.5 mmol/L (0.5-2.2)
[2024-04-29 16:42] LABS: Alanine Aminotransferase 42 U/L (0-33); Albumin Level 4.3 g/dL (3.5-5.2); Alkaline Phosphatase 74 U/L (35-105); Anion Gap 16.9 (5-19); Aspartate Amino Transferase 24 U/L (0-32); Blood Urea Nitrogen 14 mg/dL (8-23); Calcium 9.8 mg/dL (8.5-10.5); Carbon Dioxide 25 mmol/L (22-29); Chloride 100 mmol/L (98-107); Creatinine Clr Calc Pharmacy 40.8394; Globulin 2.9 g/dL (1.3-4.6); Glomerular Filtration Rate 40.6 mL/min (90-130); Glucose 95 mg/dL (65-115); Lipase 59 U/L (13-60); Osmolality Calculated 286 mOsm/kg (285-295); Potassium 3.9 mmol/L (3.5-5.1); Sodium 138 mmol/L (136-145); Total Bilirubin 0.3 mg/dL (0.15-1.2); Total Protein 7.2 g/dL (6.6-8.7)
[2024-04-29 16:48] VITALS: BP 96/68; PULSE 80; RESP 13; O2SAT 98
--- NOTE | 2024-04-29 17:09 | CTR_ITS ---
PROCEDURE INFORMATION: Exam: CT Abdomen And Pelvis With Contrast Exam date and time: 04/29/2024 5:43 PM Age: 68 years old Clinical indication: Abdominal pain; Generalized; Prior surgery; Surgery date: 6+ months; Surgery type: Gb TECHNIQUE: Imaging protocol: Computed tomography of the abdomen and pelvis with contrast. Radiation optimization: All CT scans at this facility use at least one of these dose optimization techniques: automated exposure control; mA and/or kV adjustment per patient size (includes targeted exams where dose is matched to clinical indication); or iterative reconstruction. Contrast material: OMNIPAQUE 350; Contrast volume: 100 ml; Contrast route: INTRAVENOUS (IV); COMPARISON: CT angio abd aorta runof [id number] 09/01/2021 2:59 PM RADIATION DOSE METRICS: Total DLP (mGy-cm): 551.2 FINDINGS: Liver: Hepatic steatosis. Otherwise the liver is unremarkable. Left hepatic lobe cyst. Gallbladder and biliary ducts: Gallbladder is surgically absent. Prominence of the common bile duct likely on the basis of the post cholecystectomy state. Pancreas: Normal. No ductal dilation. Spleen: Normal. No splenomegaly. Adrenal glands: Normal. No mass. Kidneys and ureters: Normal. No hydronephrosis. Stomach and bowel: Unremarkable. No obstruction. No mucosal thickening. Appendix: No evidence of appendicitis. Intraperitoneal space: Unremarkable. No free air. No significant fluid collection. Vasculature: Similar moderate to severe atherosclerosis of the abdominal aorta without aneurysm. Lymph nodes: Unremarkable. No enlarged lymph nodes. Urinary bladder: Unremarkable as visualized. Reproductive: Unremarkable as visualized. Bones/joints: Unremarkable. No acute fracture. Soft tissues: Unremarkable. CT/CT abdomen pelvis w con* [id number] IMPRESSION: No acute intra-abdominal or intrapelvic process. Incidental/chronic findings as above.
[2024-04-29] MEDS: sodium chloride 0.9% 1,000 ML 999 ML IV (17:22)
[2024-04-29 17:29] VITALS: BP 105/89; PULSE 78; RESP 17; O2SAT 95
[2024-04-29] MEDS: iohexol 350 mg/mL 500 mL Btl (per mL) IV (17:42)
[2024-04-29 18:09] LABS: Reflex Lactate Order REFLEX LACTIC ORDERD
[2024-04-29 18:41] LABS: Lactic Acid level (Lactate) 1.9 mmol/L (0.5-2.2)
[2024-04-29 19:02] VITALS: BP 107/59; PULSE 79; RESP 21; O2SAT 97
== END 2024-04-29 19:03 | disposition home or self-care (01) ==
PROVIDERS: Emergency Provider Emergency Medicine; PCP Family Medicine
DX: R10.9 Unspecified abdominal pain (principal); Z79.02 Long term (current) use of antithrombotics/antiplatelets; F17.210 Nicotine dependence, cigarettes, uncomplicated; E11.9 Type 2 diabetes mellitus without complications; J44.9 Chronic obstructive pulmonary disease, unspecified; E78.5 Hyperlipidemia, unspecified; I10 Essential (primary) hypertension
CPT/HCPCS: 36415; 74177; 80053; 81001; 83605; 83690; 85025; 99285; J7030

== ENCOUNTER → 2024-05-09 10:56 | Outpatient (BNVA) | payer MEDICARE, MEDICAID, SELFPAY | PROVIDERS: PCP Family Medicine; Visit Provider Internal Medicine | DX: E78.2 Mixed hyperlipidemia (principal); I10 Essential (primary) hypertension; I73.9 Peripheral vascular disease, unspecified; F17.210 Nicotine dependence, cigarettes, uncomplicated | CPT/HCPCS: 99214 ==

== ENCOUNTER → 2024-07-18 12:56 | Outpatient (BNVA) | payer MEDICARE, MEDICAID, SELFPAY | PROVIDERS: PCP Family Medicine; Visit Provider Nurse Practitioner Family | DX: L85.8 Other specified epidermal thickening (principal); S90.122A Contusion of left lesser toe(s) without damage to nail, initial encounter; X58.XXXA Exposure to other specified factors, initial encounter; D18.01 Hemangioma of skin and subcutaneous tissue; L81.4 Other melanin hyperpigmentation; Z08 Encounter for follow-up examination after completed treatment for malignant neoplasm; Z85.820 Personal history of malignant melanoma of skin; L82.0 Inflamed seborrheic keratosis; R20.8 Other disturbances of skin sensation; L29.89 Other pruritus; L53.8 Other specified erythematous conditions; B07.8 Other viral warts; D48.5 Neoplasm of uncertain behavior of skin; L57.0 Actinic keratosis | CPT/HCPCS: 11102; 17000; 17110; 99213 ==

== ENCOUNTER 2024-07-21 10:08 | Outpatient (CLI) | payer MEDICARE, MEDICAID, SELFPAY ==
--- NOTE | 2024-07-21 10:15 | CT_ITS ---
WS: [id number] LDCT LUNG CANCER SCREENING TECHNIQUE: Noncontrast CT of the chest with coronal and sagittal reformatted images. CLINICAL INFORMATION: lung cancer screening COMPARISON: 04/14/2023 DLP: 64.51 mGy.cm DIvol: Mean CTDIvol: 1.30 (mGy) All CT scans at [facility] use at least one of these dose optimization techniques: automated exposure control; mA and/or kV adjustment per patient size (includes targeted exams where dose is matched to clinical indication); or iterative reconstruction. FINDINGS: No new suspicious pulmonary parenchymal abnormalities. 3 mm small nodule RIGHT lung apex. No mediastinal or hilar lymphadenopathy. No axillary lymphadenopathy. Mild thoracic kyphosis. Mild aortic calcification. Dense coronary calcification. Prior cholecystectomy. Surgical clips in thyroid bed. Adrenal glands are normal. Small cyst in the dome of the liver. Normal GE junction. CT/CT lung screening [id number] IMPRESSION: LUNG-RADS: 2-Benign Appearance or Behavior FOLLOW UP: 12 Month: Continue annual screening with LDCT
== END 2024-07-21 10:09 | disposition home or self-care (01) ==
PROVIDERS: PCP Family Medicine; Visit Provider Family Medicine
DX: Z12.2 Encounter for screening for malignant neoplasm of respiratory organs (principal); Z87.891 Personal history of nicotine dependence; R91.1 Solitary pulmonary nodule; M40.294 Other kyphosis, thoracic region; I70.0 Atherosclerosis of aorta; I25.10 Atherosclerotic heart disease of native coronary artery without angina pectoris; Z90.49 Acquired absence of other specified parts of digestive tract; K76.89 Other specified diseases of liver
CPT/HCPCS: 71271

== ENCOUNTER → 2024-08-08 13:58 | Outpatient (BNVA) | payer MEDICARE, MEDICAID, SELFPAY | PROVIDERS: PCP Family Medicine; Visit Provider Nurse Practitioner Family | DX: L85.8 Other specified epidermal thickening (principal); L81.4 Other melanin hyperpigmentation; Z08 Encounter for follow-up examination after completed treatment for malignant neoplasm; Z85.820 Personal history of malignant melanoma of skin; B07.8 Other viral warts; L29.89 Other pruritus; L53.8 Other specified erythematous conditions; L82.0 Inflamed seborrheic keratosis | CPT/HCPCS: 17110; 99213 ==

== ENCOUNTER → 2024-08-21 13:44 | Outpatient (BNVA) | payer MEDICARE, MEDICAID, SELFPAY | PROVIDERS: PCP Family Medicine; Visit Provider Family Medicine | DX: E11.9 Type 2 diabetes mellitus without complications (principal); E89.0 Postprocedural hypothyroidism | CPT/HCPCS: 80053; 80061; 82607; 83036; 84443 ==

== ENCOUNTER → 2024-09-07 13:00 | Outpatient (BNVA) | payer MEDICARE, MEDICAID, SELFPAY | PROVIDERS: PCP Family Medicine; Visit Provider Nurse Practitioner Family | DX: L85.8 Other specified epidermal thickening (principal); L81.4 Other melanin hyperpigmentation; Z08 Encounter for follow-up examination after completed treatment for malignant neoplasm; Z85.820 Personal history of malignant melanoma of skin; B07.8 Other viral warts; L53.8 Other specified erythematous conditions; L29.89 Other pruritus; L82.0 Inflamed seborrheic keratosis; R20.9 Unspecified disturbances of skin sensation; R20.8 Other disturbances of skin sensation; R23.8 Other skin changes | CPT/HCPCS: 17110; 99214 ==

== ENCOUNTER 2024-09-08 13:57 | Outpatient (CLI) | payer MEDICARE, MEDICAID, SELFPAY ==
--- NOTE | 2024-09-08 14:02 | MM_ITS ---
WS: [id number] BILATERAL 3D TOMOSYNTHESIS DIGITAL SCREENING MAMMOGRAPHY WITH CAD CLINICAL INFORMATION: SCREENING HISTORY: Screening mammogram. No current complaints. COMPARISON: 2023 TECHNIQUE: Bilateral CC and MLO views. FINDINGS: Scattered fibroglandular densities bilaterally. No suspicious focal mass, asymmetry, calcifications, or architectural distortion. No evidence of malignancy. RIGHT breast biopsy clip with stable nodule. Stable cluster calcifications. MM/MM scr tomosynthesis [id number] IMPRESSION: DENSITY: There are scattered areas of fibroglandular density. BI-RADS: 2 - Benign. FOLLOW UP: 1 Year Follow-up Recommend return to annual screening mammography.
== END 2024-09-08 13:58 | disposition home or self-care (01) ==
PROVIDERS: PCP Family Medicine; Visit Provider Family Medicine
DX: Z12.31 Encounter for screening mammogram for malignant neoplasm of breast (principal); R92.323 Mammographic fibroglandular density, bilateral breasts; N63.10 Unspecified lump in the right breast, unspecified quadrant; R92.1 Mammographic calcification found on diagnostic imaging of breast
CPT/HCPCS: 77063; 77067

== ENCOUNTER → 2024-10-09 10:20 | Outpatient (BNVA) | payer MEDICARE, MEDICAID, SELFPAY | PROVIDERS: PCP Family Medicine; Visit Provider Student in an Organized Health Care Education/Training Program | DX: R19.4 Change in bowel habit (principal) | CPT/HCPCS: 99204 ==

== ENCOUNTER 2024-10-16 11:51 | Outpatient (CLI) | payer MEDICARE, MEDICAID, SELFPAY ==
--- NOTE | 2024-10-16 12:00 | XRR_ITS ---
PROCEDURE INFORMATION: Exam: XR Abdomen Exam date and time: 10/16/2024 12:09 PM Age: 69 years old Clinical indication: Other: Full incontinence of feces; Prior surgery; Surgery date: 6+ months; Surgery type: Bladder, hysterectomy; Additional info: Full incontinence of feces x 3 weeks TECHNIQUE: Imaging protocol: Radiologic exam of the abdomen. Views: Frontal supine view of the abdomen. 1 View. COMPARISON: CT abdomen pelvis w con* [id number] 04/29/2024 5:43 PM FINDINGS: Gastrointestinal tract: Moderate stool burden in the ascending colon. No dilated small bowel loops. Organs: Status post cholecystectomy. Bones/joints: Unremarkable. XR/XR KUB [id number] IMPRESSION: Moderate stool burden in the ascending colon.
== END 2024-10-16 11:52 | disposition home or self-care (01) ==
LOC: RAD 11:54
PROVIDERS: PCP Family Medicine; Visit Provider Nurse Practitioner Family
DX: R15.9 Full incontinence of feces (principal); R93.89 Abnormal findings on diagnostic imaging of other specified body structures; Z90.49 Acquired absence of other specified parts of digestive tract
CPT/HCPCS: 74018

== ENCOUNTER 2024-11-14 08:23 | Day surgery (SDC) | payer MEDICARE, MEDICAID, SELFPAY ==
[2024-11-14 08:40] VITALS: BP 144/95; PULSE 78; RESP 17; TEMP 37.2; O2SAT 96
[2024-11-14 08:49] VITALS: BMI 25.0
[2024-11-14] MEDS: sodium chloride 0.9% 1,000 ML 15 ML IV (08:54)
[2024-11-14 08:57] LABS: Glucose Point of Care 118 mg/dL (70-110)
--- NOTE | 2024-11-14 09:04 | ANES.PREANE2 ---
Pre-Anesthetic Assessment Height/Weight: Height 1.68 m Weight 70.307 kg Temp Pulse Resp BP Pulse Ox O2 Del Method 99.0 F 78 17 144/95 96 Room Air 11/14/24 08:40 11/14/24 08:40 11/14/24 08:40 11/14/24 08:40 11/14/24 08:40 11/14/24 08:40 Preop Diagnosis: bowel issues Operation Date: 11/14/24 09:45 Proposed Procedures p Colonoscopy 84690 G0105, R19.4(Not Applicable) - Gabe Bowman MD Familial anesthetic complications: none Was Beta Yanick taken within 24 hours: N/A Was Clonidine taken within 24 hours: N/A Last intake: Intake Last Liquid Date 11/13/24 Last Liquid Time 18:00 Last Solid Date 11/12/24 Last Solid Time 17:00 Social Tobacco and No alcohol 1 PPD pack(s) per day Exam alert, oriented x 3, clear to auscultation bilaterally and regular rate & rhythm Airway Submandibular: within normal limits Cervical ROM: within normal limits Mallampati: Class II Dentition: false History/ROS No significant history except as noted and No significant complaints Pulmonary Chronic Obstructive Pulmonary Disease and Sleep Apnea CV/HEM Coronary Artery Disease and Hypertension None reported Hepatic None reported GI None reported Metabolic None reported Musc/skel None reported Neuropsych Cerebrovascular Accident cerebral aneurysm, repaired Anesthetic Plan ASA status: 3 Anesthesia: MAC Risk of > 500 ml blood loss (7ml/kg in children): No Medications/Allergies Home Medications ?Medication ?Instructions ?Recorded ?Confirmed ?Last Taken ?Type epinephrine 0.3 mg/0.3 mL 0.3 mg (0.3 mL) IM Q4H PRN 12/21/22 11/14/24 11/09/24 Rx injection, auto-injector (EpiPen anaphylaxis #2 ea 2-Isacc) cpap supplies #1 ea 01/15/23 11/09/24 11/09/24 Rx albuterol sulfate 90 mcg/actuation 2 puff inhalation Q6H PRN 04/06/23 11/14/24 11/09/24 Rx aerosol inhaler shortness of breath or wheezing #8.5 grams rosuvastatin 40 mg tablet 40 mg PO QPM #90 tabs 05/20/23 11/14/24 11/13/24 Rx clopidogrel 75 mg tablet 75 mg PO DAILY 08/11/23 11/14/24 11/09/24 History aripiprazole 2 mg tablet 2 mg PO DAILY 10/12/23 11/14/24 11/13/24 History cpap supplies #1 ea 08/21/24 11/09/24 11/09/24 Rx valsartan 320 mg tablet 320 mg PO DAILY 10/09/24 11/14/24 11/13/24 History levothyroxine 88 mcg tablet 88 mcg PO DAILY 11/09/24 11/14/24 11/13/24 History metformin 500 mg tablet 500 mg PO DAILY 11/09/24 11/14/24 11/12/24 History Allergies Allergy/AdvReac Type Severity Reaction Status Date / Time Sulfa (Sulfonamide Allergy Unknown hives, Verified 11/14/24 08:36 Antibiotics) lips swelling naproxen AdvReac Severe breaks out Verified 11/14/24 08:36 in hives, lips and mouth start swelling Current Medications Generic Name Dose Route Start Last Admin Trade Name Freq PRN Reason Stop Dose Admin Sodium Chloride 1,000 mls @ 15 mls/hr 11/14/24 08:33 11/14/24 08:54 Sodium Chloride 0.9% IV 11/15/24 08:32 15 mls/hr .Q24H PRN Administration COLONOSCOPY FLUIDS PFSH Anesthesia Medical History (Updated 10/09/24 @ 10:43 by Gabe Bowman MD) Smoker Diverticula of colon Hypothyroidism, postsurgical Constipation Osteopenia High risk for hip fracture Diabetes mellitus Bradycardia Hypothyroidism Sleep apnea COPD (chronic obstructive pulmonary disease) Hyperlipidemia HTN (hypertension) Surgical History History of total hysterectomy with bilateral salpingo-oophorectomy (BSO) benign pathology History of dilatation and curettage History of cholecystectomy Family History Father Alcoholism Cancer lung Heart disease Hypertension Mother Hypertension Sister Heart disease Hypertension Brother Heart disease Hypertension CAD (coronary artery disease) Diabetes Denies family history of Anesthesia complication Bleeding disorder Social History Smoking and tobacco/nicotine status: current every day tobacco/nicotine user cigarettes Packs smoked per day: 1 Years cigarettes smoked: 54 Quit status (tobacco/nicotine): has tried quititng Alcohol intake: never Substance/Drug Use: former Date of last use: 35 years ago, cocaine, no hx iv drugs Adopted: Yes Household members: family Marital status: Number of children: 3 Number of grandchildren: 5 Current occupational status: retired 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
--- NOTE | 2024-11-14 09:16 | W.PM.OPSFHP ---
Same Day Surgery H&P Indication for Procedure/HPI DATE OF PROCEDURE: November 14, 2024 CHIEF COMPLAINT/INDICATIONFOR SURGICAL PROCEDURE: changes in bowel habits PREOP DIAGNOSIS: changes in bowel habits PLANNED PROCEDURE: Operation Date: 11/14/24 09:45 Proposed Procedures p Colonoscopy [id number], R19.4(Not Applicable) - Gabe Bowman MD Medications/Allergies* Home Medications ?Medication ?Instructions ?Recorded ?Confirmed ?Type clopidogrel 75 mg tablet 75 mg PO DAILY 08/11/23 11/14/24 History aripiprazole 2 mg tablet 2 mg PO DAILY 10/12/23 11/14/24 History valsartan 320 mg tablet 320 mg PO DAILY 10/09/24 11/14/24 History levothyroxine 88 mcg tablet 88 mcg PO DAILY 11/09/24 11/14/24 History metformin 500 mg tablet 500 mg PO DAILY 11/09/24 11/14/24 History Allergies/Adverse Reactions Allergy/AdvReac Type Severity Reaction Status Date / Time Sulfa (Sulfonamide Allergy Unknown hives, Verified 11/14/24 08:36 Antibiotics) lips swelling naproxen AdvReac Severe breaks out Verified 11/14/24 08:36 in hives, lips and mouth start swelling Current Medications: Generic Name Dose Route Start Last Admin Trade Name Freq PRN Reason Stop Dose Admin Sodium Chloride 1,000 mls @ 15 mls/hr 11/14/24 08:33 11/14/24 08:54 Sodium Chloride 0.9% IV 11/15/24 08:32 15 mls/hr .Q24H PRN Administration COLONOSCOPY FLUIDS Pertinent History/Comorbid Conditions* Medical History (Updated 10/09/24 @ 10:43 by Gabe Bowman MD) Smoker Diverticula of colon Hypothyroidism, postsurgical Constipation Osteopenia High risk for hip fracture Diabetes mellitus Bradycardia Hypothyroidism Sleep apnea COPD (chronic obstructive pulmonary disease) Hyperlipidemia HTN (hypertension) Surgical History (Updated 09/28/22 @ 13:27 by Mercy Garcia MD) History of total hysterectomy with bilateral salpingo-oophorectomy (BSO) benign pathology History of dilatation and curettage History of cholecystectomy Family History (Updated 09/28/22 @ 13:31 by Mercy Garcia MD) Diabetes Brother CAD (coronary artery disease) Brother Alcoholism Father Heart disease Father Sister Brother Cancer Father lung Hypertension Father Mother Sister Brother Denies family history of Anesthesia complication Bleeding disorder Social History Smoking and tobacco/nicotine status: current every day tobacco/nicotine user cigarettes Packs smoked per day: 1 Years cigarettes smoked: 54 Quit status (tobacco/nicotine): has tried quititng Alcohol intake: never Substance/Drug Use: former Date of last use: 35 years ago, cocaine, no hx iv drugs Adopted: Yes Household members: family Marital status: Number of children: 3 Number of grandchildren: 5 Current occupational status: retired 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
[2024-11-14 09:57] VITALS: BP 90/59; PULSE 65; RESP 16; TEMP 36.2; O2SAT 92
--- NOTE | 2024-11-14 10:40 | ANE.PACU2 ---
Inpatient post-anesthesia follow up: Airway intact: Yes Vital signs: Temperature 97.1 F Pulse Rate 65 Respiratory Rate 16 Blood Pressure 90/59 Pulse Oximetry 92 Oxygen Delivery Me thod Room Air Oxygen Flow Rate Fraction of Inspir ed Oxygen Hydration adequate: Yes Nausea and vomiting: No Pain level: 1 Mental status: Baseline
== END 2024-11-14 10:40 | disposition home or self-care (01) ==
PROVIDERS: PCP Family Medicine; Visit Provider Student in an Organized Health Care Education/Training Program
PROC: 0DJD8ZZ Inspection of Lower Intestinal Tract, Via Natural or Artificial Opening Endoscopic (ICD-10-PCS; CPT 45330; 2024-11-14 09:45)
DX: Q43.8 Other specified congenital malformations of intestine (principal); R19.4 Change in bowel habit; Z53.8 Procedure and treatment not carried out for other reasons; J44.9 Chronic obstructive pulmonary disease, unspecified; I25.10 Atherosclerotic heart disease of native coronary artery without angina pectoris; I10 Essential (primary) hypertension; G47.30 Sleep apnea, unspecified; E11.9 Type 2 diabetes mellitus without complications; E89.0 Postprocedural hypothyroidism; F17.210 Nicotine dependence, cigarettes, uncomplicated; E78.5 Hyperlipidemia, unspecified; Z86.73 Personal history of transient ischemic attack (TIA), and cerebral infarction without residual deficits; Z86.79 Personal history of other diseases of the circulatory system; Z79.84 Long term (current) use of oral hypoglycemic drugs; Z79.02 Long term (current) use of antithrombotics/antiplatelets; Z79.899 Other long term (current) drug therapy; Z79.890 Hormone replacement therapy; Z88.2 Allergy status to sulfonamides; Z88.8 Allergy status to other drugs, medicaments and biological substances; Z90.49 Acquired absence of other specified parts of digestive tract; Z90.710 Acquired absence of both cervix and uterus
CPT/HCPCS: 36416; 45378; 82962; J2371; J2704; J7030

== ENCOUNTER 2024-11-30 15:07 | Outpatient (CLI) | payer MEDICARE, MEDICAID, SELFPAY ==
[2024-11-30] MEDS: iohexol 350 mg/mL 500 mL Btl (per mL) PO (16:01)
--- NOTE | 2024-11-30 16:30 | CT_ITS ---
WS: [id number] CT ABDOMEN AND PELVIS WITH CONTRAST HISTORY: elevated cea TECHNIQUE: Imaging performed of the abdomen and pelvis with IV contrast. Single phase imaging of the abdomen. Coronal and sagittal reformats are submitted. All CT scans at [facility] use at least one of these dose optimization techniques: automated exposure control; mA and/or kV adjustment per patient size (includes targeted exams where dose is matched to clinical indication); or iterative reconstruction. IV CONTRAST: Omnipaque 350; 100 mL IV. Oral contrast: Yes. DLP: 407.94 mGy.cm COMPARISON: 04/29/2024 Lower thorax: Hyperexpanded lung bases from emphysema. Heart is normal size. No hiatal hernia. Liver/biliary system: Normal size liver. 9 mm cyst in the LEFT lobe of the liver. Normal portal vein. Gallbladder: Prior cholecystectomy. Pancreas: Normal size pancreas and pancreatic duct. No adjacent inflammation. Spleen: Normal size spleen. No mass or infarct. Adrenal glands: Normal. Right kidney: Normal. Left kidney: Normal. Aorta: Moderate plaque throughout the abdominal aorta and at the origin of the mesenteric arteries. No occlusions. Dense calcification continues into the iliac arteries. Bilateral iliac artery stenosis. Lymphadenopathy: Small retroperitoneal lymph nodes. Free fluid: None. GI tract: Well distended stomach. No small bowel obstruction. No obstructing colonic lesions identified. No circumferential wall thickening. Colon is tortuous distally. Appendix not identified. Abdominal wall: Fat containing umbilical hernia. Pelvis: Prior hysterectomy. Urinary bladder is not distended. No adenopathy or free fluid. Bones: RIGHT curvature lumbar spine. Degenerative disc disease. Mild anterior wedging of L4. CT/CT abdomen pelvis w con* [id number] IMPRESSION: 1. No colonic lesions or obstruction identified. 2. No metastatic adenopathy or ascites. 3. LEFT hepatic cyst. 4. Prior cholecystectomy. 5. Prior hysterectomy.
[2024-11-30 16:32] LABS: Blood Urea Nitrogen 14 mg/dL (8-23); Glomerular Filtration Rate 61.9 mL/min (90-130)
[2024-11-30] MEDS: iohexol 350 mg/mL 500 mL Btl (per mL) IV (16:38)
== END 2024-11-30 15:08 | disposition home or self-care (01) ==
LOC: RAD 15:08
PROVIDERS: PCP Family Medicine; Visit Provider Family Medicine
DX: R97.0 Elevated carcinoembryonic antigen [CEA] (principal); R19.4 Change in bowel habit; Z86.0100 Personal history of colon polyps, unspecified; K76.89 Other specified diseases of liver; Z90.49 Acquired absence of other specified parts of digestive tract; Z90.710 Acquired absence of both cervix and uterus; J43.9 Emphysema, unspecified; I70.0 Atherosclerosis of aorta; K55.1 Chronic vascular disorders of intestine; I70.8 Atherosclerosis of other arteries; R59.0 Localized enlarged lymph nodes; R93.89 Abnormal findings on diagnostic imaging of other specified body structures; K42.9 Umbilical hernia without obstruction or gangrene; M43.8X6 Other specified deforming dorsopathies, lumbar region; M48.56XA Collapsed vertebra, not elsewhere classified, lumbar region, initial encounter for fracture
CPT/HCPCS: 74177; 82565; 84520

== ENCOUNTER 2025-01-03 12:03 | Outpatient (CLI) | payer MEDICARE, MEDICAID, SELFPAY ==
--- NOTE | 2025-01-03 12:08 | XRR_ITS ---
PROCEDURE INFORMATION: Exam: XR Abdomen Exam date and time: 01/03/2025 12:14 PM Age: 69 years old Clinical indication: Condition or disease; Other: Other specified congenital malformations of intestine; Prior surgery; Surgery date: 6+ months; Surgery type: Hyst, gb, bladder repair; Marker study test, swallowed at 820 am TECHNIQUE: Imaging protocol: Radiologic exam of the abdomen. Views: Frontal supine view of the abdomen. 1 View. COMPARISON: CT abdomen pelvis w con* [id number] 11/30/2024 4:36 PM FINDINGS: Gastrointestinal tract: No bowel dilation. Intraperitoneal space: Small radiopaque marker is seen in the right lower pelvis. It is uncertain if it is within large or small bowel. Right lower quadrant mesh markers and right upper quadrant clips are seen. Bones/joints: Unremarkable. XR/XR KUB [id number] IMPRESSION: As above.
== END 2025-01-03 12:04 | disposition home or self-care (01) ==
LOC: RAD 12:04
PROVIDERS: PCP Family Medicine; Visit Provider Colon & Rectal Surgery
DX: Q43.8 Other specified congenital malformations of intestine (principal)
CPT/HCPCS: 74018

== ENCOUNTER 2025-01-08 12:33 | Outpatient (CLI) | payer MEDICARE, MEDICAID, SELFPAY ==
--- NOTE | 2025-01-08 12:37 | XR_ITS ---
WS: [id number] XR KUB [id number] REASON FOR EXAM: OTHER SPECIFIED CONGENITAL MALFORMATIONS OF INTESTINE FINDINGS: No free air or retroperitoneal air. Nonspecific bowel gas pattern with mild dilatation of segments of colon and small bowel. Multiple small radiopaque rings in the right lower quadrant mid right abdomen and central and right pelvis. Several of these radiopacities are changed in position compared to 01/03/2025 presumably indicating they are within the gastrointestinal tract. No history was given regarding foreign body ingestion or deliberate administration of radiopaque markers for gastrointestinal inertia evaluation. XR/XR KUB [id number] IMPRESSION: Nonspecific bowel gas pattern. Multiple radiopacities as above.
== END 2025-01-08 12:34 | disposition home or self-care (01) ==
LOC: RAD 12:34
PROVIDERS: PCP Family Medicine; Visit Provider Colon & Rectal Surgery
DX: Q43.8 Other specified congenital malformations of intestine (principal); R93.7 Abnormal findings on diagnostic imaging of other parts of musculoskeletal system
CPT/HCPCS: 74018

== ENCOUNTER → 2025-02-06 14:59 | Outpatient (BNVA) | payer MEDICARE, MEDICAID, SELFPAY | PROVIDERS: PCP Family Medicine; Visit Provider Internal Medicine | DX: I73.9 Peripheral vascular disease, unspecified (principal); F17.210 Nicotine dependence, cigarettes, uncomplicated | CPT/HCPCS: 99214 ==

== ENCOUNTER → 2025-02-16 14:22 | Outpatient (BNVA) | payer MEDICARE, MEDICAID, SELFPAY | PROVIDERS: PCP Family Medicine; Visit Provider Nurse Practitioner Family | DX: L81.4 Other melanin hyperpigmentation (principal); D18.01 Hemangioma of skin and subcutaneous tissue; L82.1 Other seborrheic keratosis; S90.912A Unspecified superficial injury of left ankle, initial encounter; X58.XXXA Exposure to other specified factors, initial encounter; Z08 Encounter for follow-up examination after completed treatment for malignant neoplasm; Z85.820 Personal history of malignant melanoma of skin | CPT/HCPCS: 99213 ==